=== PATIENT | female | born 1945 | race Caucasian/White ===

== ENCOUNTER 2019-03-27 05:18 | Inpatient (IN) ==
--- NOTE | 2019-03-27 05:55 | Emergency Department Note ---
Entered by Janeth Ty acting as a scribe for Debbie Berger DO History of Present Illness General Chief complaint: Congestion Stated complaint: CONGESTED,TROUBLE BREATHING,WHEEZING Time Seen by Provider: 03/27/19 05:28 Source: patient Limitations: no limitations History of Present Illness Onset (ago): hour(s) (this morning) Location: neck (throat) Severity: similar to prior episodes Pain Consistency: + constant Current Pain Intensity: 0 Quality: + other (congestion) Associated symptoms: + denies other symptoms ( fevers/chills, rhinorrhea, sore throat, difficulty swallowing, dizziness, and nausea/vomiting), + cough and + shortness of breath The patient is a 73 year old female who presents to the Emergency Room with complaints of constant congestion in her throat that was worse this morning. She notes that she has had similar episodes over the last month, noting that decongestants usually provided some relief. The patient complains of a "rattling in her neck" when she breaths. The patient denies any pain. She complains of a productive cough and minor SOB. The patient denies any fevers/chills, rhinorrhea, sore throat, difficulty swallowing, dizziness, and nausea/vomiting. She denies any exposure to anything new. The patient reports that she saw her PCP about her symptoms, and she saw a specialist at [facility]. She notes that a CT of her neck and a blood work was done at that time. No hx of asthma/COPD. No smoking hx. No cardiac hx or CHF. Has never had an EKG. Home Medications Home Medications Medication Instructions Recorded Confirmed Type aspirin 81 mg PO DAILY 03/27/19 03/27/19 History atorvastatin 10 mg PO HS 03/27/19 03/27/19 History benzonatate 100 mg PO TID PRN 03/27/19 03/27/19 History levothyroxine [Synthroid] 125 mcg PO DAILY 03/27/19 03/27/19 History Allergies Allergy/AdvReac Type Severity Reaction Status Date / Time Iodinated Contrast- Oral and Allergy Intermediate sob/unsteady Verified 03/27/19 05:56 IV Dye gait codeine Allergy Mild nausea/vomi Verified 03/27/19 05:56 ting Past Med/Surg History Medical History HLD (hyperlipidemia) Hypothyroidism Papillary thyroid carcinoma Surgical History History of appendectomy History of salpingo-oophorectomy Family History Father Alzheimer disease Mother Alive and well Brother Alive and well Social History Preferred Language: Croatian Communication Ability: Effective Client Coordinator Required: No Beliefs That Will Affect Care: None marital status: Current Living Situation: Spouse Feels Safe at Home: Yes Safety Concerns: Feels Safe At This Time Smoking Status: Never smoker Hx Alcohol Use: No Hx Substance Use: No Review of Systems See HPI for pertinent positives & negatives. and A total of 10 systems reviewed and were otherwise negative Physical Exam Vital Signs Vital Signs - 24 hr 03/27/19 05:23 03/27/19 06:04 Temperature 36.6 C Temperature Source Oral Sepsis Recent Fever Within 48 Hours No Sepsis New/Unexplained Change in Mental Status No Sepsis Action Taken by Nursing No Action Required Pulse Rate 115 H Pulse Rate [Finger] 107 H Respiratory Rate 18 24 Respiratory Depth Normal Blood Pressure 185/87 H Blood Pressure [Left Arm] 179/108 H Blood Pressure Mean 119 Blood Pressure Mean [Left Arm] 131 Pulse Oximetry 100 88 L Oxygen Delivery Method Room Air GENERAL: alert, anxious appearing, well nourished, no distress, non-toxic EYE EXAM: normal conjunctiva, PERRL and EOM's grossly intact OROPHARYNX: no exudate, no erythema, lips, buccal mucosa, and tongue normal and mucous membranes are moist NECK: supple, no nuchal rigidity, no adenopathy, non-tender LUNGS: Normal chest wall mechanics. Tachypnea. HEART: no murmurs, S1 normal and S2 normal ABDOMEN: abdomen soft, non-tender, normo-active bowel sounds, no masses, no rebound or guarding. BACK: Back is symmetrical on inspection and there is no deformity, no midline tenderness, no CVA tenderness. SKIN: no rashes and no bruising UPPER EXTREMITIES: upper extremities are grossly normal. FROM, nml pulses b/l. LOWER EXTREMITIES: No pitting edema. FROM, nml pulses b/l. NEURO EXAM: Normal sensorium, cranial nerves II-XII grossly intact, normal speech, no gross weakness of arms, no gross weakness of legs. Course 0531: The patient was evaluated in room B02. A complete history and physical exam was performed. 0610: I reevaluated the patient and updated her on her results. 0633: [facility] He will further evaluate the patient. 0650: I updated the patient about the plan, and she was in agreement. Consultations Consultation #1: I spoke with Dr. Guan, [facility], about the patients case. He will further evaluate the patient. Time: 06:33 Administered Medications Aspirin (Ecotrin Ectab) 81 mg PO DAILY [facility] Stop: 04/26/19 10:14 Last Admin: 03/27/19 11:38 Dose: 81 mg Documented by: [id number] Atorvastatin Calcium (Lipitor) 10 mg PO QAM [facility] Stop: 04/26/19 10:14 Last Admin: 03/27/19 11:38 Dose: 10 mg Documented by: [id number] Heparin Sodium/Dextrose (Heparin Sodium/Dextrose) 25,000 units in 500 mls @ 17 mls/hr IV .Q24H JORDAN; Protocol Stop: 04/26/19 12:14 Last Titration: 03/27/19 20:29 Dose: 1,000 units/hr, 20 mls/hr Documented by: [id number] Cosigned by: [id number] Titration: 03/27/19 15:18 Dose: 850 units/hr, 17 mls/hr Documented by: [id number] Cosigned by: [id number] Admin: 03/27/19 13:41 Dose: 850 units/hr, 17 mls/hr Documented by: [id number] Cosigned by: [id number] Levothyroxine Sodium (Synthroid) 125 mcg PO DAILYBB [facility] Stop: 04/26/19 10:14 Last Admin: 03/27/19 11:38 Dose: 125 mcg Documented by: [id number] Lisinopril (Zestril) 2.5 mg PO QAM [facility] Stop: 04/26/19 13:59 Last Admin: 03/27/19 15:01 Dose: 2.5 mg Documented by: [id number] Metoprolol Tartrate (Lopressor) 25 mg PO BID [facility] Stop: 04/26/19 20:59 Last Admin: 03/27/19 20:25 Dose: 25 mg Documented by: [id number] Discontinued Medications Aspirin (Aspirin Chew) Confirm Administered Dose 162 mg .ROUTE .STK-MED ONE Stop: 03/27/19 12:15 Last Admin: 03/27/19 12:26 Dose: 162 mg Documented by: [id number] Enoxaparin Sodium (Lovenox) 30 mg SQ Q24H JORDAN Stop: 04/26/19 11:29 Last Admin: 03/27/19 11:39 Dose: 30 mg Documented by: [id number] Furosemide (Lasix) 40 mg IV NOW STA Stop: 03/27/19 06:30 Last Admin: 03/27/19 06:47 Dose: 40 mg Documented by: [id number] Heparin Sodium (Porcine) 4,000 (units/ Syringe) 4 mls @ 10 mls/min IV NOW ONE Stop: 03/27/19 12:31 Last Admin: 03/27/19 12:51 Dose: 10 mls/min Documented by: [id number] Cosigned by: [id number] Heparin Sodium (Porcine) 4,500 (units/ Syringe) 4.5 mls @ 10 mls/min IV ONE STA Stop: 03/27/19 20:32 Last Admin: 03/27/19 20:44 Dose: 10 mls/min Documented by: [id number] Cosigned by: [id number] Metoprolol Tartrate (Lopressor) 25 mg PO ONE STA Stop: 03/27/19 14:03 Last Admin: 03/27/19 14:27 Dose: 25 mg Documented by: [id number] Prednisone (Prednisone) 50 mg PO ONE ONE Stop: 03/27/19 19:01 Last Admin: 03/27/19 20:00 Dose: 50 mg Documented by: [id number] Medical Decision Making Differential Diagnosis Etiologies such as infections, reactive airway disease, COPD, pneumonia, pleural effusion, pulmonary edema, ARDS, pneumothorax, CHF, cardiac ischemia, cardiac tamponade, dysrhythmia, anemia, pulmonary embolism, musculoskeletal, gastrointestinal process, as well as others were entertained. Medical Records Attestation: I reviewed the patient's medical records. Home Medications Current Medication List: was personally reviewed by me Laboratory Data Attestation: I reviewed the patient's lab results. Result diagrams: 03/27/19 05:47 03/27/19 05:47 Lab Results 03/27/19 03/27/19 03/27/19 Range/Units 05:47 05:47 05:47 WBC 12.56 H (4.8-10.8) K/uL RBC 5.01 (4.2-5.4) M/uL Hgb 15.5 (12.0-16.0) g/dL Hct 43.4 (37-47) % MCV 86.6 (80-100) fL MCH 30.9 (25-34) pg MCHC 35.7 (32-36) g/dL RDW Std Deviation 43.4 (36.4-46.3) fL RDW Coeff of Eduard 13.7 (11.5-14.5) % Plt Count 263 (130-400) K/uL MPV 9.9 (7.4-10.4) fL Immature Gran % (Auto) 0.2 % Neut % (Auto) 82.6 % Lymph % (Auto) 11.3 % [place] % (Auto) 5.5 % Eos % (Auto) 0.3 % Baso % (Auto) 0.1 % Immature Gran # (Auto) 0.02 (0.00-0.02) K/uL Neut # (Auto) 10.38 H (1.4-6.5) K/uL Lymph # (Auto) 1.42 (1.2-3.4) K/uL [place] # (Auto) 0.69 H (0.11-0.59) K/uL Eos # (Auto) 0.04 (0-0.5) K/uL Baso # (Auto) 0.01 (0-0.2) K/uL D-Dimer 370 (0-500) ug/L FEU Sodium 142 (136-145) mmol/L Potassium 3.8 (3.5-5.1) mmol/L Chloride 107 (98-107) mmol/L Carbon Dioxide 25 (21-32) mmol/L Anion Gap 10.0 (3-11) BUN 21 H (7-18) mg/dl Creatinine 0.93 (0.6-1.2) mg/dl Est Cr Clr Drug Dosing 56.1 ml/min Est GFR ( Amer) 71.2 Est GFR (Non-Af Amer) 61.4 BUN/Creatinine Ratio 22.8 H (10-20) Glucose 181 H (70-99) mg/dl Calcium 8.6 (8.5-10.1) mg/dl Magnesium 2.0 (1.8-2.4) mg/dl Total Bilirubin 0.5 (0.2-1) mg/dl AST 17 (15-37) U/L ALT 28 (12-78) U/L Alkaline Phosphatase 131 H (45-117) U/L Troponin I 0.029 (0-0.045) ng/ml NT-Pro-B Natriuret Pep 1317 H (0-900) pg/ml Total Protein 6.7 (6.4-8.2) gm/dl Albumin 3.7 (3.4-5.0) gm/dl Globulin 3.0 (2.5-4.0) gm/dl Albumin/Globulin Ratio 1.2 (0.9-2) TSH (0.300-4.500) uIu/ml 03/27/19 Range/Units 05:47 WBC (4.8-10.8) K/uL RBC (4.2-5.4) M/uL Hgb (12.0-16.0) g/dL Hct (37-47) % MCV (80-100) fL MCH (25-34) pg MCHC (32-36) g/dL RDW Std Deviation (36.4-46.3) fL RDW Coeff of Eduard (11.5-14.5) % Plt Count (130-400) K/uL MPV (7.4-10.4) fL Immature Gran % (Auto) % Neut % (Auto) % Lymph % (Auto) % [place] % (Auto) % Eos % (Auto) % Baso % (Auto) % Immature Gran # (Auto) (0.00-0.02) K/uL Neut # (Auto) (1.4-6.5) K/uL Lymph # (Auto) (1.2-3.4) K/uL [place] # (Auto) (0.11-0.59) K/uL Eos # (Auto) (0-0.5) K/uL Baso # (Auto) (0-0.2) K/uL D-Dimer (0-500) ug/L FEU Sodium (136-145) mmol/L Potassium (3.5-5.1) mmol/L Chloride (98-107) mmol/L Carbon Dioxide (21-32) mmol/L Anion Gap (3-11) BUN (7-18) mg/dl Creatinine (0.6-1.2) mg/dl Est Cr Clr Drug Dosing ml/min Est GFR ( Amer) Est GFR (Non-Af Amer) BUN/Creatinine Ratio (10-20) Glucose (70-99) mg/dl Calcium (8.5-10.1) mg/dl Magnesium (1.8-2.4) mg/dl Total Bilirubin (0.2-1) mg/dl AST (15-37) U/L ALT (12-78) U/L Alkaline Phosphatase (45-117) U/L Troponin I (0-0.045) ng/ml NT-Pro-B Natriuret Pep (0-900) pg/ml Total Protein (6.4-8.2) gm/dl Albumin (3.4-5.0) gm/dl Globulin (2.5-4.0) gm/dl Albumin/Globulin Ratio (0.9-2) TSH 0.689 (0.300-4.500) uIu/ml Imaging Data Attestation: I personally reviewed and interpreted this imaging study as follows: My Impression: XR CHEST 2V: No cardiomegaly. No effusions. No focal consolidation. Increased interstitial markings bilaterally. No wide mediastinum. No pneumothorax. ECG Data Attestation: I personally reviewed and interpreted this ECG as follows: Indication: SOB/dyspnea Rate (beats per minute): 110 Rhythm: sinus tachycardia Findings: + other (Prolonged PTC), + LBBB and + PVC Comparison ECG Date: no prior available Blood Pressure Blood Pressure Findings: Elevated blood pressure Blood Pressure Disposition: further management by hospitalist DAVID Mena Patient presenting here with concerning story for shortness of breath that is been going on for approximately 1 month. Patient with no prior cardiac history or prior cardiac testing including an EKG. EKG found to have a left bundle branch block, however patient with no chest pain noted over the course of the month or at present in the emergency room. Patient has no trouble breathing at rest, however with persistent questioning I was able to elicit from her that she feels more fatigued and slightly more winded with exertion. Patient with no other prior pulmonary history. I do not suspect PE. Chest x-ray performed which showed pulmonary edema, and given symptoms and concern for acute CHF, patient given IV Lasix. No evidence of hypertensive emergency. I do not suspect tamponade or pericardial effusion. No evidence of pleural effusion. I do not suspect occult infectious etiology including pericarditis/myocarditis. Given patient's age, concern for evolving ischemic cardiomyopathy or recent ACS. Patient's initial troponin in the emergency room negative. I discussed all results with patient and family at bedside as well as my concern that she required additional inpatient testing and management. They were in agreement with plan. Case discussed with hospitalist. Impression & Plan Dyspnea, Hypoxia, Pulmonary edema, Elevated brain natriuretic peptide (BNP) level, Abnormal ECG Discharge Plan Visit Data *Final* Discharge Date/Time: 03/27/19 08:29 Chief Complaint: Congestion Stated Complaint: CONGESTED,TROUBLE BREATHING,WHEEZING ED Provider: Debbie Berger Discharge Problem: Dyspnea, Hypoxia, Pulmonary edema, Elevated brain natriuretic peptide (BNP) level, Abnormal ECG Patient Disposition: Admitted As Inpatient Discharge Instructions Interventions: ED Discharge Assessment Last Done: 03/27/19 08:29 Discharge Problem: Dyspnea Qualifiers: Dyspnea type: unspecified Qualified Code(s): R06.00 - Dyspnea, unspecified Pulmonary edema Qualifiers: Chronicity: acute Qualified Code(s): J81.0 - Acute pulmonary edema The scribe's documentation has been prepared under my direction and personally reviewed by me in its entirety. I confirm that the note above accurately reflects all work, treatment, procedures, and medical decision making performed by me.
[2019-03-27 06:04] LABS: Basophils # (auto) 0.01 K/uL (0-0.2); Basophils % (auto) 0.1 %; Eosinophils # (auto) 0.04 K/uL (0-0.5); Eosinophils % (auto) 0.3 %; Hematocrit (blood only) 43.4 % (37-47); Hemoglobin 15.5 g/dL (12.0-16.0); Immature Granulocytes # (auto) 0.02 K/uL (0.00-0.02); Immature Granulocytes % (auto) 0.2 %; Lymphocytes # (auto) 1.42 K/uL (1.2-3.4); Lymphocytes % (auto) 11.3 %; Mean Corpuscular Hemoglobin 30.9 pg (25-34); Mean Corpuscular Hgb Conc 35.7 g/dL (32-36); Mean Corpuscular Volume 86.6 fL (80-100); Mean Platelet Volume 9.9 fL (7.4-10.4); Monocytes # (auto) 0.69 K/uL (0.11-0.59); Monocytes % (auto) 5.5 %; Neutrophils # (auto) 10.38 K/uL (1.4-6.5); Neutrophils % (auto) 82.6 %; Platelet Count 263 K/uL (130-400); RDW Coefficient of Variation 13.7 % (11.5-14.5); RDW Standard Deviation 43.4 fL (36.4-46.3); Red Blood Count 5.01 M/uL (4.2-5.4); White Blood Count 12.56 K/uL (4.8-10.8)
[2019-03-27 06:13] LABS: Albumin Level 3.7 gm/dl (3.4-5.0); BUN Creatinine Ratio 22.8 (10-20); Calcium 8.6 mg/dl (8.5-10.1); Creatinine Clr Calc Pharmacy 56.1 ml/min; Est GFR (African American) 71.2; Est GFR (Non-African American) 61.4; Potassium 3.8 mmol/L (3.5-5.1)
[2019-03-27 06:19] LABS: Albumin Globulin Ratio 1.2 (0.9-2); Bilirubin,Total 0.5 mg/dl (0.2-1); Total Protein 6.7 gm/dl (6.4-8.2); Troponin I 0.029 ng/ml (0-0.045)
[2019-03-27] MEDS ORDERED: FUROSEMIDE 40 MG/4 ML VIAL IV STA (06:29)
[2019-03-27 06:44] LABS: D Dimer 370 ug/L FEU (0-500)
--- NOTE | 2019-03-27 07:02 | XRay Report ---
XR chest 2V routine CLINICAL HISTORY: sob, rales dyspnea COMPARISON STUDY: None. FINDINGS: Diffuse bilateral parenchymal infiltrative change versus components of pulmonary edema. Starr phragms are smooth. Costophrenic angles are sharp. IMPRESSION: Findings of diffuse bilateral parenchymal infiltrates versus pulmonary edema. The above report was generated using voice recognition software. It may contain grammatical, syntax or spelling errors. Electronically signed by: Derik Stewart M.D. 03/27/2019 7:01 AM
--- NOTE | 2019-03-27 09:00 | History & Physical Report ---
Date of Service March 27, 2019 Assessment & Plan (1) Pulmonary edema: This is a 73-year-old female who has a known past medical history of hypothyroidism, hyperlipidemia who presents to [facility] secondary to shortness breath and chest tightness that started at 11 PM last evening. Upon arrival patient was hypertensive BP 185/87, tachycardic 100s Lab work consistent with leukocytosis 12.56, H&H normal at 15.5 and 43.4, platelet count 263, d-dimer WNL, BUN 21, creatinine 0.93, glucose 181, mag 2.0, troponin 0.029, proBNP 1317 Chest x-ray consistent with bilateral diffuse parenchymal infiltrates versus pulmonary edema In ED she received Lasix 40 mg IV x1 with improvement of symptoms ECG consistent with sinus tach, PVC, QTC 500ms, LBBB - no ecg to compare so will treat LBBB as new Pt with no prior hx of CHF of CAD Ddx but not limited to: Acute CHF, ACS, PNA Pt with heart score of 4 admit to telemetry continue Lasix 40mg IV daily obtain echocardiogram Cycle troponin q6h x 2 Repeat ECG Daily weights Strict I and O Lipid panel, A1C in a.m. (2) Hypothyroidism: continue levothyroxine TSH WNL (3) HLD (hyperlipidemia): continue statin obtain fasting lipid profile (4) Papillary thyroid carcinoma: s/p FNA 03/18 pathology consistent with papillary thyroid ca follows ENT Dr. Ragland (5) Hyperglycemia: glucose 181 on arrival no hx of DM denies food intake obtain a1c accuchecks AC/HS to monitor (6) DVT prophylaxis: SQ lovenox Disposition: D/C to home when able Follow up: PCP Bekah De Jesus PA-C upon discharge Patient was seen and examined in collaboration with Dr. Santos, please see addendum History of Present Illness Chief Complaint: SOB/Chest tightness starting at 11pm Primary Care Provider: Bekah De Jesus PA-C This is a 73-year-old female who has a known past medical history of hypothyroidism, hyperlipidemia who presents to [facility] secondary to shortness breath and chest tightness that started at 11 PM last evening. and brother at bedside. Patient was lying down when she got an abrupt onset of chest tightness and shortness of breath. Not relieved with position or movement. Complains of overall chest congestion, productive cough with purulent sputum, shortness of breath at rest, SMALL, "rattling in chest." States she had similar sx a few weeks prior which resolved on own and taking decongestants. Denies tiffany chest pain. Denies recent illness, f/c/s, dizziness, lightheaded, hemoptysis, PND, orthopnea, n/v/d, abdominal pain, edema. Denies weight gain, but feels weight fluctuates. Recently had pizza and ice cream, but usually cooks 3 meals a day, eats at home. Does use sea salt on most foods. Of significance pt last saw her PCP 03/05 when it was noted she had enlarged R thyroid gland. U/S was performed which revealed concerning nodule. She was referred to ENT and underwent FNA 03/18. Pathology reveals likely papillary thyroid carcinoma. She was to follow up with ENT today to go over results and obtain appt for surgical excision. Denies FH of CHF, CAD, CA. Mother is in her 90s and alive and well. Father pas sed away 1 year ago due to dementia NS/ND. Lives with . Allergies Allergy/AdvReac Type Severity Reaction Status Date / Time Iodinated Contrast- Oral and Allergy Intermediate sob/unsteady Verified 03/27/19 05:56 IV Dye gait codeine Allergy Mild nausea/vomi Verified 03/27/19 05:56 ting Home Medications Home Medications Medication Instructions Recorded Confirmed Type aspirin 81 mg PO DAILY 03/27/19 03/27/19 History atorvastatin 10 mg PO HS 03/27/19 03/27/19 History benzonatate 100 mg PO TID PRN 03/27/19 03/27/19 History levothyroxine [Synthroid] 125 mcg PO DAILY 03/27/19 03/27/19 History Past Med/Surg History Medical History HLD (hyperlipidemia) Hypothyroidism Papillary thyroid carcinoma Surgical History History of appendectomy History of salpingo-oophorectomy Family History Father Alzheimer disease Mother Alive and well Brother Alive and well Social History Preferred Language: Mongolian Communication Ability: Effective Medical Associate Required: No Beliefs That Will Affect Care: None marital status: Current Living Situation: Spouse Feels Safe at Home: Yes Safety Concerns: Feels Safe At This Time Smoking Status: Never smoker Hx Alcohol Use: No Hx Substance Use: No Review of Systems Review of Systems: All systems reviewed & are unremarkable except as noted in HPI & below Physical Exam Physical Exam: Constitutional: WD/WN, vitals as above, NAD, appears anxious, sitting up in bed, pleasant, conversing easily Head: Normocephalic, Atraumatic Eyes: PERRL, conjunctivae normal, anicteric sclerae ENMT: external ear and nose normal, oropharynx normal Neck: trachea midline, R thyromegaly, normal visual inspection Respiratory: normal respiratory effort, lungs clear to auscultation, no wheeze, rales, rhonchi. Normal insp/exp effort, no accessory muscle use Cardiovascular: tachycardic rate, regular rhythm, no murmur, trace pretibial edema Vessels: no JVD or carotid bruit Chest: normal inspection of chest Abdomen: normal bowel sounds, soft, nontender, no hepatosplenomegaly Musculoskeletal: no cyanosis or clubbing, extremities motor strength 5/5 Skin: no rashes, warm and dry normal turgor Neurologic: PERRL, EOMI, accommodation nl, no face palsy, no dysarthria CN's II-XI intact bilaterally and moves all extremities Psychiatric: A+Ox3, euthymic affect Lymphatic: no cervical or axillary lymphadenopathy : deferred Results & Data Vital Signs (Past 12 Hours) Vital Signs Temp Pulse Pulse Resp BP BP Pulse Ox 03/27/19 08:37 98 H 22 141/87 H 95 03/27/19 06:04 107 H 24 179/108 H 88 L 03/27/19 05:23 36.6 C 115 H 18 185/87 H 100 Laboratory Results Short CBC 03/27/19 Range/Units 05:47 WBC 12.56 H (4.8-10.8) K/uL Hgb 15.5 (12.0-16.0) g/dL Hct 43.4 (37-47) % Plt Count 263 (130-400) K/uL BMP 03/27/19 05:47 Sodium 142 Potassium 3.8 Chloride 107 Carbon Dioxide 25 BUN 21 H Creatinine 0.93 Glucose 181 H Calcium 8.6 Cardiac Enzymes 03/27/19 Range/Units 05:47 Troponin I 0.029 (0-0.045) ng/ml Liver Function 03/27/19 Range/Units 05:47 Total Bilirubin 0.5 (0.2-1) mg/dl AST 17 (15-37) U/L ALT 28 (12-78) U/L Alkaline Phosphatase 131 H (45-117) U/L Albumin 3.7 (3.4-5.0) gm/dl Diagnostic Findings CXR: IMPRESSION: Findings of diffuse bilateral parenchymal infiltrates versus pulmonary edema. Medications Administered Discontinued Medications Furosemide (Lasix) 40 mg IV NOW STA Stop: 03/27/19 06:30 Last Admin: 03/27/19 06:47 Dose: 40 mg Documented by: [id number] ECG Rate (beats per minute): 110 Rhythm: sinus tachycardia Findings: + LBBB and + PVC Additional Comments: unknown baseline Code Status & VTE Plan Code Status Full Code VTE Prophylaxis Plan VTE Prophylaxis will be ordered: Yes Supervising Physician Co-Signing Physician Notes Attending addendum The patient was seen and examined in telemetry unit He has been complaining of shortness of breath with wheezing for the last 1 week or so It improved initially when sitting up but the condition got worse as of yesterday Denies any weight gain or any swelling of the legs, denies any chest pain no palpitation On examination She is very anxious Hemodynamically stable Chest-decreased breath sounds with minimal wheezing and bibasilar crackles Heart-S1-S2, with a 2/6 systolic murmur over precordium Abdomen-benign Extremities-trace edema bilateral CLINICAL REHAB SPECIALIST-very anxious, moving all limbs equally and no focal sensory or motor deficit appreciated Admission lab, EKG and imaging studies reviewed Has LBBB with associated ST-T changes-no prior EKG to compare, troponin mildly elevated and chest x-ray suggestive of CHF Agree with the assessment and plan as outlined above by BIMAL Royal DR (1) Pulmonary edema Chronicity: acute Qualified Code(s): J81.0 - Acute pulmonary edema
[2019-03-27] MEDS ORDERED: BENZONATATE 100 MG CAPSULE PO PRN (09:33)
[2019-03-27] MEDS ORDERED: GLUCOSE 40% GEL 15 GM TUBE PO PRN (09:38)
[2019-03-27] MEDS ORDERED: GLUCAGON FOR INJ 1 MG VIAL SQ PRN (09:38)
[2019-03-27] MEDS ORDERED: GLUCOSE 10 TABS/TUBE PO PRN (09:38)
[2019-03-27] MEDS ORDERED: DEXTROSE 50% 50 ML SYRINGE IV PRN (09:38)
[2019-03-27] MEDS ORDERED: CARBOHYDRATES FOR HYPOGLYCEMIA PO PRN (09:38)
[2019-03-27 11:06] LABS: Prothrombin Time 10.3 Seconds (9.0-12.0)
[2019-03-27] MEDS ORDERED: ENOXAPARIN INJ 30 MG/0.3 ML SYR SQ SCH (11:30)
[2019-03-27] MEDS: ASPIRIN 81 MG ECTAB PO SCH (11:38)
[2019-03-27] MEDS: ATORVASTATIN 10 MG TAB PO SCH (11:38)
[2019-03-27] MEDS: LEVOTHYROXINE SODIUM 125 MCG TABLET PO SCH (11:38)
[2019-03-27 11:42] LABS: Estimated Average Glucose 143 mg/dl; Hemoglobin A1C 6.6 % (4.5-5.6)
[2019-03-27] MEDS ORDERED: ASPIRIN 81 MG CHEW PO STA (11:52)
[2019-03-27] MEDS ORDERED: ASPIRIN 81 MG CHEW ONE (12:14)
[2019-03-27] MEDS ORDERED: HEPARIN SODIUM/DEXTROSE 25,000 UNITS/500 ML BAG IV SCH (12:15)
[2019-03-27] MEDS ORDERED: Heparin IV Low Dose WITH Bolus IV SCH (12:15)
[2019-03-27] MEDS ORDERED: HEPARIN IV BOLUS 4,000 UNITS in SYRINGE 0 ML IV ONE (12:30)
[2019-03-27 13:38] LABS: Partial Thromboplastin Ratio 0.9; Partial Thromboplastin Time 24.8 Seconds (21.0-31.0)
[2019-03-27] MEDS ORDERED: METOPROLOL TARTRATE 25 MG TAB PO STA (14:02)
--- NOTE | 2019-03-27 14:04 | Cardiology Consultation ---
Date of Consultation March 27, 2019 Assessment & Plan (1) Acute systolic CHF (congestive heart failure), NYHA class 4: (2) Elevated troponin I level: (3) Cardiomyopathy: (4) LBBB (left bundle branch block): (5) Papillary thyroid carcinoma: Plan/Recommendations: 73-year-old female admitted with acute dyspnea, decompensated systolic heart failure, and echocardiographic evidence of severe cardiomyopathy with ejection fraction of 25 to 29%. Initiate evidence-based heart failure therapy including beta-felicia and DIANA inhibitor. Continue IV diuretic although volume status markedly improved after 1 dose of IV furosemide. Follow daily weight, GFR, and fluid balance. Elevated troponin likely related to demand ischemia/acute decompensated systolic heart failure. Underlying ischemic heart disease not excluded at this time. Natural history, pathophysiology, differential diagnosis associated with cardiomyopathy discussed with the patient and her at length. Recommend further ischemic evaluation with cardiac catheterization. Risk, benefits, alternatives to procedure discussed at length. Patient is agreeable to procedure and potential intervention if indicated. Recently diagnosed with thyroid cancer. Bare-metal stenting preferred at this time. Documented contra st allergy. Will prep patient with prednisone this evening with doses of Pepcid and Benadryl in the a.m. Further recommendations pending response to medical therapies, results of cardiac catheterization, and clinical course. Consider LifeVest prior to discharge. Thank you for allowing to participate in the care of your patient. History of Present Illness Reason for Consultation: Congestive heart failure, elevated troponin Requesting Physician: Lizbet Thomas PA-C Attending Physician: Thaddeus Santos MD History of Present Illness 73-year-old female presented to the emergency department last evening secondary to acute shortness of breath. Patient noted acute dyspnea in the evening when she attempted to lie supine. She became concerned and anxious. Brought to the emergency department by family. X-ray consistent with pulmonary edema and patient treated with IV furosemide. Fluid balance negative 1600 cc since admission. Patient admitted to the progressive care unit. Seen and examined at the bedside. is present. Patient currently feeling much better after diuretic therapy. Denies chest pain, palpitations, lightheadedness, dizziness, syncope, or near syncope. Reports mild chronic dyspnea on exertion however denies any recent change in functional capacity. Notes 2 pillow orthopnea in general. Attributes exertional symptoms to "getting older". Denies personal history of coronary disease, congestive heart failure, dysrhythmia, rheumatic fever as a child, or diabetes. Preliminary review of resting 2D transthoracic echocardiogram demonstrates severe LV systolic function with an estimated ejection fraction of 25 to 29%. No significant valvular pathology. ECG demonstrates left bundle branch block. Chronicity unknown. Allergies Allergy/AdvReac Type Severity Reaction Status Date / Time Iodinated Contrast- Oral and Allergy Intermediate sob/unsteady Verified 03/27/19 05:56 IV Dye gait codeine Allergy Mild nausea/vomi Verified 03/27/19 05:56 ting Home Medications Home Medications Medication Instructions Recorded Confirmed Type aspirin 81 mg PO DAILY 03/27/19 03/27/19 History atorvastatin 10 mg PO HS 03/27/19 03/27/19 History benzonatate 100 mg PO TID PRN 03/27/19 03/27/19 History levothyroxine [Synthroid] 125 mcg PO DAILY 03/27/19 03/27/19 History Patient History Medical History HLD (hyperlipidemia) Hypothyroidism Papillary thyroid carcinoma Surgical History History of appendectomy History of salpingo-oophorectomy Family History Father Alzheimer disease Mother Alive and well Brother Alive and well Social History Preferred Language: Albanian Communication Ability: Effective Lock Setter Required: No Beliefs That Will Affect Care: None marital status: Current Living Situation: Spouse Feels Safe at Home: Yes Safety Concerns: Feels Safe At This Time Smoking Status: Never smoker Hx Alcohol Use: No Hx Substance Use: No Review of Systems Review of Systems: All systems reviewed & are unremarkable except as noted in HPI & below Physical Exam Physical Exam: General: NAD, AAO x3, well nourished. HEENT: Normocephalic. Atraumatic. Conjunctiva pink, no scleral icterus. Neck: No carotid bruits, the carotid upstrokes are brisk. No JVD. No HJR Heart: Regular normal S-1 and S-2 no S-3 or S-4 gallop. No murmurs or rub appreciated. PMI is not displaced. No RV heave. Lungs: Faint left-sided expiratory wheeze noted. No rales or rhonchi. Abdomen: Normal bowel sounds. Soft. Nontender. No masses or organomegaly. No abdominal bruits. Extremities: No clubbing, cyanosis, or edema. Pulses: radial=2/4, Dorsalis pedis =2/4, posterior tibial=2/4. Neuro: Cranial nerves grossly intact. No focal motor deficit. Results & Data Vital Signs (Past 12 Hours) Vital Signs Temp Pulse Pulse Resp BP BP Pulse Ox 03/27/19 11:51 36.8 C 72 16 132/69 96 03/27/19 10:00 36.6 C 101 H 18 126/85 94 03/27/19 09:38 36.6 C 101 H 18 126/85 94 03/27/19 08:37 98 H 22 141/87 H 95 03/27/19 06:04 107 H 24 179/108 H 88 L 03/27/19 05:23 36.6 C 115 H 18 185/87 H 100 Laboratory Results Laboratory Results - last 24 hr 03/27/19 03/27/19 03/27/19 05:47 05:47 05:47 WBC 12.56 H RBC 5.01 Hgb 15.5 Hct 43.4 MCV 86.6 MCH 30.9 MCHC 35.7 RDW Std Deviation 43.4 RDW Coeff of Eduard 13.7 Plt Count 263 MPV 9.9 Immature Gran % (Auto) 0.2 Neut % (Auto) 82.6 Lymph % (Auto) 11.3 [place] % (Auto) 5.5 Eos % (Auto) 0.3 Baso % (Auto) 0.1 Immature Gran # (Auto) 0.02 Neut # (Auto) 10.38 H Lymph # (Auto) 1.42 [place] # (Auto) 0.69 H Eos # (Auto) 0.04 Baso # (Auto) 0.01 PT INR APTT PTT Ratio D-Dimer 370 Sodium 142 Potassium 3.8 Chloride 107 Carbon Dioxide 25 Anion Gap 10.0 BUN 21 H Creatinine 0.93 Est Cr Clr Drug Dosing 56.1 Est GFR ( Amer) 71.2 Est GFR (Non-Af Amer) 61.4 BUN/Creatinine Ratio 22.8 H Glucose 181 H Estimat Average Glucose Hemoglobin A1c Calcium 8.6 Magnesium 2.0 Total Bilirubin 0.5 AST 17 ALT 28 Alkaline Phosphatase 131 H Troponin I 0.029 NT-Pro-B Natriuret Pep 1317 H Total Protein 6.7 Albumin 3.7 Globulin 3.0 Albumin/Globulin Ratio 1.2 TSH 03/27/19 03/27/19 03/27/19 05:47 10:41 10:41 WBC RBC Hgb Hct MCV MCH MCHC RDW Std Deviation RDW Coeff of Eduard Plt Count MPV Immature Gran % (Auto) Neut % (Auto) Lymph % (Auto) [place] % (Auto) Eos % (Auto) Baso % (Auto) Immature Gran # (Auto) Neut # (Auto) Lymph # (Auto) [place] # (Auto) Eos # (Auto) Baso # (Auto) PT INR APTT PTT Ratio D-Dimer Sodium Potassium Chloride Carbon Dioxide Anion Gap BUN Creatinine Est Cr Clr Drug Dosing Est GFR ( Amer) Est GFR (Non-Af Amer) BUN/Creatinine Ratio Glucose Estimat Average Glucose 143 Hemoglobin A1c 6.6 H Calcium Magnesium Total Bilirubin AST ALT Alkaline Phosphatase Troponin I 0.124 H* NT-Pro-B Natriuret Pep Total Protein Albumin Globulin Albumin/Globulin Ratio TSH 0.689 03/27/19 03/27/19 10:41 10:41 WBC RBC Hgb Hct MCV MCH MCHC RDW Std Deviation RDW Coeff of Eduard Plt Count MPV Immature Gran % (Auto) Neut % (Auto) Lymph % (Auto) [place] % (Auto) Eos % (Auto) Baso % (Auto) Immature Gran # (Auto) Neut # (Auto) Lymph # (Auto) [place] # (Auto) Eos # (Auto) Baso # (Auto) PT 10.3 INR 1.0 APTT 24.8 PTT Ratio 0.9 D-Dimer Sodium Potassium Chloride Carbon Dioxide Anion Gap BUN Creatinine Est Cr Clr Drug Dosing Est GFR ( Amer) Est GFR (Non-Af Amer) BUN/Creatinine Ratio Glucose Estimat Average Glucose Hemoglobin A1c Calcium Magnesium Total Bilirubin AST ALT Alkaline Phosphatase Troponin I NT-Pro-B Natriuret Pep Total Protein Albumin Globulin Albumin/Globulin Ratio TSH Diagnostic Findings ECG: Sinus rhythm, left bundle branch block. (1) Cardiomyopathy Cardiomyopathy type: other Qualified Code(s): I42.8 - Other cardiomyopathies
[2019-03-27] MEDS: LISINOPRIL 2.5 MG TAB PO SCH (15:01)
[2019-03-27] MEDS ORDERED: predniSONE 50 MG TAB PO ONE (19:00)
[2019-03-27 20:03] LABS: Partial Thromboplastin Ratio 1.3; Partial Thromboplastin Time 34.3 Seconds (21.0-31.0)
[2019-03-27] MEDS: METOPROLOL TARTRATE 25 MG TAB PO SCH (20:25)
[2019-03-27] MEDS ORDERED: HEPARIN IV BOLUS 4,500 UNITS in SYRINGE 0 ML IV STA (20:31)
[2019-03-28] MEDS ORDERED: predniSONE 50 MG TAB PO ONE ×2 (02:05→08:00)
[2019-03-28 02:54] LABS: Hematocrit (blood only) 41.6 % (37-47); Hemoglobin 14.4 g/dL (12.0-16.0); Mean Corpuscular Hemoglobin 30.5 pg (25-34); Mean Corpuscular Hgb Conc 34.6 g/dL (32-36); Mean Corpuscular Volume 88.1 fL (80-100); Mean Platelet Volume 10.1 fL (7.4-10.4); Platelet Count 235 K/uL (130-400); RDW Standard Deviation 45.3 fL (36.4-46.3); Red Blood Count 4.72 M/uL (4.2-5.4); White Blood Count 9.08 K/uL (4.8-10.8)
[2019-03-28 03:14] LABS: Partial Thromboplastin Ratio 1.9
[2019-03-28 03:23] LABS: BUN Creatinine Ratio 25.2 (10-20); Calcium 8.7 mg/dl (8.5-10.1); Creatinine Clr Calc Pharmacy 54.1 ml/min; Est GFR (African American) 62.2; Est GFR (Non-African American) 53.6; Magnesium 2.2 mg/dl (1.8-2.4)
[2019-03-28] MEDS: LEVOTHYROXINE SODIUM 125 MCG TABLET PO SCH (05:57)
[2019-03-28] MEDS ORDERED: DEXTROSE 50% 50 ML SYRINGE IV PRN (06:08)
[2019-03-28] MEDS ORDERED: GLUCOSE 40% GEL 15 GM TUBE PO PRN (06:08)
[2019-03-28] MEDS ORDERED: GLUCAGON FOR INJ 1 MG VIAL SQ PRN (06:08)
[2019-03-28] MEDS ORDERED: GLUCOSE 10 TABS/TUBE PO PRN (06:08)
[2019-03-28] MEDS ORDERED: CARBOHYDRATES FOR HYPOGLYCEMIA PO PRN (06:08)
[2019-03-28] MEDS ORDERED: INSULIN GLARGINE SOLOSTAR 100 UNITS/ML 3 ML PEN SQ ONE (06:30)
[2019-03-28] MEDS: INSULIN ASPART 100 UNITS/ML 3 ML PEN SC SCH ×4 (06:42→21:00)
[2019-03-28] MEDS: LISINOPRIL 2.5 MG TAB PO SCH (07:33)
[2019-03-28] MEDS: METOPROLOL TARTRATE 25 MG TAB PO SCH (07:33)
[2019-03-28] MEDS: ASPIRIN 81 MG ECTAB PO SCH (07:33)
[2019-03-28] MEDS ORDERED: FUROSEMIDE 40 MG in SYRINGE 0 ML IV SCH (09:00)
[2019-03-28] MEDS ORDERED: FAMOTIDINE 20 MG TAB PO ONE (10:41)
--- NOTE | 2019-03-28 10:45 | Cardiology Progress Note ---
Date of Service March 28, 2019 Assessment & Plan (1) Acute systolic CHF (congestive heart failure), NYHA class 4: (2) Elevated troponin I level: (3) Cardiomyopathy: (4) LBBB (left bundle branch block): (5) Papillary thyroid carcinoma: Plan/Recommendations: Risks, benefits, and alternatives to cardiac catheterization discussed with patient. She is agreeable. Treated with prednisone x3 doses, and diphenhydramine due to history of contrast reaction. Patient denies hives or anaphylaxis. Reports a mild episode of dyspnea after recent thyroid studies. She will receive an additional 25 mg of Benadryl, and 20 mg of Pepcid now. Beta-felicia, DIANA inhibitor, and diuretic therapy will be continued as previously ordered. Further recommendations pending results of cardiac catheterization. Subjective Patient seen and examined at the bedside. Feeling well overnight. No dysrhythmias on telemetry. Tolerating beta-felicia and DIANA inhibitor. A.m. labs stable. Scheduled for cardiac catheterization today. Review of Systems Review of Systems: All systems reviewed & are unremarkable except as noted in HPI & below Physical Exam Physical Exam: General: NAD, AAO x3, well nourished. HEENT: Normocephalic. Atraumatic. Conjunctiva pink, no scleral icterus. Neck: No carotid bruits, the carotid upstrokes are brisk. No JVD. No HJR Heart: Regular normal S-1 and S-2 no S-3 or S-4 gallop. No murmurs or rub appreciated. PMI is not displaced. No RV heave. Lungs: Clear bilateral without rales , rhonchi, or wheeze. Abdomen: Normal bowel sounds. Soft. Nontender. No masses or organomegaly. No abdominal bruits. Extremities: No clubbing, cyanosis, or edema. Pulses: radial=2/4, Dorsalis pedis =2/4, posterior tibial=2/4. Neuro: Cranial nerves grossly intact. No focal motor deficit. Results & Data Vital Signs (Past 12 Hours) Vital Signs Temp Pulse Pulse Resp BP Pulse Ox 03/28/19 08:00 77 03/28/19 07:40 36.5 C 92 H 18 144/84 H 94 03/28/19 02:55 36.5 C 68 18 104/65 91 03/27/19 23:30 36.4 C L 69 18 102/55 L 91 (1) Cardiomyopathy Cardiomyopathy type: other Qualified Code(s): I42.8 - Other cardiomyopathies
[2019-03-28] MEDS ORDERED: HEPARIN (PORCINE) 1000 UNIT/ML 10 ML (CATH LAB USE ONLY) ONE (11:40)
[2019-03-28] MEDS ORDERED: fentaNYL citrate 100 MCG/2 ML VIAL ONE (11:40)
[2019-03-28] MEDS ORDERED: MIDAZOLAM HCL 1 MG/ML 2ML VIAL ONE (11:40)
[2019-03-28] MEDS ORDERED: NiCARDipine HCL INJ 2.5 MG/ML 10 ML AMP ONE (11:40)
[2019-03-28] MEDS ORDERED: NITROGLYCERIN/D5W 100MCG/ML 20ML SYR ONE (11:41)
--- NOTE | 2019-03-28 12:03 | Pre Anesthesia Assessment ---
Date of Service March 28, 2019 Pre Sedation Assessment Vital Signs Temp Pulse Pulse Resp BP Pulse Ox 03/28/19 08:00 77 03/28/19 07:40 36.5 C 92 H 18 144/84 H 94 03/28/19 02:55 36.5 C 68 18 104/65 91 03/27/19 23:30 36.4 C L 69 18 102/55 L 91 03/27/19 19:25 36.8 C 67 20 107/66 94 03/27/19 17:04 80 03/27/19 15:15 36.5 C 72 20 104/64 93 Cardiovascular RRR, no murmur, no edema Respiratory + clear to auscultation bilaterally Pre-Sedation Airway Assessment Smoking Status: Never smoker Hx Sleep Apnea: No Hx Difficult Intubation: No Short, Thick Neck: No Mallampati Class: II ASA: ASA4 Procedure Planning Contraindications for Sedation: none Current Medications Reviewed: Yes Notes The planned sedation has been discussed with the patient. Informed Consent was obtained. I have identified the patient, determined the appropriateness of se dation and have assessed the patient immediately prior to the procedure. All medicine(s) and interventions are by my order.
[2019-03-28] MEDS ORDERED: ADENOSINE IV SOLN 3 MG/ML 20 ML VIAL IV ONE (12:54)
--- NOTE | 2019-03-28 13:05 | Post Anesthesia Assessment ---
Date of Service March 28, 2019 Post Sedation Assessment Vital Signs Temp Pulse Pulse Resp BP Pulse Ox 03/28/19 08:00 77 03/28/19 07:40 36.5 C 92 H 18 144/84 H 94 03/28/19 02:55 36.5 C 68 18 104/65 91 03/27/19 23:30 36.4 C L 69 18 102/55 L 91 03/27/19 19:25 36.8 C 67 20 107/66 94 03/27/19 17:04 80 03/27/19 15:15 36.5 C 72 20 104/64 93 Recovery Score Activity: Moves 4 extremities Respiration: Deep Breath/Cough Circulation: +/-20% PreAnes Value Consciousness: Fully Awake Oxygen Saturation: > 92% On Room Air Post Sedation Plan On clinical assessment, the patient appears to have tolerated the sedation with out complications. Patient is recovering as anticipated. Patient will continue to be monitored by nursing and may be discharged when sedation discharge criteria are met per below protocol. Upon Completions of procedure and additional 15 minutes continue every 5 minute vital signs and the P.A.R. score; then discharge to a Phase I or Fast Track to Phase II per the following guidelines: * Discharge Patient to appropriate Phase II area if PAR is 8 or greater or return to pre- procedure baseline. The post - procedure orders will be as directed. * If PAR score is less than 8 or not return to pre-procedure baseline then patient will follow Phase I monitoring till PAR is reached for Phase II. The Phase I may be done in procedure room or may call to secure a Phase I area. * If naloxone or flumazenil are used for reversal, hold in Phase I for continued monitoring from when last reversal dose was given for a minimum of 60 minutes or longer pending the nurse and/or physician discretion of patient condition before discharge to Phase II. Please call the Sedation Physician to re-evaluate and complete post-note for discharge to Phase II area. Do NOT discharge from procedure sedation or Phase 1 until post- sedation evaluation note is complete by procedure /sedation MD Sedation Discharge Instructions to be given to the patient at discharge to home.
--- NOTE | 2019-03-28 13:09 | Cardiac Catheterization ---
Cardiac Cath Procedure Full Procedure Date March 28, 2019 Pre-Procedure Diagnosis Pre-Procedure Diagnosis: Cardiomyopathy AUC Score AUC Score: 8 Post-Procedure Diagnosis Post-Procedure Diagnosis: Moderate CAD Procedure(s) Performed Procedure(s) Performed: Coronary Angiography and Left Heart Cath Register Clerk Sp Maurice DO Panel Edge Painter(s) Kris RTArben Estimated Blood Loss Estimated Blood Loss: 5cc Medication(s) Medication(s): Heparin, Lidocaine 1%, Nicardipine, Nitroglycerin and Versed Summary of Findings 60% ostial diagonal #1, large vessel, mildly calcified Otherwise, mild nonobstructive CAD Hemodynamics Rest Ao:: 90/49/67 Final Ao: 114/50/76 LV: 117/0/1 Recommendations Recommendations: Medical Therapy and/or Counseling and Management Recommendatons (FFR D1) Specimens Specimens: None Radiation Exposure (mGy) 487 Contrast (mls) 90 Fluids (cc crystalloids) Fluids (cc crystalloids): 74cc, NSS Anesthesia Moderate sedation. Start 12:20. End 12:56. sedation monitor: Tom TITUS Procedural Complication(s) None ACC Data: Lime Puller Cardiac Status Clinical evaluation leading to the procedure CAD Presenation: Non STEMI Anginal Classification: CCS IV Heart Failure: NYHA Class: CCS IV Cardiogenic Shock within 24 Hours: No Cardiac Arrest within 24 Hours: No Imaging Studies Past 6 Months: No Stress Studies Past 6 Months: No STEMI OR Non-STEMI Symptom Onset Date: 03/27/19 Symptom Onset Time: 04:32 Thrombolytics: No Coronary Anatomy Dominant: Co-Dominant Left Main (% Stenosis): Normal LAD (% Stenosis): Ostial (20%), Proximal (10%), Mid (30%, moderately calcified at origin of D1) and Distal (10% diffuse) D1 (% Stenosis): Ostial (60%, mildly calcified) and Mid (30%) Circumflex (% Stenosis): Mid (30% distal to OM2) OM1 (% Stenosis): Proximal (10%) and Distal (10% diffuse) OM2 (% Stenosis): Normal OM3 (% Stenosis): Normal L PL1 (% Stenosis): Normal L PDA (% Stenosis): Normal RCA (% Stenosis): Normal R PDA (% Stenosis): Normal (There is a secondary posterior branch (normal) in addition to RPDA.) AM (% Stenosis): Normal Ramus (% Stenosis): Distal (10%) Diagnostic Physicians Name: Sp Maurice DO Closure Device Recommendations: Medical Therapy and/or Counseling and Management Recommendatons (FFR D1)
--- NOTE | 2019-03-28 13:41 | Post Anesthesia Assessment ---
Date of Service March 28, 2019 Post Sedation Assessment Vital Signs Temp Pulse Pulse Resp BP Pulse Ox 03/28/19 08:00 77 03/28/19 07:40 97.7 F 92 H 18 144/84 H 94 03/28/19 02:55 97.7 F 68 18 104/65 91 03/27/19 23:30 97.5 F L 69 18 102/55 L 91 03/27/19 19:25 98.2 F 67 20 107/66 94 03/27/19 17:04 80 03/27/19 15:15 97.7 F 72 20 104/64 93 Recovery Score Activity: Moves 4 extremities Respiration: Deep Breath/Cough Circulation: +/-20% PreAnes Value Consciousness: Fully Awake Oxygen Saturation: > 92% On Room Air Discharge Sedation Level of Care: Fast Track Phase II Post Sedation Plan On clinical assessment, the patient appears to have tolerated the sedation without complications. Patient is recovering as anticipated. Patient will continue to be monitored by nursing and may be discharged when sedation discharge criteria are met per below protocol. Upon Completions of procedure and additional 15 minutes continue every 5 minute vital signs and the P.A.R. score; then discharge to a Phase I or Fast Track to Phase II per the following guidelines: * Discharge Patient to appropriate Phase II area if PAR is 8 or greater or return to pre- procedure baseline. The post - procedure orders will be as directed. * If PAR score is less than 8 or not return to pre-procedure baseline then patient will follow Phase I monitoring till PAR is reached for Phase II. The Phase I may be done in procedure room or may call to secure a Phase I area. * If naloxone or flumazenil are used for reversal, hold in Phase I for continued monitoring from when last reversal dose was given for a minimum of 60 minutes or longer pending the nurse and/or physician discretion of patient condition before discharge to Phase II. Please call the Sedation Physician to re-evaluate and complete post-note for discharge to Phase II area. Do NOT discharge from procedure sedation or Phase 1 until post- sedation evaluation note is complete by procedure /sedation MD Sedation Discharge Instructions to be given to the patient at discharge to home.
--- NOTE | 2019-03-28 13:47 | Cardiac Catheterization ---
ACC Data: Bead Supervisor Cardiac Status Clinical evaluation leading to the procedure CAD Presenation: Sx unlikely to be ischemic Anginal Classification: CCS II Heart Failure: NYHA Class: CCS II Cardiogenic Shock within 24 Hours: No Cardiac Arrest within 24 Hours: No Imaging Studies Past 6 Months: Yes Stress Studies Past 6 Months: No Diagnostic Physicians Name: Abdelrahman Alexis MD Status: Elective Closure Device Percutaneous Entry Location: Radial Closure Device: Radial Band Recommendations: Medical Therapy and/or Counseling Intraprocedure Events Significant Disection: No Perforation: No Cardiac Cath Procedure Full Procedure Date March 28, 2019 Pre-Procedure Diagnosis Pre-Procedure Diagnosis: CAD and Cardiomyopathy AUC Score AUC Score: 7 Post-Procedure Diagnosis Post-Procedure Diagnosis: Moderate CAD Procedure(s) Performed Procedure(s) Performed: Coronary Angiography and Fractional [place] Instructional Technologist Abdelrahman Alexis MD Service Vehicle Operator(s) Kris P[place] Estimated Blood Loss Estimated Blood Loss: 5cc Medication(s) Medication(s): Adenosine, Fentanyl, Heparin, Nicardipine and Versed Summary of Findings For full details of patient's coronary angiography please see catheter report dictated by Dr. Maurice. Briefly, patient was found to have a moderate stenosis involving the ostium of a large second diagonal. Decision to further evaluate with FFR. Procedure: Left main was cannulated with a JL 3.5 guide Run-through wire placed into distal diagonal ASIST FFR catheter placed into diagonal across lesion Pd/Pa 0.91 FFR 0.81 Post procedure angiography revealed no apparent complications. Summary: 1. Moderate nonobstructive single-vessel coronary artery disease Large second diagonal ostium FFR 0.81 Recommendations: Maximize guideline directed medical therapy for new cardiomyopathy ASCVD risk factor modification If in the future were to have refractory angina, could consider repeat functional assessment and complex intervention to diagonal LAD bifurcation Recommendations Recommendations: Medical Therapy and/or Counseling Specimens Specimens: None Drains Drains: None Anesthesia Moderate sedation Procedural Complication(s) None Disposition PCU
[2019-03-28] MEDS ORDERED: METOPROLOL TARTRATE 25 MG TAB PO STA (14:29)
--- NOTE | 2019-03-28 14:48 | Hospitalist Progress Note ---
Date of Service March 28, 2019 Assessment & Plan (1) Acute systolic CHF (congestive heart failure), NYHA class 4: Presented with shortness of breath for more than 1 week duration Chest x-ray did show acute congestive heart failure secondary to cardiomyopathy as below Received intravenous Lasix with very good response We will continue diuretics Appreciate cardiology input and recommendation (2) Cardiomyopathy: Presented with shortness of breath as above Echo-left ventricular systolic function is severely reduced, EF 25 to 30%, mild concentric left medical hypertrophy, septal motion consistent with conduction abnormality, trace inferior septum is akinetic to dyskinetic, the base and mid inferior wall is severely hypokinetic to akinetic, otherwise moderate diffuse hypokinesis, left atrium is mildly dilated aortic valve sclerosis mild without significant stenosis,, mild mitral regurgitation and trivial loculated anterior pleural effusion Status post cardiac cath: Beats show 60% ostial diagonal #1, large vessel, mildly calcified obstruction, otherwise mild nonobstructive CAD Medical management contemplated (3) Pulmonary edema: From admission note: This is a 73-year-old female who has a known past medical history of hypothyroidism, hyperlipidemia who presents to [facility] secondary to shortness breath and chest tightness that started at 11 PM last evening. Upon arrival patient was hypertensive BP 185/87, tachycardic 100s Lab work consistent with leukocytosis 12.56, H&H normal at 15.5 and 43.4, platelet count 263, d-dimer WNL, BUN 21, creatinine 0.93, glucose 181, mag 2.0, troponin 0.029, proBNP 1317 Chest x-ray consistent with bilateral diffuse parenchymal infiltrates versus pulmonary edema In ED she received Lasix 40 mg IV x1 with improvement of symptoms ECG consistent with sinus tach, PVC, QTC 500ms, LBBB - no ecg to compare so will treat LBBB as new Pt with no prior hx of CHF of CAD Ddx but not limited to: Acute CHF, ACS, PNA Pt with heart score of 4 (4) Hypothyroidism: continue levothyroxine TSH WNL (5) HLD (hyperlipidemia): continue statin obtain fasting lipid profile (6) Papillary thyroid carcinoma: s/p FNA 03/18 pathology consistent with papillary thyroid ca follows ENT Dr. Ragland (7) DVT prophylaxis: Intravenous heparin Discontinued Status post cardiac cath SCDs for now Likely discharge tomorrow Follow up: PCP Bekah De Jesus PA-C upon discharge Clinically stable Status post cardiac cath today 03/28 Likely be discharged tomorrow Subjective 03/28 Patient was seen and examined in telemetry floor She has been complaining of shortness of breath with wheezing for the last 1 week or so before admission It improved initially when sitting up but the condition got worse as of yesterday Denies any weight gain or any swelling of the legs, denies any chest pain no palpitatio Noted to have cardiomyopathy on echo She complains to have some weakness but denies any more shortness of breath at rest and or palpitation She will go for cardiac catheterization today Review of Systems Review of Systems: All systems reviewed and are unremarkable except as noted below Constitutional: Very anxious Respiratory: + dyspnea on exertion Cardiovascular: no chest pain Physical Exam Physical Exam: Lying in bed without any symptoms Constitutional: + ill appearing; no acute distress Eyes: PERRL, conjunctivae normal, anicteric sclerae ENMT: external ear and nose normal, oropharynx normal Mallampati Class: II Neck: trachea midline, no thyromegaly Respiratory: normal respiratory effort; no respiratory distress Auscultation: lungs clear to auscultation bilaterally Cardiovascular: Rate/Rhythm: regular rate and regular rhythm Heart Sounds: no murmur Gastrointestinal (Abdomen): Inspection/Auscultation: abdomen normal to inspection and normal bowel sounds Percussion/Palpation: abdomen soft Musculoskeletal: No acute arthritis in any of the joint Neurologic: moves all extremities; no focal motor deficits Very anxious Psychiatric: Mood: + anxious mood Lymphatic: no cervical or axillary lymphadenopathy Results & Data Vital Signs (Past 12 Hours) Vital Signs Temp Pulse Pulse Resp BP Pulse Ox 03/28/19 08:00 77 03/28/19 07:40 36.5 C 92 H 18 144/84 H 94 03/28/19 02:55 36.5 C 68 18 104/65 91 Laboratory Results Short CBC 03/28/19 Range/Units 02:46 WBC 9.08 (4.8-10.8) K/uL Hgb 14.4 (12.0-16.0) g/dL Hct 41.6 (37-47) % Plt Count 235 (130-400) K/uL BMP 03/28/19 02:46 Sodium 141 Potassium 4.0 Chloride 106 Carbon Dioxide 29 BUN 26 H Creatinine 1.04 Glucose 194 H Calcium 8.7 Cardiac Enzymes 03/27/19 Range/Units 16:46 Troponin I 0.121 H* (0-0.045) ng/ml Medications Administered Current Inpatient Medications Aspirin (Ecotrin Ectab) 81 mg PO DAILY JORDAN Stop: 04/26/19 10:14 Last Admin: 03/28/19 07:33 Dose: 81 mg Documented by: Atorvastatin Calcium (Lipitor) 10 mg PO QAM JORDAN Stop: 04/26/19 10:14 Last Admin: 03/27/19 11:38 Dose: 10 mg Documented by: Benzonatate (Tessalon Perle) 100 mg PO TID PRN PRN Reason: Cough Stop: 04/26/19 09:32 Dextrose (Dextrose 50%) 25 - 50 ml IV UD PRN; Protocol PRN Reason: Hypoglycemia Protocol Stop: 04/26/19 09:37 Glucagon (Glucagen) 1 mg SQ UD PRN; Protocol PRN Reason: Hypoglycemia Protocol Stop: 04/26/19 09:37 Glucose (Glucose 40%) 15 - 30 gm PO UD PRN; Protocol PRN Reason: Hypoglycemia Protocol Stop: 04/26/19 09:37 Glucose (Dex4 Glucose) 4 - 8 tabs PO UD PRN; Protocol PRN Reason: Hypoglycemia Protocol Stop: 04/26/19 09:37 Furosemide 40 mg/ Syringe 4 mls @ 4 mls/min IV DAILY JORDAN Stop: 04/27/19 08:59 Insulin Aspart (Novolog Flexpen) 0 units SC Q6 JORDAN Stop: 04/27/19 06:29 Last Admin: 03/28/19 12:44 Dose: Not Given Documented by: Insulin Glargine (Lantus Solostar Pen) 5 units SQ DAILY JORDAN Stop: 04/28/19 08:59 Levothyroxine Sodium (Synthroid) 125 mcg PO DAILYBB JORDAN Stop: 04/26/19 10:14 Last Admin: 03/28/19 05:57 Dose: 125 mcg Documented by: Lisinopril (Zestril) 5 mg PO QAM JORDAN Stop: 04/28/19 08:59 Metoprolol Tartrate (Lopressor) 25 mg PO Q8 JORDAN Stop: 04/27/19 21:59 Metoprolol Tartrate (Lopressor) 25 mg PO ONE STA Stop: 03/28/19 14:30 Miscellaneous (Carbohydrates For Hypoglycemia) 15 - 30 gm PO UD PRN PRN Reason: Hypoglycemia Treatment Stop: 04/26/19 09:37 (1) Pulmonary edema Chronicity: acute Qualified Code(s): J81.0 - Acute pulmonary edema (2) Cardiomyopathy Cardiomyopathy type: other Qualified Code(s): I42.8 - Other cardiomyopathies
[2019-03-28] MEDS: ATORVASTATIN 10 MG TAB PO SCH (14:54)
--- NOTE | 2019-03-28 19:48 | Hospitalist Progress Note ---
Date of Service March 28, 2019 Subjective Patient complaint of transient bilateral visual disturbances around 7 PM. SBP transiently in the 90s. CT head: 1. No acute intracranial abnormality. 2. 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 Serum creatinine 1.4 AP Transient visual disturbance likely secondary to transient hypotension secondary to ARF, mild hypovolemia Decrease maintenance beta-felicia dose for now. IV albumin 1 dose given pulmonary congestion on admission/systolic dysfunction. Hold daily Lasix for now. Appropriate to hold DIANA inhibitor until creatinine within normal limits. Follow renal function Will relay to AM provider. Results & Data Vital Signs (Past 12 Hours) Vital Signs Temp Pulse Pulse Resp BP Pulse Ox 03/28/19 19:04 36.8 C 73 18 94/50 L 96 03/28/19 18:00 82 20 98/58 L 94 03/28/19 17:00 89 20 99/52 L 93 03/28/19 16:15 89 20 106/66 93 03/28/19 16:00 94 H 03/28/19 15:15 92 H 20 102/59 L 94 03/28/19 14:45 86 18 105/65 93 03/28/19 14:20 82 16 102/67 93 03/28/19 14:05 87 20 106/70 93 03/28/19 13:50 85 18 109/68 94 03/28/19 13:35 36.6 C 88 18 137/48 L 93 03/28/19 08:00 77
--- NOTE | 2019-03-28 20:15 | CT Scan Report ---
CT head/brain wo con CLINICAL HISTORY: 73 years-old Female presenting with sudden onset vision disturbances, transient vis ual abnormality. TECHNIQUE: Multidetector CT imaging of the head was performed without the use of intravenous contrast . IV contrast: None. One or more dose lowering techniques were used consistent with the principles of ALARA (as low as reasonably achievable), including automatic exposure control, mA or kV adjustment t o individual patient size, and/or use of iterative reconstruction. COMPARISON: None. CT DOSE (mGy.cm): The estimated cumulative dose is 537.48 mGy.cm. FINDINGS: Pathology Manager topogram: Unremarkable. Ventricles and sulci normal in size. No hemorrhage. 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 No acute territorial infarct. No mass effect or midline shift. No extra-axial fluid collection. Paranasal sinuses and mastoid air cells clear. Calvarium intact. IMPRESSION: 1. No acute intracranial abnormality. 2. 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 Electronically signed by: Giogrio Hall M.D. 03/28/2019 8:12 PM
[2019-03-28 20:22] LABS: BUN Creatinine Ratio 24.5 (10-20); Calcium 9.5 mg/dl (8.5-10.1); Creatinine Clr Calc Pharmacy 37.4 ml/min; Est GFR (African American) 40.2; Est GFR (Non-African American) 34.7; Magnesium 2.2 mg/dl (1.8-2.4)
[2019-03-28] MEDS: ALBUMIN 25% 50 ML IV ONE ×2 (21:06→21:08)
[2019-03-28] MEDS ORDERED: Nursing to Pharmacy Communication ONE (21:30)
[2019-03-28] MEDS ORDERED: METOPROLOL TARTRATE 25 MG TAB PO SCH (22:00)
[2019-03-29 00:11] LABS: Appearance Urine Clear (Clear); Bacteria Urine Automated Negative (Negative); Bilirubin Urine Negative (Negative); Blood Urine Negative (Negative); Color Urine Yellow; Epithelial Cell Urine Auto >30 /lpf (0-5); Glucose Urine UA Negative (Negative); Ketones Urine Trace (Negative); Leukocyte Esterase Urine 2+ (Negative); Nitrite Urine Negative (Negative); Protein Urine Negative (Negative); RBC Urine Automated 0-4 /hpf (0-4); Specific Gravity Urine 1.041 (1.000-1.030); Urobilinogen Urine Negative (Negative)
[2019-03-29 05:28] LABS: Basophils # (auto) 0.01 K/uL (0-0.2); Basophils % (auto) 0.1 %; Eosinophils # (auto) 0.06 K/uL (0-0.5); Eosinophils % (auto) 0.6 %; Hematocrit (blood only) 39.2 % (37-47); Hemoglobin 13.2 g/dL (12.0-16.0); Immature Granulocytes # (auto) 0.01 K/uL (0.00-0.02); Immature Granulocytes % (auto) 0.1 %; Lymphocytes # (auto) 2.13 K/uL (1.2-3.4); Lymphocytes % (auto) 20.5 %; Mean Corpuscular Hemoglobin 29.9 pg (25-34); Mean Corpuscular Hgb Conc 33.7 g/dL (32-36); Mean Corpuscular Volume 88.7 fL (80-100); Mean Platelet Volume 9.8 fL (7.4-10.4); Monocytes # (auto) 0.91 K/uL (0.11-0.59); Monocytes % (auto) 8.7 %; Neutrophils # (auto) 7.29 K/uL (1.4-6.5); Platelet Count 217 K/uL (130-400); RDW Coefficient of Variation 14.2 % (11.5-14.5); RDW Standard Deviation 46.5 fL (36.4-46.3); Red Blood Count 4.42 M/uL (4.2-5.4); White Blood Count 10.41 K/uL (4.8-10.8)
[2019-03-29 05:55] LABS: BUN Creatinine Ratio 42.7 (10-20); Calcium 8.8 mg/dl (8.5-10.1); Creatinine Clr Calc Pharmacy 55.4 ml/min; Est GFR (African American) 65.2; Est GFR (Non-African American) 56.2; Magnesium 2.3 mg/dl (1.8-2.4); Potassium 3.5 mmol/L (3.5-5.1)
[2019-03-29] MEDS ORDERED: METOPROLOL TARTRATE 25 MG TAB PO SCH ×2 (06:00→14:00)
[2019-03-29] MEDS: LEVOTHYROXINE SODIUM 125 MCG TABLET PO SCH (06:15)
[2019-03-29] MEDS: ASPIRIN 81 MG ECTAB PO SCH (07:55)
[2019-03-29] MEDS: ATORVASTATIN 10 MG TAB PO SCH (07:55)
[2019-03-29] MEDS: INSULIN GLARGINE SOLOSTAR 100 UNITS/ML 3 ML PEN SQ SCH (07:55)
[2019-03-29] MEDS: INSULIN ASPART 100 UNITS/ML 3 ML PEN SC SCH ×4 (07:56→20:54)
[2019-03-29] MEDS ORDERED: LISINOPRIL 5 MG TAB PO SCH (09:00)
--- NOTE | 2019-03-29 09:47 | Cardiology Progress Note ---
Date of Service March 29, 2019 Assessment & Plan (1) Acute systolic CHF (congestive heart failure), NYHA class 4: (2) Elevated troponin I level: (3) Cardiomyopathy: (4) LBBB (left bundle branch block): (5) Papillary thyroid carcinoma: (6) CAD (coronary artery disease), [place] coronary artery: Cardiac catheterization performed 03/28/2019 demonstrated moderate nonobstructive CAD involving the ostium of the diagonal branch vessel. Medical management recommended. Transient visual disturbance reported last evening in the setting of hypotension. Lisinopril placed on hold metoprolol dose reduced. Recommend increasing metoprolol back to 25 mg 3 times daily and restarting lisinopril 5 mg daily. Continue to observe patient on telemetry. Hold diuretic therapy today. Add Aldactone in a.m. as blood pressure allows. Repeat basic metabolic panel tomorrow. The natural history and pathophysiology of nonischemic cardia myopathy discussed with patient and her at length. Potential need for defibrillator implantation discussed as well as possible use of LifeVest in the interim. Patient would like to pursue LifeVest at this time. Orders placed. Plan for discharge in the next 24 to 48 hours pending clinical course. Subjective Patient seen and examined at the bedside. Feeling well this morning. Denies chest pain or unusual shortness of breath. No palpitations, lightheadedness or dizziness. Transient visual disturbance reported last evening. Hypotension noted at that time and lisinopril placed on hold. Metoprolol reduced to 12.5 mg 3 times daily. Blood pressure trending upward this morning. Pulse rate elev ated as well. present at bedside. He offers no additional concerns/complaints at this time. Review of Systems Review of Systems: All systems reviewed & are unremarkable except as noted in HPI & below Physical Exam Physical Exam: General: NAD, AAO x3, well nourished. HEENT: Normocephalic. Atraumatic. Conjunctiva pink, no scleral icterus. Neck: No carotid bruits, the carotid upstrokes are brisk. No JVD. No HJR Heart: Regular, borderline tachycardic, normal S-1 and S-2 no S-3 or S-4 gallop. No murmurs or rub appreciated. PMI is not displaced. No RV heave. Lungs: Clear bilateral without rales , rhonchi, or wheeze. Abdomen: Normal bowel sounds. Soft. Nontender. No masses or organomegaly. No abdominal bruits. Extremities: No clubbing, cyanosis, or edema. Pulses: radial=2/4, Dorsalis pedis =2/4, posterior tibial=2/4. Neuro: Cranial nerves grossly intact. No focal motor deficit. Results & Data Vital Signs (Past 12 Hours) Vital Signs Temp Pulse Pulse Resp BP Pulse Ox 03/29/19 08:00 75 03/29/19 07:54 137/76 03/29/19 07:10 36.5 C 74 16 105/62 95 03/29/19 05:55 75 110/58 L 03/29/19 03:30 36.9 C 75 18 109/64 95 03/28/19 23:41 36.6 C 80 19 110/52 L 94 (1) Cardiomyopathy Cardiomyopathy type: other Qualified Code(s): I42.8 - Other cardiomyopathies
[2019-03-29] MEDS: LISINOPRIL 5 MG TAB PO SCH (10:01)
--- NOTE | 2019-03-29 15:40 | Hospitalist Progress Note ---
Date of Service March 29, 2019 Assessment & Plan (1) Cardiomyopathy: Cardiomyopathy, New Diagnosis Echo-left ventricular systolic function is severely reduced, EF 25 to 30%, mild concentric left medical hypertrophy, septal motion consistent with conduction abnormality, trace inferior septum is akinetic to dyskinetic, the base and mid inferior wall is severely hypokinetic to akinetic, otherwise moderate diffuse hypokinesis, left atrium is mildly dilated aortic valve sclerosis mild without significant stenosis,, mild mitral regurgitation and trivial loculated anterior pleural effusion Status post cardiac cath: Beats show 60% ostial diagonal #1, large vessel, mildly calcified obstruction, otherwise mild nonobstructive CAD Lasix started, hold for now given hypotension overnight Metoprolol 25mg TID, Lisinopril 5mg daily resumed monitor Lifevest ordered to be placed before discharge Pulmonary edema secondary to Acute Systolic CHF resolved Hypothyroidism continue levothyroxine TSH WNL ff up as outpatient HLD (hyperlipidemia) continue statin obtain fasting lipid profile Papillary thyroid carcinoma s/p FNA 03/18 pathology consistent with papillary thyroid ca follows ENT Dr. Ragland DVT prophylaxis SCDs Heparin held for Cardiac cath Follow up: PCP Bekah De Jesus PA-C upon discharge Disposition anticipate d/c home with home health services when medically stable Subjective ff up for cardiomyopathy, new diagnosis seen sitting up in bed, comfortable states she feels improved compared to admission denies shortness of breath, chest pain had an episode of blurred vision overnight- lasted a few seconds, systolic bp 90s, no recurrence denies other symptoms Review of Systems 2 Review of Systems: All systems reviewed & are unremarkable except as noted in HPI & below Physical Exam Physical Exam: General- oriented x 3, not in distress, speaks in sentences with no effort or accessory muscle use Head- atraumatic Eyes- PERRL, EOMI, anicteric ENT- oropharynx clear Neck- supple, no JVD, no adenopathy, no thyromegaly; carotids +2/2, no bruits appreciated Lungs- clear to auscultation bilaterally, no rales/wheezes Heart- normal rate, regular rhythm; no murmur, no gallop, no rub appreciated Abdomen- normal bowel sounds, nondistended, soft, nontender, no masses or hepatosplenomegaly Extremities- no pretibial edema, no calf tenderness; peripheral pulses intact Neuro- alert, oriented x 3; CN 2-12 grossly intact; motor 5/5 bilaterally;sensation 100% on all extremities; no other gross focal neurologic deficits Skin- warm & dry Results & Data Vital Signs (Past 12 Hours) Vital Signs Temp Pulse Pulse Resp BP Pulse Ox 03/29/19 15:25 36.4 C L 56 L 20 91/54 L 97 03/29/19 13:35 104/59 L 03/29/19 11:30 36.5 C 76 16 95 03/29/19 10:03 128/65 03/29/19 08:00 75 03/29/19 07:54 137/76 03/29/19 07:10 36.5 C 74 16 105/62 95 03/29/19 05:55 75 110/58 L Laboratory Results Laboratory Results - last 24 hr 03/28/19 03/28/19 03/28/19 16:26 19:55 19:56 WBC RBC Hgb Hct MCV MCH MCHC RDW Std Deviation RDW Coeff of Eduard Plt Count MPV Immature Gran % (Auto) Neut % (Auto) Lymph % (Auto) [place] % (Auto) Eos % (Auto) Baso % (Auto) Immature Gran # (Auto) Neut # (Auto) Lymph # (Auto) [place] # (Auto) Eos # (Auto) Baso # (Auto) Sodium 140 Potassium 4.0 Chloride 102 Carbon Dioxide 29 Anion Gap 9.0 BUN 37 H Creatinine 1.49 H D Est Cr Clr Drug Dosing 37.4 Est GFR ( Amer) 40.2 Est GFR (Non-Af Amer) 34.7 BUN/Creatinine Ratio 24.5 H Glucose 127 H POC Glucose 155 H Lactate 1.9 Calcium 9.5 Magnesium 2.2 Urine Color Urine Appearance Urine pH Ur Specific [place] Urine Protein Urine Glucose (UA) Urine Ketones Urine Blood Urine Nitrite Urine Bilirubin Urine Urobilinogen Ur Leukocyte Esterase Urine WBC (Auto) Urine RBC (Auto) U Hyaline Cast (Auto) U Epithel Cells (Auto) Urine Bacteria (Auto) 03/28/19 03/28/19 03/29/19 20:18 23:45 05:13 WBC 10.41 RBC 4.42 Hgb 13.2 Hct 39.2 MCV 88.7 MCH 29.9 MCHC 33.7 RDW Std Deviation 46.5 H RDW Coeff of Eduard 14.2 Plt Count 217 MPV 9.8 Immature Gran % (Auto) 0.1 Neut % (Auto) 70.0 Lymph % (Auto) 20.5 [place] % (Auto) 8.7 Eos % (Auto) 0.6 Baso % (Auto) 0.1 Immature Gran # (Auto) 0.01 Neut # (Auto) 7.29 H Lymph # (Auto) 2.13 [place] # (Auto) 0.91 H Eos # (Auto) 0.06 Baso # (Auto) 0.01 Sodium Potassium Chloride Carbon Dioxide Anion Gap BUN Creatinine Est Cr Clr Drug Dosing Est GFR ( Amer) Est GFR (Non-Af Amer) BUN/Creatinine Ratio Glucose POC Glucose 136 H Lactate Calcium Magnesium Urine Color Yellow Urine Appearance Clear Urine pH 5.0 Ur Specific [place] 1.041 H Urine Protein Negative Urine Glucose (UA) Negative Urine Ketones Trace H Urine Blood Negative Urine Nitrite Negative Urine Bilirubin Negative Urine Urobilinogen Negative Ur Leukocyte Esterase 2+ H Urine WBC (Auto) 5-10 H Urine RBC (Auto) 0-4 U Hyaline Cast (Auto) 5-10 H U Epithel Cells (Auto) >30 H Urine Bacteria (Auto) Negative 03/29/19 03/29/19 03/29/19 05:13 07:33 11:36 WBC RBC Hgb Hct MCV MCH MCHC RDW Std Deviation RDW Coeff of Eduard Plt Count MPV Immature Gran % (Auto) Neut % (Auto) Lymph % (Auto) [place] % (Auto) Eos % (Auto) Baso % (Auto) Immature Gran # (Auto) Neut # (Auto) Lymph # (Auto) [place] # (Auto) Eos # (Auto) Baso # (Auto) Sodium 141 Potassium 3.5 Chloride 105 Carbon Dioxide 30 Anion Gap 6.0 BUN 43 H Creatinine 1.00 D Est Cr Clr Drug Dosing 55.4 Est GFR ( Amer) 65.2 Est GFR (Non-Af Amer) 56.2 BUN/Creatinine Ratio 42.7 H Glucose 116 H POC Glucose 119 H 107 H Lactate Calcium 8.8 Magnesium 2.3 Urine Color Urine Appearance Urine pH Ur Specific [place] Urine Protein Urine Glucose (UA) Urine Ketones Urine Blood Urine Nitrite Urine Bilirubin Urine Urobilinogen Ur Leukocyte Esterase Urine WBC (Auto) Urine RBC (Auto) U Hyaline Cast (Auto) U Epithel Cells (Auto) Urine Bacteria (Auto) (1) Cardiomyopathy Cardiomyopathy type: other Qualified Code(s): I42.8 - Other cardiomyopathies
[2019-03-29] MEDS: METOPROLOL SUCC 25MG EXT REL TAB PO SCH (21:01)
[2019-03-30] MEDS ORDERED: METFORMIN HCL 500 MG TAB PO SCH
[2019-03-30] MEDS ORDERED: LISINOPRIL 5 MG TAB PO SCH
[2019-03-30] MEDS ORDERED: METOPROLOL SUCC 25MG EXT REL TAB PO SCH
[2019-03-30] MEDS: LEVOTHYROXINE SODIUM 125 MCG TABLET PO SCH (06:12)
[2019-03-30] MEDS: INSULIN ASPART 100 UNITS/ML 3 ML PEN SC SCH ×2 (08:04→12:04)
[2019-03-30] MEDS: ATORVASTATIN 10 MG TAB PO SCH (08:05)
[2019-03-30] MEDS: ASPIRIN 81 MG ECTAB PO SCH (08:05)
[2019-03-30] MEDS: LISINOPRIL 5 MG TAB PO SCH (08:05)
[2019-03-30] MEDS: INSULIN GLARGINE SOLOSTAR 100 UNITS/ML 3 ML PEN SQ SCH (08:05)
[2019-03-30] MEDS: METOPROLOL SUCC 25MG EXT REL TAB PO SCH (08:05)
--- NOTE | 2019-03-30 09:57 | Cardiology Progress Note ---
Date of Service March 30, 2019 Assessment & Plan (1) Acute systolic CHF (congestive heart failure), NYHA class 4: New onset congestive heart failure diagnostic evaluation reflecting nonischemic cardiomyopathy Patient clinically improved Plan discharge patient on appropriate medical regimen including CHF indicated beta-felicia with Toprol-XL 25 mg p.o. twice daily, DIANA inhibitor with lisinopril 5 mg p.o. daily, spironolactone 12.5 mill grams p.o. daily CHF instructions given LifeVest instructions and arrangements made Plan follow-up in short interval with [facility] cardiology (2) Elevated troponin I level: (3) Cardiomyopathy: Nonischemic origin with moderately severe LV dysfunction and new onset heart failure (4) LBBB (left bundle branch block): Discussed with patient (5) Papillary thyroid carcinoma: (6) CAD (coronary artery disease), [place] coronary artery: Cardiac catheterization performed 03/28/2019 demonstrated moderate nonobstructive CAD involving the ostium of the diagonal branch vessel. Medical management recommended. Will warrant increase in dose statin as clinical course proceeds Subjective Patient seen and examined, chart, medications, telemetry reviewed. No problems or issues overnight. No arrhythmias on telemetry. No chest pains or shortness of breath. Ambulatory in room and hallway yesterday without difficulties. Heart rate and blood pressures are appropriate Physical Exam Constitutional: WD/WN, vitals as above Eyes: PERRL, conjunctivae normal, anicteric sclerae Neck: trachea midline, no thyromegaly Respiratory: normal respiratory effort, lungs clear to auscultation Cardiovascular: Rate/Rhythm: regular rate and regular rhythm Heart Sounds: normal S1 and normal S2; no gallop, no murmur and no cardiac rub Vessels: no JVD Extremities: no edema Gastrointestinal (Abdomen): normal bowel sounds, soft, nontender, no hepatosplenomegaly Musculoskeletal: no cyanosis or clubbing, extremities motor strength 5/5 Results & Data Vital Signs (Past 12 Hours) Vital Signs Temp Pulse Resp BP Pulse Ox 03/30/19 07:05 36.8 C 57 L 17 121/71 95 03/30/19 04:41 36.6 C 73 19 119/72 97 03/29/19 23:22 36.7 C 70 18 113/63 95 Laboratory Results Laboratory Results - last 24 hr 03/29/19 03/29/19 03/29/19 11:36 16:31 20:09 POC Glucose 107 H 116 H 127 H 03/30/19 07:39 POC Glucose 118 H (1) Cardiomyopathy Cardiomyopathy type: other Qualified Code(s): I42.8 - Other cardiomyopathies
[2019-03-30] MEDS ORDERED: SPIRONOLACTONE 25 MG TAB PO SCH ×2 (10:00)
--- NOTE | 2019-03-30 12:31 | Hospitalist Progress Note ---
Date of Service delayed entry date of service noted below March 30, 2019 Assessment & Plan (1) Cardiomyopathy: Cardiomyopathy, New Diagnosis Echo-left ventricular systolic function is severely reduced, EF 25 to 30%, mild concentric left medical hypertrophy, septal motion consistent with conduction abnormality, trace inferior septum is akinetic to dyskinetic, the base and mid inferior wall is severely hypokinetic to akinetic, otherwise moderate diffuse hypokinesis, left atrium is mildly dilated aortic valve sclerosis mild without significant stenosis,, mild mitral regurgitation and trivial loculated anterior pleural effusion Status post cardiac cath: 60% ostial diagonal #1, large vessel, mildly calcified obstruction, otherwise mild nonobstructive CAD Extra Hand consulted- Dr. Kaylene Martinez, metoprolol, lisinopril ordered-titrated LifeVest instructions and arrangements made Discharge recommendations: Metoprolol XL 25 mg p.o. twice daily, lisinopril 5 mg p.o. daily, spine 1112.5 mg p.o. daily Follow-up with software test technician in 1 week Pulmonary edema secondary to Acute Systolic CHF resolved Hypothyroidism continue levothyroxine TSH WNL ff up as outpatient HLD (hyperlipidemia) continue statin Papillary thyroid carcinoma s/p FNA 03/18 pathology consistent with papillary thyroid ca follows ENT Dr. Ragland Disposition Discharge to home with services Follow-up with primary care physician in 1 week Follow-up with software test technician in 1 week Subjective Follow-up for cardiomyopathy Seen resting in bed, comfortable, no distress, in good spirits States she feels much better overall Denies chest pain, shortness of breath, palpitations, dizziness, nausea or vomiting Ambulating with no problems States she is ready would like to be discharged Review of Systems Review of Systems: All systems reviewed & are unremarkable except as noted in HPI & below Physical Exam Physical Exam: General- oriented x 3, not in distress, speaks in sentences with no effort or accessory muscle use Eyes- anicteric Neck- no JVD Lungs- clear breath sounds, no crackles no wheezing bilaterally Heart- normal rate, regular rhythm; no murmurs Abdomen- normal bowel sounds, nondistended, soft, nontender Extremities- no pretibial edema, no calf tenderness Neuro- alert, oriented x 3; no gross focal neurologic deficits Skin- warm & dry Results & Data Vital Signs (Past 12 Hours) Vital Signs Temp Pulse Pulse Resp BP Pulse Ox 03/30/19 11:20 36.6 C 65 16 104/60 03/30/19 08:00 67 03/30/19 07:05 36.8 C 57 L 17 121/71 95 03/30/19 04:41 36.6 C 73 19 119/72 97 Laboratory Results All noted and reviewed (1) Cardiomyopathy Cardiomyopathy type: other Qualified Code(s): I42.8 - Other cardiomyopathies
[2019-03-31] MEDS ORDERED: SPIRONOLACTONE 25 MG TAB PO SCH (09:00)
[2019-03-31] MEDS ORDERED: METFORMIN HCL 500 MG TAB PO SCH (09:00)
--- NOTE | 2019-04-02 08:15 | Discharge Summary ---
Date of Service April 02, 2019 Admission HPI Per Admitting Provider This is a 73-year-old female who has a known past medical history of hypothyroidism, hyperlipidemia who presents to [facility] secondary to shortness breath and chest tightness that started at 11 PM last evening. and brother at bedside. Patient was lying down when she got an abrupt onset of chest tightness and shortness of breath. Not relieved with position or movement. Complains of overall chest congestion, productive cough with purulent sputum, shortness of breath at rest, SMALL, "rattling in chest." States she had similar sx a few weeks prior which resolved on own and taking dec ongestants. Denies tiffany chest pain. Denies recent illness, f/c/s, dizziness, lightheaded, hemoptysis, PND, orthopnea, n/v/d, abdominal pain, edema. Denies weight gain, but feels weight fluctuates. Recently had pizza and ice cream, but usually cooks 3 meals a day, eats at home. Does use sea salt on most foods. Of significance pt last saw her PCP 03/05 when it was noted she had enlarged R thyroid gland. U/S was performed which revealed concerning nodule. She was referred to ENT and underwent FNA 03/18. Pathology reveals likely papillary thyroid carcinoma. She was to follow up with ENT today to go over results and obtain appt for surgical excision. Denies FH of CHF, CAD, CA. Mother is in her 90s and alive and well. Father 1 year ago due to dementia NS/ND. Lives with . Admission Exam Per Admitting Provider Constitutional: WD/WN, vitals as above, NAD, appears anxious, sitting up in bed, pleasant, conversing easily Head: Normocephalic, Atraumatic Eyes: PERRL, conjunctivae normal, anicteric sclerae ENMT: external ear and nose normal, oropharynx normal Neck: trachea midline, R thyromegaly, normal visual inspection Respiratory: normal respiratory effort, lungs clear to auscultation, no wheeze, rales, rhonchi. Normal insp/exp effort, no accessory muscle use Cardiovascular: tachycardic rate, regular rhythm, no murmur, trace pretibial edema Vessels: no JVD or carotid bruit Chest: normal inspection of chest Abdomen: normal bowel sounds, soft, nontender, no hepatosplenomegaly Musculoskeletal: no cyanosis or clubbing, extremities motor strength 5/5 Skin: no rashes, warm and dry normal turgor Neurologic: PERRL, EOMI, accommodation nl, no face palsy, no dysarthria CN's II-XI intact bilaterally and moves all extremities Psychiatric: A+Ox3, euthymic affect Lymphatic: no cervical or axillary lymphadenopathy : deferred Principal Diagnosis NEW ONSET CARDIOMYOPATHY Discharge Exam General- oriented x 3, not in distress, speaks in sentences with no effort or accessory muscle use Eyes- anicteric Neck- no JVD Lungs- clear breath sounds, no crackles no wheezing bilaterally Heart- normal rate, regular rhythm; no murmurs Abdomen- normal bowel sounds, nondistended, soft, nontender Extremities- no pretibial edema, no calf tenderness Neuro- alert, oriented x 3; no gross focal neurologic deficits Skin- warm & dry Discharge Data Allergies Allergy/AdvReac Type Severity Reaction Status Date / Time Iodinated Contrast- Oral and Allergy Intermediate sob/unsteady Verified 03/27/19 05:56 IV Dye gait codeine Allergy Mild nausea/vomi Verified 03/27/19 05:56 ting Consultations 03/27/19 06:36 ED Decision to Admit Stat 03/27/19 11:43 Consult Cardiology Routine 03/28/19 07:30 Consult Cardiac Catheterization Routine Procedures Performed Operation Date: 03/28/19 12:00 Actual Procedures p Cath, Left with Cors and Vent - Sp Maurice, DO s Cineradiography w/Routine Exam - Humberto Alexis MD s Fraction Flow Carpio SGL Ves(Not Applicable) - Humberto Alexis MD Ordered Studies 03/28/19 07:10 CL Cath Imgs for PACS use only Routine 03/28/19 19:42 CT head/brain wo con Urgent CT head/brain wo con CLINICAL HISTORY: 73 years-old Female presenting with sudden onset vision disturbances, transient visual abnormality. TECHNIQUE: Multidetector CT imaging of the head was performed without the use of intravenous contrast. IV contrast: None. One or more dose lowering techniques were used consistent with the principles of ALARA (as low as reasonably achievable), including automatic exposure control, mA or kV adjustment to individual patient size, and/or use of iterative reconstruction. COMPARISON: None. CT DOSE (mGy.cm): The estimated cumulative dose is 537.48 mGy.cm. FINDINGS: Human Geography Instructor topogram: Unremarkable. Ventricles and sulci normal in size. No hemorrhage. 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 No acute territorial infarct. No mass effect or midline shift. No extra-axial fluid collection. Paranasal sinuses and mastoid air cells clear. Calvarium intact. IMPRESSION: 1. No acute intracranial abnormality. 2. 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 Hospital Course (1) Cardiomyopathy: Cardiomyopathy, New Diagnosis Echo-left ventricular systolic function is severely reduced, EF 25 to 30%, mild concentric left medical hypertrophy, septal motion consistent with conduction abnormality, trace inferior septum is akinetic to dyskinetic, the base and mid inferior wall is severely hypokinetic to akinetic, otherwise moderate diffuse hypokinesis, left atrium is mildly dilated aortic valve sclerosis mild without significant stenosis,, mild mitral regurgitation and trivial loculated anterior pleural effusion Status post cardiac cath: 60% ostial diagonal #1, large vessel, mildly calcified obstruction, otherwise mild nonobstructive CAD Creamery Worker consulted- Dr. Kaylene Martinez, metoprolol, lisinopril ordered-titrated LifeVest instructions and arrangements made Discharge recommendations: Metoprolol XL 25 mg p.o. twice daily, lisinopril 5 mg p.o. daily, spine 1112.5 mg p.o. daily Follow-up with process checker in 1 week Pulmonary edema secondary to Acute Systolic CHF resolved Old Infarct, Right Temporal Lobe seen on CT head done on admission during an episode of visual disturbance in the setting of hypotension Aspirin started already on Atorvastatin further work up and follow up as outpatient Hypothyroidism continue levothyroxine TSH WNL ff up as outpatient HLD (hyperlipidemia) continue statin Papillary thyroid carcinoma s/p FNA 03/18 pathology consistent with papillary thyroid ca follows ENT Dr. Ragland Disposition Discharge to home with services Follow-up with primary care physician in 1 week Follow-up with process checker in 1 week Total Time Total Time Spent Total Time Spent (In Minutes): 45 minutes Discharge Plan Discharge Items Patient Disposition: Home - Self-Care Reason For Visit: CHF Discharge Diagnosis: CONGESTIVE HEART FAILURE Discharge Goals: Diagnostic testing and Therapeutic intervention Activity: As commented below Activity Comment: NO HEAVY EXERTION UNTIL RE-EVALUATED BY PRIMARY CARE PHYSICIAN Lifting: Wait until after follow-up appointment Exercise/Sports: Wait until after follow-up appointment Driving/Machine Use Comment: NO DRIVING UNTIL ALLOWED BY PRIMARY CARE PHYSICIAN AND SURGICAL GARMENT FITTER Non-emergency contact: Primary Care Provider Call non-emergency contact if: you have any medication questions, your symptoms worsen, your pain is not controlled, you have a fever, your wound has increased redness, your wound has increased drainage and your wound pain has increased Follow-up/Referrals: Sp Maurice DO [Creamery Worker] - Bekah De Jesus PA-C [Primary Care Provider] - Diet: Carb Consistent or DM2 and Heart Healthy Addtl Provider Instructions: PLEASE REVIEW YOUR NEW MEDICATION LIST AND FOLLOW INSTRUCTIONS CAREFULLY. CALL PRIMARY CARE PHYSICIAN OR RETURN TO THE ER IMMEDIATELY IF WITH RECURRENCE/WORSENING OF SYMPTOMS, SHORTNESS OF BREATH, LEG SWELLING. Call your Primary Care doctor if any of the following symptoms or problems start or get worse: Shortness of breath or difficulty breathing Wake up at night short of breath Chest pain Cough Swelling of your hands, feet, or legs More fatigued or tired with your normal activity Palpitations - sudden fast heart beats WEIGHT Weigh yourself every morning after using the bathroom. Use the same scale. Wear the same amount of clothing. Write your weight down on a chart. Call your Primary Care doctor if you gain more than 2-3 pounds in 1-2 days. MEDICATIONS Use this discharge instruction sheet for medication instructions. Take your medications at the time your doctor ordered. Do not skip a dose of your medicines. If you miss a dose of medicine, take it as soon as possible, but DO NOT DOUBLE A DOSE. Read your medicine information when you get home. Know all of the side effects of your medicine. If in doubt, ask your pharmacist Call your Primary Care doctor's office if you have any side effects. Be sure all of your doctors know what medicine and herbs you take (including cold, flu, and herbal medicine). Take the following with you to your follow-up doctor appointments: Weight Chart Medication List List of questions Do not drink excessive alcohol, beer or wine. Who to Call and When: Call 911 or go to the Emergency Room if: If at any time you feel your situation is an emergency You have tightness or pain in your chest that does not go away with rest or Nitroglycerin You are very short of breath even with rest PLEASE WRITE DOWN YOUR BLOOD SUGAR READING TWICE A DAY AND SHOW THE READINGS TO YOUR PRIMARY CARE PHYSICIAN ON FOLLOW UP. ALWAYS EAT 3 MEALS/DAY. DO NOT TAKE METFORMIN IF YOU ARE SKIPPING MEALS. DO NOT TAKE IBUPROFEN, NAPROXEN, ETC. ALWAYS TALK TO YOUR DOCTOR FIRST BEFORE STARTING ANY NEW MEDICATION. Prescriptions: New spironolactone 25 mg Tablet 12.5 mg PO DAILY 30 Days Qty: 15 RF: 2 lisinopril [Zestril] 5 mg Tablet 5 mg PO QAM 30 Days Qty: 30 RF: 2 metoprolol succinate 25 mg Tablet Extended Release 24 Hr 25 mg PO BID 30 Days Qty: 60 RF: 2 metformin [Glucophage] 500 mg Tablet 500 mg PO DAILY 30 Days Qty: 30 RF: 2 Continued levothyroxine [Synthroid] 125 mcg Tablet 125 mcg PO DAILY RF: 0 benzonatate 100 mg Capsule 100 mg PO TID PRN (Reason: Cough) RF: 0 atorvastatin 10 mg Tablet 10 mg PO HS RF: 0 aspirin 81 mg Tablet,Delayed Release (Dr/Ec) 81 mg PO DAILY RF: 0 Stand-Alone Forms: My [facility] StatSheet/Other Patient Handouts: Metformin Hydrochloride Oral tablet, Metoprolol Succinate Oral tablet extended-release, Lisinopril Oral tablet, Spironolactone Oral tablet, Heart Failure Meds Control, Heart Failure, Heart Failure Warning Signs, Heart Failure Tracking Weight, Diabetes Type 2 Coping, Diabetes Healthy Meals, Diabetes Carbs, Diabetes Exercise Benefits, Diabetes Exercise Get Started, Diabetes Activity Tips, Heart Failure Coping, Heart Failure Diet Changes, Diabetes Manage A1C Test Discharge Orders: Discharge Order (Routine); Ordered 03/30/19 Ordered By: Man Randle Admission Data Admit Date/Time: 03/27/19 08:03 Attending Provider: Man Randle Admit Provider: Thaddeus Santos Primary Care Provider: Bekah De Jesus Other Providers: Krzysztof Guan ; Sp Maurice ; Thaddeus Santos Service: Telemetry Other Interventions: Discharge Summary Assessment (RN) Last Done: 03/30/19 12:54 DC Date/Time DO NOT enter until pt leaves facility: 03/30/19 14:15
== END 2019-03-30 14:15 | disposition home or self-care (01) | DRG 286 ==
LOC: ED 05:18 → SUATTDRO 08:03 → 2S 08:03
DX: I24.8 Other forms of acute ischemic heart disease; I44.7 Left bundle-branch block, unspecified; Z91.041 Radiographic dye allergy status; I42.8 Other cardiomyopathies; I25.10 Atherosclerotic heart disease of native coronary artery without angina pectoris; E03.9 Hypothyroidism, unspecified; C73 Malignant neoplasm of thyroid gland; Z79.82 Long term (current) use of aspirin; R73.9 Hyperglycemia, unspecified; E78.5 Hyperlipidemia, unspecified; Z51.81 Encounter for therapeutic drug level monitoring; Z88.5 Allergy status to narcotic agent; I95.89 Other hypotension; H53.8 Other visual disturbances; Z86.73 Personal history of transient ischemic attack (TIA), and cerebral infarction without residual deficits; R09.02 Hypoxemia; Z79.899 Other long term (current) drug therapy; N17.9 Acute kidney failure, unspecified; I50.21 Acute systolic (congestive) heart failure

== ENCOUNTER 2019-05-01 10:49 | Inpatient (IN) ==
[2019-05-01] MEDS ORDERED: AMIODARONE / D5W 360 MG/200 ML BAG IV SCH ×2 (11:15→19:15)
[2019-05-01 11:24] LABS: Basophils # (auto) 0.01 K/uL (0-0.2); Basophils % (auto) 0.1 %; Eosinophils # (auto) 0.11 K/uL (0-0.5); Eosinophils % (auto) 1.3 %; Hematocrit (blood only) 40.4 % (37-47); Immature Granulocytes # (auto) 0.01 K/uL (0.00-0.02); Immature Granulocytes % (auto) 0.1 %; Lymphocytes # (auto) 1.83 K/uL (1.2-3.4); Lymphocytes % (auto) 21.7 %; Mean Corpuscular Hemoglobin 30.3 pg (25-34); Mean Corpuscular Hgb Conc 34.7 g/dL (32-36); Mean Corpuscular Volume 87.4 fL (80-100); Monocytes # (auto) 0.55 K/uL (0.11-0.59); Monocytes % (auto) 6.5 %; Neutrophils # (auto) 5.93 K/uL (1.4-6.5); Neutrophils % (auto) 70.3 %; Platelet Count 259 K/uL (130-400); RDW Coefficient of Variation 13.2 % (11.5-14.5); RDW Standard Deviation 42.2 fL (36.4-46.3); Red Blood Count 4.62 M/uL (4.2-5.4); White Blood Count 8.44 K/uL (4.8-10.8)
--- NOTE | 2019-05-01 11:25 | XRay Report ---
XR chest 1V portable CLINICAL HISTORY: 74 years-old Female presenting with weakness. TECHNIQUE: Portable upright AP view of the chest was obtained. COMPARISON: 03/27/2019. FINDINGS: Atherosclerosis of the aortic arch. Cardiac silhouette enlarged. Significantly decreased interlobular septal thickening in comparison to prior. No focal opacity. No large effusion or pneumothorax. [place] us structures normal. Upper abdomen normal. IMPRESSION: 1. Cardiomegaly with resolved congestive change. Electronically signed by: Giorgio Hall M.D. 05/01/2019 11:23 AM
[2019-05-01 11:37] LABS: Partial Thromboplastin Ratio 0.9; Partial Thromboplastin Time 24.5 Seconds (21.0-31.0); Prothrombin Time 10.4 Seconds (9.0-12.0)
[2019-05-01 11:45] LABS: Alanine Aminotransferase 37 U/L (12-78); Albumin Level 3.9 gm/dl (3.4-5.0); Aspartate Aminotransferase 23 U/L (15-37); BUN Creatinine Ratio 21.1 (10-20); Blood Urea Nitrogen 23 mg/dl (7-18); Calcium 9.4 mg/dl (8.5-10.1); Carbon Dioxide 29 mmol/L (21-32); Chloride 106 mmol/L (98-107); Creatinine Clr Calc Pharmacy 49.4 ml/min; Est GFR (African American) 57.1; Est GFR (Non-African American) 49.2; Glucose 188 mg/dl (70-99); Potassium 3.7 mmol/L (3.5-5.1); Sodium 144 mmol/L (136-145)
[2019-05-01 11:55] LABS: Albumin Globulin Ratio 1.3 (0.9-2); Alkaline Phosphatase 99 U/L (45-117); Bilirubin,Total 0.7 mg/dl (0.2-1); Creatine Kinase 100 U/L (26-192); Thyroid Stimulating Hormone 0.037 uIu/ml (0.300-4.500); Total Protein 6.9 gm/dl (6.4-8.2); Troponin I < 0.015 ng/ml (0-0.045)
[2019-05-01 12:09] LABS: T4 Free Thyroxine 1.89 ng/dl (0.8-1.6)
--- NOTE | 2019-05-01 13:16 | History & Physical Report ---
Date of Service May 01, 2019 Assessment & Plan (1) Nonischemic cardiomyopathy: Pt is 74 y/o F with PMH hypothyroidism, HLD, recently diagnosed papillary thyroid carcinoma, Nonischemic cardiomyopathy EF <20% presented to ER with complaint of alert/warning from LifeVest. Recently diagnosed with nonischemic cardiomyopathy. 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 Treated with medical management. Pt reports unaware of shock from LifeVest today, however ER staff report pt received one shock Recent echo: 04/18/19: EF <20%, grade 1 diastolic dysfunction, septal motion abnormal consistent with intraventricular conduction delay, remaining LV wall segments are severely hypokinetic. mild secondary mitral regurgitation is present. Initial vitals in ER with P: 131, R: 22, BP: 170/87. Vitals improved to P: 95, BP: 125/74 No leukocytosis. negative troponin, no significant electrolyte abnormality. TSH: 0.03 CXR: cardiomegaly Atrial fibrillation with rapid ventricular response Nonischemic cardiomyopathy -In ER started on amiodarone, Heparin drip -Pt asymptomatic -Appears euvolemic -Amiodarone and Heparin drip -Will continue atorvastatin, spironolactone, metoprolol, lisinopril -Plan to resume aspirin tomorrow. This was going to be on hold for 2 weeks prior to scheduled upcoming thryoidectomy procedure -Cardiology consult (2) Hypothyroidism: (3) Papillary thyroid carcinoma: TSH: 0.03. Free T4: 1.89 Pt to have thyroidectomy for papillary thyroid carcinoma in 05/16/19 at [facility] [place] -Continue levothyroxine (4) Hyperglycemia: A1c: 6.6 on 02/2019 -Hold home metformin -Novolog sliding scale per protocol DVT Prophylaxis -Heparin drip Full Code as per discussion with pt Follows with Bekah De Jesus PA-C for routine care Pt was seen and care coordinated with Dr Pierre. See addendum History of Present Illness Chief Complaint: Life vest alert Primary Care Provider: Bekah De Jesus PA-C Pt is 74 y/o F with PMH hypothyroidism, HLD, recently diagnosed papillary thyroid carcinoma, Nonischemic cardiomyopathy EF <20% presented to ER with complaint of alert/warning from LifeVest. Pt with hx hospitalization 03/27/19- 03/29/19 and was diagnosed with nonischemic cardiomyopathy. 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 Treated with medical management. Today pt states was out doing errands when she was alerted by her LifeVest to seek medical evaluation at hospital. Patient reports felt a tap "on her back" today and is unaware if she received shock from LifeVest. Reported by ER staff pt while being placed in room in ER she received shock from her LifeVest. Pt states feels at baseline without any symptoms. Denies CP, SOB, palpitations, tachycardia sensation, dizziness, syncope. Pt was scheduled to have thyroidectomy on 05/16/19 at [facility] [place] for papillary thyroid carcinoma. Pt was to start holding aspirin today secondary to upcoming procedure. Denies fever/chills, diaphoresis, N/V/D/C, AG, vision changes, neck pain, orthopnea, cough, sore throat, choking, otalgia, rhinorrhea, abdominal pain, paresthesias, weakness, extremity weakness, extremity edema, rashes, urinary symptoms. Had echo: 04/18/19: EF <20%, grade 1 diastolic dysfunction, septal motion abnormal consistent with intraventricular conduction delay, remaining LV wall segments are severely hypokinetic. mild secondary mitral regurgitation is present. Allergies Allergy/AdvReac Type Severity Reaction Status Date / Time Iodinated Contrast Media Allergy Intermediate sob/unsteady Verified 05/01/19 12:26 [Iodinated Contrast- Oral gait and IV Dye] codeine Allergy Mild nausea/vomi Verified 05/01/19 12:26 ting Home Medications Home Medications Medication Instructions Recorded Confirmed Type aspirin 81 mg PO DAILY 03/27/19 05/01/19 History levothyroxine [Synthroid] 125 mcg PO DAILY 03/27/19 05/01/19 History lisinopril [Zestril] 5 mg PO QAM 30 Days #30 tab 03/30/19 05/01/19 Rx metformin [Glucophage] 500 mg PO DAILY 30 Days #30 tab 03/30/19 05/01/19 Rx metoprolol succinate 25 mg PO BID 30 Days #60 tab 03/30/19 05/01/19 Rx spironolactone 12.5 mg PO DAILY 30 Days #15 tab 08/31/19 10/02/19 Rx atorvastatin 40 mg PO HS 05/01/19 05/01/19 History Past Med/Surg History Medical History Nonischemic cardiomyopathy (Chronic) HLD (hyperlipidemia) (Chronic) Hypothyroidism (Chronic) Papillary thyroid carcinoma (Chronic) Surgical History History of appendectomy (Chronic) History of salpingo-oophorectomy (Chronic) Family History Father Alzheimer disease Mother Alive and well Brother Alive and well Social History Preferred Language: [place] Communication Ability: Effective Chief Merchandising Officer Required: No Beliefs That Will Affect Care: None marital status: Current Living Situation: Spouse Other Information That Helps Us Care for You: No Feels Safe at Home: Yes Safety Concerns: Feels Safe At This Time Smoking Status: Never smoker Hx Alcohol Use: No Hx Substance Use: No Review of Systems Review of Systems: All systems reviewed & are unremarkable except as noted in HPI & below Physical Exam Physical Exam: General: no acute distress, WDWN Head: normocephalic, atraumatic Eyes: PERRL, EOM's intact, conjunctiva non-injected, anicteric ENT: normal inspection external ears, nose, mucous membranes moist Neck: supple, trachea midline Lungs: clear, no respiratory distress, no wheezing/rhonchi/rales CV: RRR, no murmur, no pretibial edema Abd: normal BS, soft, non-tender Ext: no cyanosis, no calf tenderness Neuro: A&O x 3, no focal deficits noted, mildly anxious affect Skin: warm, dry Results & Data Vital Signs (Past 12 Hours) Vital Signs Pulse Resp BP Pulse Ox 05/01/19 12:25 83 98 05/01/19 12:20 84 128/70 97 05/01/19 12:15 84 112/64 96 05/01/19 12:10 81 113/64 96 05/01/19 12:05 83 115/53 L 96 05/01/19 12:00 88 118/61 98 05/01/19 11:55 89 135/77 98 05/01/19 11:50 91 H 118/68 97 05/01/19 11:45 95 H 125/74 97 05/01/19 11:40 92 H 97 05/01/19 11:35 90 97 05/01/19 11:30 90 22 126/74 97 05/01/19 11:25 96 H 97 05/01/19 11:20 98 H 97 05/01/19 11:15 101 H 129/68 98 05/01/19 11:10 107 H 98 05/01/19 11:08 109 H 05/01/19 11:04 120 H 22 170/87 H 05/01/19 11:03 131 H Laboratory Results Short CBC 05/01/19 Range/Units 11:10 WBC 8.44 (4.8-10.8) K/uL Hgb 14.0 (12.0-16.0) g/dL Hct 40.4 (37-47) % Plt Count 259 (130-400) K/uL BMP 05/01/19 11:10 Sodium 144 Potassium 3.7 Chloride 106 Carbon Dioxide 29 BUN 23 H Creatinine 1.11 Glucose 188 H Calcium 9.4 Cardiac Enzymes 05/01/19 Range/Units 11:10 Total Creatine Kinase 100 (26-192) U/L Troponin I < 0.015 (0-0.045) ng/ml Liver Function 05/01/19 Range/Units 11:10 Total Bilirubin 0.7 (0.2-1) mg/dl AST 23 (15-37) U/L ALT 37 (12-78) U/L Alkaline Phosphatase 99 (45-117) U/L Albumin 3.9 (3.4-5.0) gm/dl Diagnostic Findings CXR: IMPRESSION: 1. Cardiomegaly with resolved congestive change. Code Status & VTE Plan VTE Prophylaxis Plan VTE Prophylaxis will be ordered: Yes Supervising Physician Co-Signing Physician Notes Patient is a 74-year-old female with nonobstructive cardiomyopathy, left bundle branch block and other problems presents for evaluation after having a LifeVest alert. Her last known EF is less than 20%. Patient denies any chest pain, shortness of breath, dizziness, nausea, diaphoresis, palpitations. Patient is found to be in A. fib RVR and currently converted to sinus while in ED. TSH is 0.037, free T4 is 1.89. Currently patient is being planned for thyroidectomy for papillary thyroid carcinoma. Please review HPI for complete details of presentation. On exam patient is moderately built and nourished, no apparent distress, normocephalic atraumatic, lungs are clear to auscultation, S1-S2, no murmur, abdomen soft nontender, no pedal edema, grossly no focal neurological deficits. A. fib RVR, converted to sinus after having cardioversion via LifeVest. Started on amiodarone, heparin drip while in ED. continue metoprolol. Appreciate cardiology input. May need to adjust levothyroxine dose. Monitor electrolytes. I personally reviewed the record. Patient is interviewed and examined at bedside. Patient's care is coordinated with Maite Odonnell. Please refer to the documentation above for details of patient's presentation and for discussion of other issues.
--- NOTE | 2019-05-01 14:34 | Cardiology Consultation ---
Date of Consultation May 01, 2019 Assessment & Plan (1) Atrial fibrillation with RVR: (2) Nonischemic cardiomyopathy: (3) LBBB (left bundle branch block): 74-year-old female presents with episode of asymptomatic very rapid atrial fibrillation status post external direct-current cardioversion via her LifeVest. Remains in sinus rhythm. IV amiodarone infusing. Continue beta-felicia therapy. IV heparin will be started at this time. [facility] discharge. Continue other evidence-based heart failure medications as previously ordered including beta-felicia therapy. Will obtain electrophysiology consultation for further input. Thank you for allowing me to participate in the care of your patient. History of Present Illness Reason for Consultation: Ventricular tachycardia, nonischemic cardiomyopathy Requesting Physician: Kandi Leal PA-C Attending Physician: Dr. Santos History of Present Illness 74-year-old female with history of nonischemic cardiomyopathy, left bundle branch block, and nonobstructive coronary disease presented to the emergency department due to alarming from her LifeVest. Patient arrived in the emergency department noted to be tachycardic with a heart rate of nearly 200 bpm. 12-lead ECG obtained demonstrating atrial fibrillation with rapid ventricular response and a left bundle branch block. Patient received 1 shock from her external defibrillator which converted her to sinus rhythm. Patient states the alarming began this morning at approximately 10:30 AM. She denies any palpitations, chest discomfort, shortness of breath, lightheaded, dizziness, syncope, or near syncope. No prior history of atrial fibrillation. She is scheduled for thyroidectomy due to papillary carcinoma of the thyroid. Surgery was scheduled for May 16 in [place]. Currently patient is resting comfortably in the emergency department. at bedside. Patient states functional capacity has been stable recently. She was evaluated by Dr. Jarquin on April 09. Repeat echocardiogram performed April 18, 2019 demonstrates severe left ventricular systolic dysfunction with an ejection fraction of less than 20%. Septal motion consistent with intraventricular conduction delay with remaining left ventricular myocardial wall segments demonstrating severe hypokinesis. Mild mitral regurgitation noted. Patient offers no complaints at this time. Allergies Allergy/AdvReac Type Severity Reaction Status Date / Time Iodinated Contrast Media Allergy Intermediate sob/unsteady Verified 05/01/19 12:26 [Iodinated Contrast- Oral gait and IV Dye] codeine Allergy Mild nausea/vomi Verified 05/01/19 12:26 ting Home Medications Home Medications Medication Instructions Recorded Confirmed Type aspirin 81 mg PO DAILY 03/27/19 05/01/19 History levothyroxine [Synthroid] 125 mcg PO DAILY 03/27/19 05/01/19 History lisinopril [Zestril] 5 mg PO QAM 30 Days #30 tab 03/30/19 05/01/19 Rx metformin [Glucophage] 500 mg PO DAILY 30 Days #30 tab 03/30/19 05/01/19 Rx metoprolol succinate 25 mg PO BID 30 Days #60 tab 03/30/19 05/01/19 Rx spironolactone 12.5 mg PO DAILY 30 Days #15 tab 03/30/19 05/01/19 Rx atorvastatin 40 mg PO HS 05/01/19 05/01/19 History Patient History Medical History Nonischemic cardiomyopathy (Chronic) HLD (hyperlipidemia) (Chronic) Hypothyroidism (Chronic) Papillary thyroid carcinoma (Chronic) Surgical History History of appendectomy (Chronic) History of salpingo-oophorectomy (Chronic) Family History Father Alzheimer disease Mother Alive and well Brother Alive and well Social History Preferred Language: Kazakh Communication Ability: Effective Pet Stylist Required: No Beliefs That Will Affect Care: None marital status: Current Living Situation: Spouse Other Information That Helps Us Care for You: No Feels Safe at Home: Yes Safety Concerns: Feels Safe At This Time Smoking Status: Never smoker Hx Alcohol Use: No Hx Substance Use: No Review of Systems Review of Systems: All systems reviewed & are unremarkable except as noted in HPI & below Physical Exam Physical Exam: General: NAD, AAO x3, well nourished. HEENT: Normocephalic. Atraumatic. Conjunctiva pink, no scleral icterus. Neck: No carotid bruits, the carotid upstrokes are brisk. No JVD. No HJR Heart: Regular normal S-1 and S-2 no S-3 or S-4 gallop. No murmurs or rub appreciated. PMI is not displaced. No RV heave. Lungs: Clear bilateral without rales , rhonchi, or wheeze. Abdomen: Normal bowel sounds. Soft. Nontender. No masses or organomegaly. No abdominal bruits. Extremities: No clubbing, cyanosis, or edema. Pulses: radial=2/4, Dorsalis pedis =2/4, posterior tibial=2/4. Neuro: Cranial nerves grossly intact. No focal motor deficit. Results & Data Vital Signs (Past 12 Hours) Vital Signs Pulse Pulse Resp BP BP Pulse Ox 05/01/19 14:22 63 17 125/58 L 98 05/01/19 13:21 71 19 130/59 L 98 05/01/19 12:25 83 98 05/01/19 12:20 84 128/70 97 05/01/19 12:15 84 112/64 96 05/01/19 12:10 81 113/64 96 05/01/19 12:05 83 115/53 L 96 05/01/19 12:00 88 118/61 98 05/01/19 11:55 89 135/77 98 05/01/19 11:50 91 H 118/68 97 05/01/19 11:45 95 H 125/74 97 05/01/19 11:40 92 H 97 05/01/19 11:35 90 97 05/01/19 11:30 90 22 126/74 97 05/01/19 11:25 96 H 97 05/01/19 11:20 98 H 97 05/01/19 11:15 101 H 129/68 98 05/01/19 11:10 107 H 98 05/01/19 11:08 109 H 05/01/19 11:04 120 H 22 170/87 H 05/01/19 11:03 131 H Laboratory Results Laboratory Results - last 24 hr 05/01/19 05/01/19 05/01/19 11:10 11:10 11:10 WBC 8.44 RBC 4.62 Hgb 14.0 Hct 40.4 MCV 87.4 MCH 30.3 MCHC 34.7 RDW Std Deviation 42.2 RDW Coeff of Eduard 13.2 Plt Count 259 MPV 10.0 Immature Gran % (Auto) 0.1 Neut % (Auto) 70.3 Lymph % (Auto) 21.7 [place] % (Auto) 6.5 Eos % (Auto) 1.3 Baso % (Auto) 0.1 Immature Gran # (Auto) 0.01 Neut # (Auto) 5.93 Lymph # (Auto) 1.83 [place] # (Auto) 0.55 Eos # (Auto) 0.11 Baso # (Auto) 0.01 PT 10.4 INR 1.0 APTT 24.5 PTT Ratio 0.9 Sodium 144 Potassium 3.7 Chloride 106 Carbon Dioxide 29 Anion Gap 9.0 BUN 23 H Creatinine 1.11 Est Cr Clr Drug Dosing 49.4 Est GFR ( Amer) 57.1 Est GFR (Non-Af Amer) 49.2 BUN/Creatinine Ratio 21.1 H Glucose 188 H Calcium 9.4 Magnesium 2.0 Total Bilirubin 0.7 AST 23 ALT 37 Alkaline Phosphatase 99 Total Creatine Kinase 100 Troponin I < 0.015 Total Protein 6.9 Albumin 3.9 Globulin 3.0 Albumin/Globulin Ratio 1.3 TSH 0.037 L Free T4 1.89 H
[2019-05-01] MEDS ORDERED: GLUCOSE 40% GEL 15 GM TUBE PO PRN (14:59)
[2019-05-01] MEDS ORDERED: GLUCOSE 10 TABS/TUBE PO PRN (14:59)
[2019-05-01] MEDS ORDERED: GLUCAGON FOR INJ 1 MG VIAL SQ PRN (14:59)
[2019-05-01] MEDS ORDERED: HEPARIN SOD 5,000 UNIT/0.5 ML VIAL SQ SCH (14:59)
[2019-05-01] MEDS ORDERED: DEXTROSE 50% 50 ML SYRINGE IV PRN (14:59)
[2019-05-01] MEDS ORDERED: AMIODARONE IV BOLUS / DRIP IV STA (14:59)
[2019-05-01] MEDS ORDERED: CARBOHYDRATES FOR HYPOGLYCEMIA PO PRN (14:59)
[2019-05-01] MEDS ORDERED: ACETAMINOPHEN 325 MG TAB PO PRN (14:59)
[2019-05-01] MEDS ORDERED: Nursing to Pharmacy Communication ONE (15:07)
[2019-05-01] MEDS ORDERED: HEPARIN IV BOLUS 6,000 UNITS in SYRINGE 0 ML IV ONE (15:30)
--- NOTE | 2019-05-01 15:30 | Emergency Department Note ---
Entered by Tremaine Montano acting as a scribe for Tristan Boone DO History of Present Illness General Chief complaint: Cardiac Assessment Stated complaint: HEART MONITOR IS ALERTING HER Time Seen by Provider: 05/01/19 10:59 Source: patient History of Present Illness Onset (ago): minute(s) (prior to arrival) Location: chest Pain Consistency: + other (episode) Maximum Pain Intensity: 0 Quality: + other (life vest alerting her ) Associated symptoms: + denies other symptoms The patient is a 74 year old female who presents to the Emergency Room with complaints of an episode of her life vest alerting her prior to arrival. The patient notes she was in the hospital from March 26-March 31 for cardiac arrest, which resulted in the patient obtaining a life vest. The patient states she was told her cardiac arrest was caused by a weak heart and possibly a virus or flu. The patient states she was not doing anything when the life vest started alerting her. The patient notes she typically sees Dr. Jarquin. The patient does not note any other symptoms. The patient reports of past high cholesterol and thyroid issues. Home Medications Home Medications Medication Instructions Recorded Confirmed Type aspirin 81 mg PO DAILY 03/27/19 05/01/19 History levothyroxine [Synthroid] 125 mcg PO DAILY 03/27/19 05/01/19 History lisinopril [Zestril] 5 mg PO QAM 30 Days #30 tab 03/30/19 05/01/19 Rx metformin [Glucophage] 500 mg PO DAILY 30 Days #30 tab 03/30/19 05/01/19 Rx metoprolol succinate 25 mg PO BID 30 Days #60 tab 03/30/19 05/01/19 Rx spironolactone 12.5 mg PO DAILY 30 Days #15 tab 03/30/19 05/01/19 Rx atorvastatin 40 mg PO HS 05/01/19 05/01/19 History Allergies Allergy/AdvReac Type Severity Reaction Status Date / Time Iodinated Contrast Media Allergy Intermediate sob/unsteady Verified 05/01/19 12:26 [Iodinated Contrast- Oral gait and IV Dye] codeine Allergy Mild nausea/vomi Verified 05/01/19 12:26 ting Past Med/Surg History Medical History Nonischemic cardiomyopathy (Chronic) HLD (hyperlipidemia) (Chronic) Hypothyroidism (Chronic) Papillary thyroid carcinoma (Chronic) Surgical History History of appendectomy (Chronic) History of salpingo-oophorectomy (Chronic) Family History Father Alzheimer disease Mother Alive and well Brother Alive and well Social History Preferred Language: Spanish Communication Ability: Effective Flame Hardener Required: No Beliefs That Will Affect Care: None marital status: Current Living Situation: Spouse Feels Safe at Home: Yes Smoking Status: Never smoker Hx Alcohol Use: No Hx Substance Use: No Review of Systems See HPI for pertinent positives & negatives. and A total of 10 systems reviewed and were otherwise negative Physical Exam Vital Signs Vital Signs - 24 hr 05/01/19 11:03 05/01/19 11:04 05/01/19 11:08 Sepsis Recent Fever Within 48 Hours No Sepsis New/Unexplained Change in Mental Status No Sepsis Action Taken by Nursing No Action Required Pulse Rate 131 H 120 H 109 H Pulse Rate from SpO2 Sensor Pulse Rhythm Regular Pulse Strength Normal Respiratory Rate 22 Respiratory Effort / Characteristics Non-Labored Respiratory Depth Normal Respiratory Pattern Regular Blood Pressure 170/87 H Blood Pressure Mean 114 Blood Pressure Position Sitting Pulse Oximetry Oxygen Delivery Method 05/01/19 11:10 05/01/19 11:15 05/01/19 11:20 Sepsis Recent Fever Within 48 Hours Sepsis New/Unexplained Change in Mental Status Sepsis Action Taken by Nursing Pulse Rate 107 H 101 H 98 H Pulse Rate from SpO2 Sensor 104 H 100 H 98 H Pulse Rhythm Pulse Strength Respiratory Rate Respiratory Effort / Characteristics Respiratory Depth Respiratory Pattern Blood Pressure 129/68 Blood Pressure Mean 88 Blood Pressure Position Pulse Oximetry 98 98 97 Oxygen Delivery Method 05/01/19 11:25 05/01/19 11:30 05/01/19 11:35 Sepsis Recent Fever Within 48 Hours Sepsis New/Unexplained Change in Mental Status Sepsis Action Taken by Nursing Pulse Rate 96 H 90 90 Pulse Rate from SpO2 Sensor 96 H 92 H 92 H Pulse Rhythm Pulse Strength Respiratory Rate 22 Respiratory Effort / Characteristics Respiratory Depth Respiratory Pattern Blood Pressure 126/74 Blood Pressure Mean 91 Blood Pressure Position Pulse Oximetry 97 97 97 Oxygen Delivery Method Room Air 05/01/19 11:40 05/01/19 11:45 05/01/19 11:50 Sepsis Recent Fever Within 48 Hours Sepsis New/Unexplained Change in Mental Status Sepsis Action Taken by Nursing Pulse Rate 92 H 95 H 91 H Pulse Rate from SpO2 Sensor 93 H 94 H 90 Pulse Rhythm Pulse Strength Respiratory Rate Respiratory Effort / Characteristics Respiratory Depth Respiratory Pattern Blood Pressure 125/74 118/68 Blood Pressure Mean 91 84 Blood Pressure Position Pulse Oximetry 97 97 97 Oxygen Delivery Method 05/01/19 11:55 05/01/19 12:00 05/01/19 12:05 Sepsis Recent Fever Within 48 Hours Sepsis New/Unexplained Change in Mental Status Sepsis Action Taken by Nursing Pulse Rate 89 88 83 Pulse Rate from SpO2 Sensor 90 90 84 Pulse Rhythm Pulse Strength Respiratory Rate Respiratory Effort / Characteristics Respiratory Depth Respiratory Pattern Blood Pressure 135/77 118/61 115/53 L Blood Pressure Mean 96 80 73 Blood Pressure Position Pulse Oximetry 98 98 96 Oxygen Delivery Method 05/01/19 12:10 05/01/19 12:15 05/01/19 12:20 Sepsis Recent Fever Within 48 Hours Sepsis New/Unexplained Change in Mental Status Sepsis Action Taken by Nursing Pulse Rate 81 84 84 Pulse Rate from SpO2 Sensor 81 84 83 Pulse Rhythm Pulse Strength Respiratory Rate Respiratory Effort / Characteristics Respiratory Depth Respiratory Pattern Blood Pressure 113/64 112/64 128/70 Blood Pressure Mean 80 80 89 Blood Pressure Position Pulse Oximetry 96 96 97 Oxygen Delivery Method 05/01/19 12:25 Sepsis Recent Fever Within 48 Hours Sepsis New/Unexplained Change in Mental Status Sepsis Action Taken by Nursing Pulse Rate 83 Pulse Rate from SpO2 Sensor 82 Pulse Rhythm Pulse Strength Respiratory Rate Respiratory Effort / Characteristics Respiratory Depth Respiratory Pattern Blood Pressure Blood Pressure Mean Blood Pressure Position Pulse Oximetry 98 Oxygen Delivery Method GENERAL: Patient is awake, alert, and very anxious appearing. EYES: The conjunctivae are clear. The pupils are round and reactive. EARS, NOSE, MOUTH AND THROAT: The nose is without any evidence of any deformity. Mucous membranes are moist.Tongue is midline NECK: The neck is nontender and supple. RESPIRATORY: Normal respiratory effort is noted. There is no evidence of wheezing rhonchi or rales to auscultation. CARDIOVASCULAR: Tachycardic rate and irregular rhythm noted. No definite murmur to auscultation. GASTROINTESTINAL: The abdomen is soft. Bowel sounds are present in all quadrants. Abdomen is nontender. MUSCULOSKELETAL/EXTREMITIES: There is no evidence of gross deformity. Full range of motion is noted in the hips and shoulders. SKIN: There is no obvious evidence of any rash. There are no petechiae, pallor or cyanosis noted. NEUROLOGIC: Patient is awake alert and oriented x3. Course 1100: Past medical records reviewed. The patient was evaluated in room B1. A complete history and physical exam was performed. 1107: I discussed the patient's case with Dr. BunnCardiology. 1153: I reevaluated and updated the patient. 1207: I reviewed the patient's case with Lizbet Gomez. Dr. Jade Gomez will evaluate the patient for further management. Consultations Consultation #1: I discussed the patient's case with Dr. BunnCardiology. Time: 11:07 Consultation #2: I reviewed the patient's case with Lizbet Gomez. Dr. Jade Gomez will evaluate the patient for further management. Time: 12:07 Administered Medications Amiodarone HCl/Dextrose (Nexterone / D5w) 360 mg in 200 mls @ 33.333 mls/hr IV .Q6H JORDAN Stop: 05/01/19 17:14 Last Admin: 05/01/19 11:22 Dose: 1 mg/min, 33.3 mls/hr Documented by: [id number] Cosigned by: [id number] Medical Decision Making Differential Diagnosis Differential diagnosis: Etiologies such as premature contractions, electrolyte abnormality, cardiac dysrhythmia, thyroid dysfunction, pulmonary embolism, infection, gastrointestinal, as well as others were entertained Medical Records Attestation: I reviewed the patient's medical records. Home Medications Current Medication List: was personally reviewed by me Laboratory Data Attestation: I reviewed the patient's lab results. Result diagrams: 05/01/19 11:10 05/01/19 11:10 Lab Results 05/01/19 05/01/19 05/01/19 Range/Units 11:10 11:10 11:10 WBC 8.44 (4.8-10.8) K/uL RBC 4.62 (4.2-5.4) M/uL Hgb 14.0 (12.0-16.0) g/dL Hct 40.4 (37-47) % MCV 87.4 (80-100) fL MCH 30.3 (25-34) pg MCHC 34.7 (32-36) g/dL RDW Std Deviation 42.2 (36.4-46.3) fL RDW Coeff of Eduard 13.2 (11.5-14.5) % Plt Count 259 (130-400) K/uL MPV 10.0 (7.4-10.4) fL Immature Gran % (Auto) 0.1 % Neut % (Auto) 70.3 % Lymph % (Auto) 21.7 % [place] % (Auto) 6.5 % Eos % (Auto) 1.3 % Baso % (Auto) 0.1 % Immature Gran # (Auto) 0.01 (0.00-0.02) K/uL Neut # (Auto) 5.93 (1.4-6.5) K/uL Lymph # (Auto) 1.83 (1.2-3.4) K/uL [place] # (Auto) 0.55 (0.11-0.59) K/uL Eos # (Auto) 0.11 (0-0.5) K/uL Baso # (Auto) 0.01 (0-0.2) K/uL PT 10.4 (9.0-12.0) Seconds INR 1.0 (0.9-1.1) APTT 24.5 (21.0-31.0) Seconds PTT Ratio 0.9 Sodium 144 (136-145) mmol/L Potassium 3.7 (3.5-5.1) mmol/L Chloride 106 (98-107) mmol/L Carbon Dioxide 29 (21-32) mmol/L Anion Gap 9.0 (3-11) BUN 23 H (7-18) mg/dl Creatinine 1.11 (0.6-1.2) mg/dl Est Cr Clr Drug Dosing 49.4 ml/min Est GFR ( Amer) 57.1 Est GFR (Non-Af Amer) 49.2 BUN/Creatinine Ratio 21.1 H (10-20) Glucose 188 H (70-99) mg/dl Calcium 9.4 (8.5-10.1) mg/dl Magnesium 2.0 (1.8-2.4) mg/dl Total Bilirubin 0.7 (0.2-1) mg/dl AST 23 (15-37) U/L ALT 37 (12-78) U/L Alkaline Phosphatase 99 (45-117) U/L Total Creatine Kinase 100 (26-192) U/L Troponin I < 0.015 (0-0.045) ng/ml Total Protein 6.9 (6.4-8.2) gm/dl Albumin 3.9 (3.4-5.0) gm/dl Globulin 3.0 (2.5-4.0) gm/dl Albumin/Globulin Ratio 1.3 (0.9-2) TSH 0.037 L (0.300-4.500) uIu/ml Free T4 1.89 H (0.8-1.6) ng/dl Imaging Data Radiologist's Impression: Radiology results as stated below per my review and the radiologist's interpretation: XR chest 1V portable CLINICAL HISTORY: 74 years-old Female presenting with weakness. TECHNIQUE: Portable upright AP view of the chest was obtained. COMPARISON: 03/27/2019. FINDINGS: Atherosclerosis of the aortic arch. Cardiac silhouette enlarged. Significantly decreased interlobular septal thickening in comparison to prior. No focal opacity. No large effusion or pneumothorax. Osseous structures normal. Upper abdomen normal. IMPRESSION: 1. Cardiomegaly with resolved congestive change. Electronically signed by: Giorgio Hall M.D. 05/01/2019 11:23 AM ECG Data Attestation: I personally reviewed and interpreted this ECG as follows: Indication: palpitations Rate (beats per minute): 195 (rate variability noted) Rhythm: other (wide complex tachycardia ) Findings: + other (likely represent V-tach versus A fib with aberrancy ) Comparison ECG Date: from (03/29/19) Change: the following changes noted (the findings are new ) Additional Comments: REPEAT EKG: Sinus tachycardia, rate of 102. LBBB, no PVC. No change from 03/29/19. Blood Pressure Blood Pressure Findings: Elevated blood pressure Blood Pressure Disposition: elevated BP felt to be situational MDM Narrative The patient is a 74-year-old female who presented to the emergency department for palpitations. The patient has a history of recently diagnosed dilated cardiomyopathy with a low ejection fraction. For this reason she was felt to be at high risk for wide-complex tachycardia. The patient was recently discharged to home and is currently wearing a LifeVest. The LifeVest prompted her to pre sent to the emergency department today and she presented with a wide-complex tachycardia. Her presentation appeared to be consistent with a stable wide- complex tachycardia as her blood pressure was acceptable. The patient continued to press the pause button on the LifeVest when it was prompted however while she was being evaluated she did receive 1 defibrillation from the LifeVest. She promptly went back into normal sinus rhythm. She stated normal sinus rhythm while she was in the emergency department. She was started on amiodarone. I discussed the patient's laboratory and radiographic studies with her. I discussed her case with the on-call [facility] green inspector group. I also discus sed her case with the on-call [facility] hospitalist. They have agreed to evaluate the patient in the emergency department for further management disposition. Impression & Plan Ventricular tachycardia, Palpitations Critical Care Time Critical Care Time: Yes Total Critical Care Time: 60 I have personally spent greater than 60 minutes of critical care time in the direct management of this patient. This includes bedside care, interpretation of diagnostic studies, and testing, discussion with consultants, patient, and family members, and other required patient management activities. This 60 minutes is in excess of all separately billable procedures. Discharge Plan Visit Data *Final* Discharge Date/Time: 05/01/19 14:22 Chief Complaint: Cardiac Assessment Stated Complaint: HEART MONITOR IS ALERTING HER ED Provider: Tristan Boone Discharge Problem: Ventricular tachycardia, Palpitations Patient Disposition: Admitted As Inpatient Discharge Instructions Interventions: ED Discharge Assessment Last Done: 05/01/19 14:22 The scribe's documentation has been prepared under my direction and personally reviewed by me in its entirety. I confirm that the note above accurately reflects all work, treatment, procedures, and medical decision making performed by me.
[2019-05-01] MEDS: HEPARIN SODIUM/DEXTROSE 25,000 UNITS/500 ML BAG IV SCH (15:54)
[2019-05-01] MEDS: AMIODARONE / D5W 360 MG/200 ML BAG IV SCH (17:04)
[2019-05-01] MEDS: INSULIN ASPART 100 UNITS/ML 3 ML PEN SC SCH ×2 (17:06→21:36)
[2019-05-01] MEDS ORDERED: INFLUENZA ADMINISTRATION CHARGE ONE (19:15)
[2019-05-01] MEDS ORDERED: INFLUENZA VACCINE HIGH DOSE 65+ 0.5 ML SYR IM ONE (19:15)
[2019-05-01] MEDS: METOPROLOL SUCC 25MG EXT REL TAB PO SCH (20:44)
[2019-05-01] MEDS ORDERED: ATORVASTATIN 40 MG TAB PO SCH (21:00)
[2019-05-01 22:01] LABS: Partial Thromboplastin Time 82.5 Seconds (21.0-31.0)
[2019-05-02 03:56] LABS: Appearance Urine Clear (Clear); Bacteria Urine Automated Negative (Negative); Bilirubin Urine Negative (Negative); Blood Urine Negative (Negative); Color Urine Yellow; Epithelial Cell Urine Auto >30 /lpf (0-5); Glucose Urine UA Negative (Negative); Ketones Urine Negative (Negative); Leukocyte Esterase Urine 1+ (Negative); Nitrite Urine Negative (Negative); Protein Urine Negative (Negative); RBC Urine Automated 0-4 /hpf (0-4); Specific Gravity Urine 1.019 (1.000-1.030); Urobilinogen Urine Negative (Negative)
[2019-05-02 04:51] LABS: Basophils # (auto) 0.01 K/uL (0-0.2); Basophils % (auto) 0.2 %; Eosinophils # (auto) 0.12 K/uL (0-0.5); Eosinophils % (auto) 2.1 %; Hematocrit (blood only) 34.7 % (37-47); Hemoglobin 12.1 g/dL (12.0-16.0); Immature Granulocytes # (auto) 0.02 K/uL (0.00-0.02); Immature Granulocytes % (auto) 0.3 %; Lymphocytes # (auto) 1.69 K/uL (1.2-3.4); Mean Corpuscular Hemoglobin 30.6 pg (25-34); Mean Corpuscular Hgb Conc 34.9 g/dL (32-36); Mean Corpuscular Volume 87.6 fL (80-100); Mean Platelet Volume 9.4 fL (7.4-10.4); Monocytes # (auto) 0.42 K/uL (0.11-0.59); Monocytes % (auto) 7.2 %; Neutrophils # (auto) 3.56 K/uL (1.4-6.5); Neutrophils % (auto) 61.2 %; Platelet Count 191 K/uL (130-400); RDW Coefficient of Variation 13.2 % (11.5-14.5); RDW Standard Deviation 42.7 fL (36.4-46.3); Red Blood Count 3.96 M/uL (4.2-5.4); White Blood Count 5.82 K/uL (4.8-10.8)
[2019-05-02 05:09] LABS: BUN Creatinine Ratio 19.4 (10-20); Calcium 8.5 mg/dl (8.5-10.1); Creatinine Clr Calc Pharmacy 60.3 ml/min; Est GFR (African American) 72.5; Est GFR (Non-African American) 62.6; Potassium 3.5 mmol/L (3.5-5.1)
[2019-05-02 05:12] LABS: Partial Thromboplastin Ratio 2.1
[2019-05-02] MEDS: AMIODARONE / D5W 360 MG/200 ML BAG IV SCH (05:13)
[2019-05-02] MEDS: LEVOTHYROXINE SODIUM 100 MCG TABLET PO SCH (05:15)
[2019-05-02 05:22] LABS: Partial Thromboplastin Time 57.7 Seconds (21.0-31.0)
[2019-05-02] MEDS ORDERED: LEVOTHYROXINE SODIUM 125 MCG TABLET PO SCH (06:30)
[2019-05-02] MEDS: INSULIN ASPART 100 UNITS/ML 3 ML PEN SC SCH ×4 (08:39→20:53)
[2019-05-02] MEDS: SPIRONOLACTONE 25 MG TAB PO SCH (09:23)
[2019-05-02] MEDS: ASPIRIN 81 MG ECTAB PO SCH (09:25)
[2019-05-02] MEDS: METOPROLOL SUCC 25MG EXT REL TAB PO SCH ×2 (09:26→20:53)
[2019-05-02] MEDS: ATORVASTATIN 40 MG TAB PO SCH (09:26)
[2019-05-02] MEDS: lisinopriL 5 MG TAB PO SCH (09:27)
--- NOTE | 2019-05-02 10:44 | Cardiology Progress Note ---
Date of Service May 02, 2019 Assessment & Plan (1) Atrial fibrillation with RVR: (2) Nonischemic cardiomyopathy: (3) LBBB (left bundle branch block): Discontinue intravenous amiodarone. Oral amiodarone, 200 mg twice daily ordered. Transition to Eliquis 5 mg twice daily beginning tonight. Eliquis may be held 3 to 5 days prior to upcoming thyroid surgery. LifeVest will be placed at time of discharge. Continue observation for additional 24 hours with tentative plans for discharge in a.m. 05/03/2019. Thank you for allowing to participate in the care of your patient. Subjective Patient seen and examined the bedside. No recurrent atrial fibrillation overnight. Tolerating intravenous amiodarone and heparin. No signs/symptoms of GI/ blood loss. Patient denies chest pain or unusual shortness of breath. No palpitations, lightheadedness, or dizziness. Offers no complaints at this time. Review of Systems Review of Systems: All systems reviewed & are unremarkable except as noted in HPI & below Physical Exam Physical Exam: General: NAD, AAO x3, well nourished. HEENT: Normocephalic. Atraumatic. Conjunctiva pink, no scleral icterus. Neck: No carotid bruits, the carotid upstrokes are brisk. No JVD. No HJR Heart: Regular normal S-1 and S-2 no S-3 or S-4 gallop. No murmurs or rub appreciated. PMI is not displaced. No RV heave. Lungs: Clear bilateral without rales , rhonchi, or wheeze. Abdomen: Normal bowel sounds. Soft. Nontender. No masses or organomegaly. No abdominal bruits. Extremities: No clubbing, cyanosis, or edema. Pulses: radial=2/4, Dorsalis pedis =2/4, posterior tibial=2/4. Neuro: Cranial nerves grossly intact. No focal motor deficit. Results & Data Vital Signs (Past 12 Hours) Vital Signs Temp Pulse Resp BP Pulse Ox 05/02/19 08:20 36.8 C 68 18 156/77 H 96 05/02/19 07:06 36.9 C 51 L 17 120/70 96 05/02/19 03:12 36.6 C 53 L 18 108/60 97 05/01/19 23:09 36.5 C 59 L 18 132/72 97 Laboratory Results Laboratory Results - last 24 hr 05/01/19 05/01/19 05/01/19 11:10 11:10 11:10 WBC 8.44 RBC 4.62 Hgb 14.0 Hct 40.4 MCV 87.4 MCH 30.3 MCHC 34.7 RDW Std Deviation 42.2 RDW Coeff of Eduard 13.2 Plt Count 259 MPV 10.0 Immature Gran % (Auto) 0.1 Neut % (Auto) 70.3 Lymph % (Auto) 21.7 [place] % (Auto) 6.5 Eos % (Auto) 1.3 Baso % (Auto) 0.1 Immature Gran # (Auto) 0.01 Neut # (Auto) 5.93 Lymph # (Auto) 1.83 [place] # (Auto) 0.55 Eos # (Auto) 0.11 Baso # (Auto) 0.01 PT 10.4 INR 1.0 APTT 24.5 PTT Ratio 0.9 Sodium 144 Potassium 3.7 Chloride 106 Carbon Dioxide 29 Anion Gap 9.0 BUN 23 H Creatinine 1.11 Est Cr Clr Drug Dosing 49.4 Est GFR ( Amer) 57.1 Est GFR (Non-Af Amer) 49.2 BUN/Creatinine Ratio 21.1 H Glucose 188 H POC Glucose Calcium 9.4 Magnesium 2.0 Total Bilirubin 0.7 AST 23 ALT 37 Alkaline Phosphatase 99 Total Creatine Kinase 100 Troponin I < 0.015 Total Protein 6.9 Albumin 3.9 Globulin 3.0 Albumin/Globulin Ratio 1.3 TSH 0.037 L Free T4 1.89 H Urine Color Urine Appearance Urine pH Ur Specific [place] Urine Protein Urine Glucose (UA) Urine Ketones Urine Blood Urine Nitrite Urine Bilirubin Urine Urobilinogen Ur Leukocyte Esterase Urine WBC (Auto) Urine RBC (Auto) U Hyaline Cast (Auto) U Epithel Cells (Auto) Urine Bacteria (Auto) Hepatitis C Ab Screen 05/01/19 05/01/19 05/01/19 11:10 16:06 20:16 WBC RBC Hgb Hct MCV MCH MCHC RDW Std Deviation RDW Coeff of Eduard Plt Count MPV Immature Gran % (Auto) Neut % (Auto) Lymph % (Auto) [place] % (Auto) Eos % (Auto) Baso % (Auto) Immature Gran # (Auto) Neut # (Auto) Lymph # (Auto) [place] # (Auto) Eos # (Auto) Baso # (Auto) PT INR APTT PTT Ratio Sodium Potassium Chloride Carbon Dioxide Anion Gap BUN Creatinine Est Cr Clr Drug Dosing Est GFR ( Amer) Est GFR (Non-Af Amer) BUN/Creatinine Ratio Glucose POC Glucose 117 H 129 H Calcium Magnesium Total Bilirubin AST ALT Alkaline Phosphatase Total Creatine Kinase Troponin I Total Protein Albumin Globulin Albumin/Globulin Ratio TSH Free T4 Urine Color Urine Appearance Urine pH Ur Specific [place] Urine Protein Urine Glucose (UA) Urine Ketones Urine Blood Urine Nitrite Urine Bilirubin Urine Urobilinogen Ur Leukocyte Esterase Urine WBC (Auto) Urine RBC (Auto) U Hyaline Cast (Auto) U Epithel Cells (Auto) Urine Bacteria (Auto) Hepatitis C Ab Screen Neg 05/01/19 05/02/19 05/02/19 20:57 03:40 04:43 WBC 5.82 RBC 3.96 L Hgb 12.1 Hct 34.7 L MCV 87.6 MCH 30.6 MCHC 34.9 RDW Std Deviation 42.7 RDW Coeff of Eduard 13.2 Plt Count 191 MPV 9.4 Immature Gran % (Auto) 0.3 Neut % (Auto) 61.2 Lymph % (Auto) 29.0 [place] % (Auto) 7.2 Eos % (Auto) 2.1 Baso % (Auto) 0.2 Immature Gran # (Auto) 0.02 Neut # (Auto) 3.56 Lymph # (Auto) 1.69 [place] # (Auto) 0.42 Eos # (Auto) 0.12 Baso # (Auto) 0.01 PT INR APTT 82.5 H* PTT Ratio 3.0 Sodium Potassium Chloride Carbon Dioxide Anion Gap BUN Creatinine Est Cr Clr Drug Dosing Est GFR ( Amer) Est GFR (Non-Af Amer) BUN/Creatinine Ratio Glucose POC Glucose Calcium Magnesium Total Bilirubin AST ALT Alkaline Phosphatase Total Creatine Kinase Troponin I Total Protein Albumin Globulin Albumin/Globulin Ratio TSH Free T4 Urine Color Yellow Urine Appearance Clear Urine pH 5.0 Ur Specific [place] 1.019 Urine Protein Negative Urine Glucose (UA) Negative Urine Ketones Negative Urine Blood Negative Urine Nitrite Negative Urine Bilirubin Negative Urine Urobilinogen Negative Ur Leukocyte Esterase 1+ H Urine WBC (Auto) 1-5 Urine RBC (Auto) 0-4 U Hyaline Cast (Auto) 1-5 U Epithel Cells (Auto) >30 H Urine Bacteria (Auto) Negative Hepatitis C Ab Screen 05/02/19 05/02/19 05/02/19 04:43 04:43 07:30 WBC RBC Hgb Hct MCV MCH MCHC RDW Std Deviation RDW Coeff of Eduard Plt Count MPV Immature Gran % (Auto) Neut % (Auto) Lymph % (Auto) [place] % (Auto) Eos % (Auto) Baso % (Auto) Immature Gran # (Auto) Neut # (Auto) Lymph # (Auto) [place] # (Auto) Eos # (Auto) Baso # (Auto) PT INR APTT 57.7 H* PTT Ratio 2.1 Sodium 144 Potassium 3.5 Chloride 108 H Carbon Dioxide 30 Anion Gap 6.0 BUN 18 Creatinine 0.91 Est Cr Clr Drug Dosing 60.3 Est GFR ( Amer) 72.5 Est GFR (Non-Af Amer) 62.6 BUN/Creatinine Ratio 19.4 Glucose 115 H POC Glucose 119 H Calcium 8.5 Magnesium 2.0 Total Bilirubin AST ALT Alkaline Phosphatase Total Creatine Kinase Troponin I Total Protein Albumin Globulin Albumin/Globulin Ratio TSH Free T4 Urine Color Urine Appearance Urine pH Ur Specific [place] Urine Protein Urine Glucose (UA) Urine Ketones Urine Blood Urine Nitrite Urine Bilirubin Urine Urobilinogen Ur Leukocyte Esterase Urine WBC (Auto) Urine RBC (Auto) U Hyaline Cast (Auto) U Epithel Cells (Auto) Urine Bacteria (Auto) Hepatitis C Ab Screen
[2019-05-02] MEDS ORDERED: AMIODARONE 200 MG TAB PO ONE (10:57)
--- NOTE | 2019-05-02 12:49 | Hospitalist Progress Note ---
Date of Service May 02, 2019 Assessment & Plan (1) Nonischemic cardiomyopathy: Note from admitting provider: Pt is 74 y/o F with PMH hypothyroidism, HLD, recently diagnosed papillary thyroid carcinoma, Nonischemic cardiomyopathy EF <20% presented to ER with complaint of alert/warning from LifeVest. Recently diagnosed with nonischemic cardiomyopathy. 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 Treated with medical management. Pt reports unaware of shock from LifeVest today, however ER staff report pt received one shock Recent echo: 04/18/19: EF <20%, grade 1 diastolic dysfunction, septal motion abnormal consistent with intraventricular conduction delay, remaining LV wall segments are severely hypokinetic. mild secondary mitral regurgitation is present. Initial vitals in ER with P: 131, R: 22, BP: 170/87. Vitals improved to P: 95, BP: 125/74 No leukocytosis. negative troponin, no significant electrolyte abnormality. TSH: 0.03 CXR: cardiomegaly She was started with intravenous amiodarone Heart rate remains controlled with amiodarone now on oral amiodarone since this morning Appreciate cardiology input and recommendation Likely be discharged tomorrow with LifeVest Atrial fibrillation with rapid ventricular response Nonischemic cardiomyopathy Atrial fibrillation is complicated by therapeutic hypothyroidism Has been on intravenous heparin and amiodarone drip has been changed to oral amnio We will continue other cardiac medications Will restart aspirin and Eliquis Hold aspirin for 5 to 7 days and Eliquis 3 to 5 days prior to thyroidectomy (2) Hypothyroidism: As above The case was discussed by admitting physician with [facility] at [facility] Thyroxine has been decreased 200 mcg (3) Papillary thyroid carcinoma: TSH: 0.03. Free T4: 1.89 Pt to have thyroidectomy for papillary thyroid carcinoma in 05/16/19 at [facility] [place] -Continue levothyroxine (4) Hyperglycemia: A1c: 6.6 on 02/2019 -Hold home metformin -Novolog sliding scale per protocol DVT Prophylaxis -Heparin drip Full Code as per discussion with pt Follows with Bekah De Jesus PA-C for routine care Remains a stable Likely discharge tomorrow Subjective 05/02 The patient was seen and examined in the telemetry unit She denies any symptoms as of today No more cardiac arrhythmias noted in the telemetry unit She denies any chest pain no shortness of breath, no palpitation and no tremor Review of Systems Review of Systems: All systems reviewed and are unremarkable except as noted Cardiovascular: no chest pain Genitourinary: no dysuria, no urinary frequency and no urinary hesitancy Musculoskeletal: no back pain Physical Exam Physical Exam: Lying in bed comfortably but very anxious Constitutional: well developed; no acute distress and not ill appearing Eyes: PERRL, conjunctivae normal, anicteric sclerae ENMT: external ear and nose normal, oropharynx normal Neck: trachea midline, no thyromegaly Respiratory: normal respiratory effort; no respiratory distress Auscultation: lungs clear to auscultation bilaterally Cardiovascular: Rate/Rhythm: regular rate and regular rhythm Heart Sounds: no murmur Gastrointestinal (Abdomen): Inspection/Auscultation: abdomen normal to inspection and normal bowel sounds Percussion/Palpation: abdomen soft Musculoskeletal: No acute arthritis in any joint Neurologic: moves all extremities; no focal motor deficits Motor/Sensory: no tremor Psychiatric: Orientation: alert and oriented x 3 Affect: + anxious affect Results & Data Vital Signs (Past 12 Hours) Vital Signs Temp Pulse Resp BP Pulse Ox 05/02/19 11:24 36.5 C 52 L 20 117/72 05/02/19 08:20 36.8 C 68 18 156/77 H 96 05/02/19 07:06 36.9 C 51 L 17 120/70 96 05/02/19 03:12 36.6 C 53 L 18 108/60 97 Laboratory Results Short CBC 05/02/19 Range/Units 04:43 WBC 5.82 (4.8-10.8) K/uL Hgb 12.1 (12.0-16.0) g/dL Hct 34.7 L (37-47) % Plt Count 191 (130-400) K/uL BMP 05/02/19 04:43 Sodium 144 Potassium 3.5 Chloride 108 H Carbon Dioxide 30 BUN 18 Creatinine 0.91 Glucose 115 H Calcium 8.5 Urine 05/02/19 Range/Units 03:40 Urine Color Yellow Urine Appearance Clear (Clear) Urine pH 5.0 (4.5-7.5) Ur Specific [place] 1.019 (1.000-1.030) Urine Protein Negative (Negative) Urine Glucose (UA) Negative (Negative) Medications Administered Current Inpatient Medications Acetaminophen (Tylenol) 650 mg PO Q4H PRN PRN Reason: Pain or Fever Stop: 05/31/19 14:58 Amiodarone HCl (Cordarone) 200 mg PO BIDM [facility] Stop: 06/01/19 16:59 Aspirin (Ecotrin Ectab) 81 mg PO DAILY [facility] Stop: 06/01/19 08:59 Last Admin: 05/02/19 09:25 Dose: 81 mg Documented by: Atorvastatin Calcium (Lipitor) [facility] [place] Stop: 06/01/19 08:59 Last Admin: 05/02/19 09:26 Dose: 40 mg Documented by: Dextrose (Dextrose 50%) 25 - 50 ml IV UD PRN; Protocol PRN Reason: Hypoglycemia Protocol Stop: 05/31/19 14:58 Glucagon (Glucagen) 1 mg SQ UD PRN; Protocol PRN Reason: Hypoglycemia Protocol Stop: 05/31/19 14:58 Glucose (Glucose 40%) 15 - 30 gm PO UD PRN; Protocol PRN Reason: Hypoglycemia Protocol Stop: 05/31/19 14:58 Glucose (Dex4 Glucose) 4 - 8 tabs PO UD PRN; Protocol PRN Reason: Hypoglycemia Protocol Stop: 05/31/19 14:58 Heparin Sodium/Dextrose (Heparin Sodium/Dextrose) 25,000 units in 500 mls @ 22 mls/hr IV .[id number] [facility]; Protocol Stop: 05/31/19 15:14 Last Titration: 05/02/19 05:30 Dose: 1,100 units/hr, 22 mls/hr Documented by: Insulin Aspart (Novolog Flexpen) 0 units SC ACHS [facility] Stop: 05/31/19 16:29 Last Admin: 05/02/19 11:44 Dose: Not Given Documented by: Levothyroxine Sodium (Synthroid) 100 mcg PO DAILYBB [facility] Stop: 06/01/19 06:29 Last Admin: 05/02/19 05:15 Dose: 100 mcg Documented by: Lisinopril (Zestril) [facility] [place] Stop: 06/01/19 08:59 Last Admin: 05/02/19 09:27 Dose: 5 mg Documented by: Metoprolol Succinate (Toprol Xl) 25 mg PO BID [facility] Stop: 05/31/19 20:59 Last Admin: 05/02/19 09:26 Dose: 25 mg Documented by: Miscellaneous (Carbohydrates For Hypoglycemia) 15 - 30 gm PO UD PRN PRN Reason: Hypoglycemia Treatment Stop: 05/31/19 14:58 Spironolactone (Aldactone) 12.5 mg PO DAILY [facility] Stop: 06/01/19 08:59 Last Admin: 05/02/19 09:23 Dose: 12.5 mg Documented by:
[2019-05-02] MEDS: HEPARIN SODIUM/DEXTROSE 25,000 UNITS/500 ML BAG IV SCH (13:11)
--- NOTE | 2019-05-02 13:17 | Cardiology Consultation ---
Date of Consultation EP Cardiology consultation due to WCT Referring Physician: Dr. Maurice Reason for consultation: WCT May 02, 2019 Assessment & Plan (1) Atrial fibrillation with RVR: (2) Nonischemic cardiomyopathy: (3) LBBB (left bundle branch block): QRS has long as 160ms (4) Sinus bradycardia: History of Present Illness Reason for Consultation: WCT Requesting Physician: Dr. Maurice Attending Physician: Alber Pierre MD History of Present Illness This is a 74 y.o Female with PMH NICM diagnosed in 02/2019, chronic systolic HF- NYHA Class III, LBBB, Papillary thyroid CA due to have surgery in a few weeks. Pt was discharged from [facility] wearing a life vest and on appropriate HF medications. The day of admission patient denied any lightheadedness, dizziness, chest pains, SOB/SMALL, palpitations, near syncope. She presented to the ED becuase her lifevest kept flashing fast HR. In the ED she was found to be in a WCT about 200bpm. She ultimately received a shock from her lifevest. She was started on amiodarone infusion. Allergies Allergy/AdvReac Type Severity Reaction Status Date / Time Iodinated Contrast Media Allergy Intermediate sob/unsteady Verified 05/01/19 12:26 [Iodinated Contrast- Oral gait and IV Dye] codeine Allergy Mild nausea/vomi Verified 05/01/19 12:26 ting Home Medications Home Medications Medication Instructions Recorded Confirmed Type aspirin 81 mg PO DAILY 03/27/19 05/01/19 History levothyroxine [Synthroid] 125 mcg PO DAILY 03/27/19 05/01/19 History lisinopril [Zestril] 5 mg PO QAM 30 Days #30 tab 03/30/19 05/01/19 Rx metformin [Glucophage] 500 mg PO DAILY 30 Days #30 tab 03/30/19 05/01/19 Rx metoprolol succinate 25 mg PO BID 30 Days #60 tab 03/30/19 05/01/19 Rx spironolactone 12.5 mg PO DAILY 30 Days #15 tab 03/30/19 05/01/19 Rx atorvastatin 40 mg PO HS 05/01/19 05/01/19 History Patient History Medical History Nonischemic cardiomyopathy (Chronic) HLD (hyperlipidemia) (Chronic) Hypothyroidism (Chronic) Papillary thyroid carcinoma (Chronic) Surgical History History of appendectomy (Chronic) History of salpingo-oophorectomy (Chronic) Family History Father Alzheimer disease Mother Alive and well Brother Alive and well Social History Preferred Language: Indian Communication Ability: Effective Metrology Manager Required: No Beliefs That Will Affect Care: None marital status: Current Living Situation: Spouse Other Information That Helps Us Care for You: No Feels Safe at Home: Yes Safety Concerns: Feels Safe At This Time Smoking Status: Never smoker Hx Alcohol Use: No Hx Substance Use: No Review of Systems Review of Systems: All systems reviewed & are unremarkable except as noted in HPI & below Constitutional: no fever and no chills Eyes: no diplopia and no tunnel vision Ear, Nose, Mouth, Throat: no dizziness and no post nasal drip Respiratory: no cough, no dyspnea and no dyspnea on exertion Cardiovascular: no chest pain, no dyspnea at rest, no dyspnea on exertion, no palpitations, no syncope and no edema Gastrointestinal: no heartburn, no nausea, no vomiting, no constipation and no diarrhea/loose stools Genitourinary: no dysuria and no hematuria Neurologic: no generalized weakness, no numbness, no dizziness and no syncope Psychiatric: no anxiety Endocrine: no fatigue and no cold intolerance Hematologic / Lymphatic: papillary thyroid CA Physical Exam Physical Exam: aaox3, NAD NC/AT, EOMI Supple No JVD Nrl S1/S2, No murmur CTA b/l no w/r/r soft nt/nd no LE edema b/l skin intact no focal deficits Results & Data Vital Signs (Past 12 Hours) Vital Signs Temp Pulse Resp BP Pulse Ox 05/02/19 07:06 36.9 C 51 L 17 120/70 96 05/02/19 03:12 36.6 C 53 L 18 108/60 97 05/01/19 23:09 36.5 C 59 L 18 132/72 97 Diagnostic Findings Cardiac Catheterization: 02/2019: LM: normal LAD: ostial 20%, prox 10%, mid 30% and distal 10% Cx: mid 30% RCA: normal Echocardiogram: 03/27/2019: EF 25-30% Septal wall motion c/w LBBB Base infero septum akinetic to dyskinetic Base mid info septum hypokinetic to akinetic Moderate diffuse hypokinesis LA mildly enlarged Mild AV slcerosis no stenosis Mild MR Trivial loculated pericardial effusion CXR 05/01/2019: Resolved pulmonary congestion Lab work reviewed: BMP, CBC and LFTs and coags reviewed TSH low at 0.037 Free T4: 1.89 Medications Administered I reviewed the inpatient medications ECG Additional Comments: ECGs: 05/02/2019: SR 60bpm LBBB QRS 160ms 05/01/2019:ST 102bpm LBBB QRS 154ms 05/01/2019: WCT appears to be AF with aberrancy 195bpm LBBB 03/29/2019: SR 66bpm LBBB 160ms 03/28/2019:SR 89bpm LBBB QRS 154ms 03/27/2019:ST 110bpm PVC LBBB 146ms 03/27/2019: SR 88bpm LBBB 148ms
[2019-05-02] MEDS: AMIODARONE 200 MG TAB PO SCH (16:13)
[2019-05-02] MEDS ORDERED: HEPARIN - STOP ORDER ONE (21:00)
[2019-05-02] MEDS: APIXABAN 5 MG TABLET PO SCH (21:32)
[2019-05-03] MEDS: LEVOTHYROXINE SODIUM 100 MCG TABLET PO SCH (06:22)
[2019-05-03] MEDS: ATORVASTATIN 40 MG TAB PO SCH (07:43)
[2019-05-03] MEDS: ASPIRIN 81 MG ECTAB PO SCH (07:44)
[2019-05-03] MEDS: AMIODARONE 200 MG TAB PO SCH (07:44)
[2019-05-03] MEDS: APIXABAN 5 MG TABLET PO SCH (07:44)
[2019-05-03] MEDS: lisinopriL 5 MG TAB PO SCH (07:44)
[2019-05-03] MEDS: SPIRONOLACTONE 25 MG TAB PO SCH (07:45)
[2019-05-03] MEDS: INSULIN ASPART 100 UNITS/ML 3 ML PEN SC SCH ×2 (07:46→11:53)
[2019-05-03 07:58] LABS: BUN Creatinine Ratio 20.6 (10-20); Calcium 9.2 mg/dl (8.5-10.1); Creatinine Clr Calc Pharmacy 57.6 ml/min; Est GFR (African American) 71.6; Est GFR (Non-African American) 61.8; Potassium 3.7 mmol/L (3.5-5.1)
[2019-05-03] MEDS: METOPROLOL SUCC 25MG EXT REL TAB PO SCH (09:53)
--- NOTE | 2019-05-03 10:15 | Cardiology Progress Note ---
Date of Service May 03, 2019 Assessment & Plan (1) Atrial fibrillation with RVR: (2) Nonischemic cardiomyopathy: (3) LBBB (left bundle branch block): Continue oral amiodarone 200 mg twice daily for 10 days then reduce dose to 200 mg once daily. Continue Eliquis 5 mg twice daily. Eliquis may be held 3 to 5 days prior to upcoming thyroid surgery. Patient will receive training and be refitted for LifeVest at time of discharge. Instructed to proceed to the emergency department with any recurrent dysrhythmias or external defibrillator shocks. Close outpatient cardiology follow-up in 1 to 2 weeks. Subjective Patient seen and examined at the bedside. Short, 6 beat constantino of paroxysmal atrial fibrillation recorded overnight. Patient denies palpitations or chest discomfort. Feeling well from a cardiovascular perspective. Transition from IV heparin to Eliquis last evening. Patient offers no complaints at this time. Review of Systems Review of Systems: All systems reviewed & are unremarkable except as noted in HPI & below Physical Exam Physical Exam: General: NAD, AAO x3, well nourished. HEENT: Normocephalic. Atraumatic. Conjunctiva pink, no scleral icterus. Neck: No carotid bruits, the carotid upstrokes are brisk. No JVD. No HJR Heart: Regular normal S-1 and S-2 no S-3 or S-4 gallop. No murmurs or rub appreciated. PMI is not displaced. No RV heave. Lungs: Clear bilateral without rales , rhonchi, or wheeze. Abdomen: Normal bowel sounds. Soft. Nontender. No masses or organomegaly. No abdominal bruits. Extremities: No clubbing, cyanosis, or edema. Pulses: radial=2/4, Dorsalis pedis =2/4, posterior tibial=2/4. Neuro: Cranial nerves grossly intac t. No focal motor deficit. Results & Data Vital Signs (Past 12 Hours) Vital Signs Temp Pulse Resp BP Pulse Ox 05/03/19 07:24 36.5 C 58 L 18 122/62 94 05/03/19 04:40 36.7 C 62 18 120/60 96 05/02/19 23:46 36.8 C 66 19 126/75 95 Laboratory Results Laboratory Results - last 24 hr 05/02/19 05/02/19 05/02/19 11:22 16:18 20:10 Sodium Potassium Chloride Carbon Dioxide Anion Gap BUN Creatinine Est Cr Clr Drug Dosing Est GFR ( Amer) Est GFR (Non-Af Amer) BUN/Creatinine Ratio Glucose POC Glucose 106 H 111 H 112 H Calcium Magnesium 05/03/19 05/03/19 06:59 07:21 Sodium 144 Potassium 3.7 Chloride 108 H Carbon Dioxide 32 Anion Gap 4.0 BUN 19 H Creatinine 0.92 Est Cr Clr Drug Dosing 57.6 Est GFR ( Amer) 71.6 Est GFR (Non-Af Amer) 61.8 BUN/Creatinine Ratio 20.6 H Glucose 102 H POC Glucose 101 H Calcium 9.2 Magnesium 2.0
--- NOTE | 2019-05-03 11:18 | Hospitalist Progress Note ---
Date of Service May 03, 2019 Assessment & Plan (1) Nonischemic cardiomyopathy: Note from admitting provider: Pt is 74 y/o F with PMH hypothyroidism, HLD, recently diagnosed papillary thyroid carcinoma, Nonischemic cardiomyopathy EF <20% presented to ER with complaint of alert/warning from LifeVest. Recently diagnosed with nonischemic cardiomyopathy. 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 Treated with medical management. Pt reports unaware of shock from LifeVest today, however ER staff report pt received one shock Recent echo: 04/18/19: EF <20%, grade 1 diastolic dysfunction, septal motion abnormal consistent with intraventricular conduction delay, remaining LV wall segments are severely hypokinetic. mild secondary mitral regurgitation is present. Initial vitals in ER with P: 131, R: 22, BP: 170/87. Vitals improved to P: 95, BP: 125/74 No leukocytosis. negative troponin, no significant electrolyte abnormality. TSH: 0.03 CXR: cardiomegaly She was started with intravenous amiodarone Heart rate remains controlled with amiodarone now on oral amiodarone since this morning Appreciate cardiology input and recommendation Remain stable with controlled heart rate Denies any symptoms Will go home this afternoon with the life Vest Atrial fibrillation with rapid ventricular response Nonischemic cardiomyopathy Atrial fibrillation is complicated by therapeutic hypothyroidism Has been on intravenous heparin and amiodarone drip has been changed to oral amnio We will continue other cardiac medications Will restart aspirin and Eliquis Hold aspirin for 5 to 7 days and Eliquis 3 to 5 days prior to thyroidectomy (2) Hypothyroidism: As above The case was discussed by admitting physician with lock master at [place] Thyroxine has been decreased to 100 Mcg (3) Papillary thyroid carcinoma: TSH: 0.03. Free T4: 1.89 Pt to have thyroidectomy for papillary thyroid carcinoma [place] [facility]Continue levothyroxine -Continue to hold aspirin and Eliquis about 5 to 7 days before surgery (4) Hyperglycemia: A1c: 6.6 on 02/2019 -Hold home metformin -Novolog sliding scale per protocol DVT Prophylaxis -Heparin drip Full Code as per discussion with pt Follows with Bekah De Jesus PA-C for routine care Remains a stable Likely discharge tomorrow Subjective 05/02 The patient was seen and examined in the telemetry unit She denies any symptoms as of today No more cardiac arrhythmias noted in the telemetry unit She denies any chest pain no shortness of breath, no palpitation and no tremor 05/03 Patient was seen from the unit She remains very anxious denies any cardiac symptoms No more wide complex tachycardia A. fib with RVR noted Will be discharged home this afternoon Review of Systems Review of Systems: Systems reviewed and are unremarkable except as noted. Psychiatric: + anxiety Physical Exam Physical Exam: Sitting at the bed without any acute symptoms Constitutional: well developed and + thin; no acute distress and not ill appearing Eyes: PERRL, conjunctivae normal, anicteric sclerae ENMT: external ear and nose normal, oropharynx normal Neck: trachea midline Mild thyromegaly Respiratory: normal respiratory effort; no respiratory distress Auscultation: lungs clear to auscultation bilaterally Cardiovascular: Rate/Rhythm: regular rate and regular rhythm Heart Sounds: no murmur Gastrointestinal (Abdomen): Inspection/Auscultation: abdomen normal to inspection and normal bowel sounds Percussion/Palpation: abdomen soft Neurologic: moves all extremities; no focal motor deficits Motor/Sensory: no tremor Psychiatric: Orientation: alert and oriented x 3 Affect: + anxious affect Lymphatic: no cervical or axillary lymphadenopathy Results & Data Vital Signs (Past 12 Hours) Vital Signs Temp Pulse Resp BP Pulse Ox 05/03/19 07:24 36.5 C 58 L 18 122/62 94 05/03/19 04:40 36.7 C 62 18 120/60 96 05/02/19 23:46 36.8 C 66 19 126/75 95 Laboratory Results [facility] 05/03/19 06:59 Sodium 144 Potassium 3.7 Chloride 108 H Carbon Dioxide 32 BUN 19 H Creatinine 0.92 Glucose 102 H Calcium 9.2 Medications Administered Current Inpatient Medications Acetaminophen (Tylenol) 650 mg PO Q4H PRN PRN Reason: Pain or Fever Stop: 05/31/19 14:58 Amiodarone HCl (Cordarone) 200 mg PO BIDM [facility] Stop: 06/01/19 16:59 Last Admin: 05/03/19 07:44 Dose: 200 mg Documented by: Apixaban (Eliquis) 5 mg PO BID [facility] Stop: 06/01/19 20:59 Last Admin: 05/03/19 07:44 Dose: 5 mg Documented by: Aspirin (Ecotrin Ectab) 81 mg PO DAILY [facility] Stop: 06/01/19 08:59 Last Admin: 05/03/19 07:44 Dose: 81 mg Documented by: Atorvastatin Calcium (Lipitor) 40 mg PO QAM JORDAN Stop: 06/01/19 08:59 Last Admin: 05/03/19 07:43 Dose: 40 mg Documented by: Dextrose (Dextrose 50%) 25 - 50 ml IV UD PRN; Protocol PRN Reason: Hypoglycemia Protocol Stop: 05/31/19 14:58 Glucagon (Glucagen) 1 mg SQ UD PRN; Protocol PRN Reason: Hypoglycemia Protocol Stop: 05/31/19 14:58 Glucose (Glucose 40%) 15 - 30 gm PO UD PRN; Protocol PRN Reason: Hypoglycemia Protocol Stop: 05/31/19 14:58 Glucose (Dex4 Glucose) 4 - 8 tabs PO UD PRN; Protocol PRN Reason: Hypoglycemia Protocol Stop: 05/31/19 14:58 Insulin Aspart (Novolog Flexpen) 0 units SC ACHS JORDAN Stop: 05/31/19 16:29 Last Admin: 05/03/19 07:46 Dose: 1 units Documented by: Levothyroxine Sodium (Synthroid) 100 mcg PO DAILYBB [facility] Stop: 06/01/19 06:29 Last Admin: 05/03/19 06:22 Dose: 100 mcg Documented by: Lisinopril (Zestril) 5 mg PO QAM JORDAN Stop: 06/01/19 08:59 Last Admin: 05/03/19 07:44 Dose: 5 mg Documented by: Metoprolol Succinate (Toprol Xl) 25 mg PO BID [facility] Stop: 05/31/19 20:59 Last Admin: 05/03/19 09:53 Dose: 25 mg Documented by: Miscellaneous (Carbohydrates For Hypoglycemia) 15 - 30 gm PO UD PRN PRN Reason: Hypoglycemia Treatment Stop: 05/31/19 14:58 Spironolactone (Aldactone) 12.5 mg PO DAILY [facility] Stop: 06/01/19 08:59 Last Admin: 05/03/19 07:45 Dose: 12.5 mg Documented by:
--- NOTE | 2019-05-03 17:25 | Discharge Summary ---
Date of Service May 03, 2019 Admission HPI Per Admitting Provider Pt is 74 y/o F with PMH hypothyroidism, HLD, recently diagnosed papillary thyroid carcinoma, Nonischemic cardiomyopathy EF <20% presented to ER with complaint of alert/warning from LifeVest. Pt with hx hospitalization 03/27/19- 03/29/19 and was diagnosed with nonischemic cardiomyopathy. 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 Treated with medical management. Today pt states was out doing errands when she was alerted by her LifeVest to seek medical evaluation at hospital. Patient reports felt a tap "on her back" today and is unaware if she received shock from LifeVest. Reported by ER staff pt while being placed in room in ER she received shock from her LifeVest. Pt states feels at baseline without any symptoms. Denies CP, SOB, palpitations, tachycardia sensation, dizziness, syncope. Pt was scheduled to have thyroidectomy on 05/16/19 at [facility] [place] for papillary thyroid carcinoma. Pt was to start holding aspirin today secondary to upcoming procedure. Denies fever/ chills, diaphoresis, N/V/D/C, AG, vision changes, neck pain, orthopnea, cough, sore throat, choking, otalgia, rhinorrhea, abdominal pain, paresthesias, weakness, extremity weakness, extremity edema, rashes, urinary symptoms. Had echo: 04/18/19: EF <20%, grade 1 diastolic dysfunction, septal motion abnormal consistent with intraventricular conduction delay, remaining LV wall segments are severely hypokinetic. mild secondary mitral regurgitation is present. Admission Exam Per Admitting Provider Physical Exam: General: no acute distress, WDWN Head: normocephalic, atraumatic Eyes: PERRL, EOM's intact, conjunctiva non-injected, anicteric ENT: normal inspection external ears, nose, mucous membranes moist Neck: supple, trachea midline Lungs: clear, no respiratory distress, no wheezing/rhonchi/rales CV: RRR, no murmur, no pretibial edema Abd: normal BS, soft, non-tender Ext: no cyanosis, no calf tenderness Neuro: A&O x 3, no focal deficits noted, mildly anxious affect Skin: warm, dry Principal Diagnosis Atrial fibrillation with RVR, nonischemic cardiomyopathy, papillary thyroid carcinoma on suppressive thyroxine. Discharge Exam Constitutional well developed and + thin; no acute distress and not ill appearing Eyes PERRL, conjunctivae normal, anicteric sclerae ENMT external ear and nose normal, oropharynx normal Neck trachea midline, no thyromegaly trachea midline Respiratory normal respiratory effort; no respiratory distress Auscultation: lungs clear to auscultation bilaterally Cardiovascular Rate/Rhythm: regular rate and regular rhythm Heart Sounds: no murmur Gastrointestinal (Abdomen) Inspection/Auscultation: abdomen normal to inspection and normal bowel sounds Percussion/Palpation: abdomen soft Neurologic moves all extremities; no focal motor deficits Motor/Sensory: no tremor Psychiatric Orientation: alert and oriented x 3 Affect: + anxious affect Lymphatic no cervical or axillary lymphadenopathy Discharge Data Allergies Allergy/AdvReac Type Severity Reaction Status Date / Time Iodinated Contrast Media Allergy Intermediate sob/unsteady Verified 05/01/19 12:26 [Iodinated Contrast- Oral gait and IV Dye] codeine Allergy Mild nausea/vomi Verified 05/01/19 12:26 ting Consultations 05/01/19 12:01 ED Decision to Admit Stat 05/01/19 14:59 Consult Cardiology Routine Consult Case Management - Discharge Planning Routine 05/01/19 16:01 Consult Cardiac Electrophysiology Routine Hospital Course (1) Nonischemic cardiomyopathy: Note from admitting provider: Pt is 74 y/o F with PMH hypothyroidism, HLD, recently diagnosed papillary thyroid carcinoma, Nonischemic cardiomyopathy EF <20% presented to ER with complaint of alert/warning from LifeVest. Recently diagnosed with nonischemic cardiomyopathy. 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 Treated with medical management. Pt reports unaware of shock from LifeVest today, however ER staff report pt received one shock Recent echo: 04/18/19: EF <20%, grade 1 diastolic dysfunction, septal motion abnormal consistent with intraventricular conduction delay, remaining LV wall segments are severely hypokinetic. mild secondary mitral regurgitation is present. Initial vitals in ER with P: 131, R: 22, BP: 170/87. Vitals improved to P: 95, BP: 125/74 No leukocytosis. negative troponin, no significant electrolyte abnormality. TSH: 0.03 CXR: cardiomegaly She was started with intravenous amiodarone Heart rate remains controlled with amiodarone now on oral amiodarone since this morning Appreciate cardiology input and recommendation Remain stable with controlled heart rate Denies any symptoms Will go home this afternoon with the life Vest Atrial fibrillation with rapid ventricular response Nonischemic cardiomyopathy Atrial fibrillation is complicated by therapeutic hypothyroidism Has been on intravenous heparin and amiodarone drip has been changed to oral amnio We will continue other cardiac medications Will restart aspirin and Eliquis Hold aspirin for 5 to 7 days and Eliquis 3 to 5 days prior to thyroidectomy (2) Hypothyroidism: As above The case was discussed by admitting physician with collision repair technician at [place] Thyroxine has been decreased to 100 Mcg (3) Papillary thyroid carcinoma: TSH: 0.03. Free T4: 1.89 Pt to have thyroidectomy for papillary thyroid carcinoma in 05/16/19 at [facility] [place] -Continue levothyroxine -Continue to hold aspirin and Eliquis about 5 to 7 days before surgery (4) Hyperglycemia: A1c: 6.6 on 02/2019 -Hold home metformin -Novolog sliding scale per protocol DVT Prophylaxis -Heparin drip Full Code as per discussion with pt Follows with Bekah De Jesus PA-C for routine care Remains a stable Likely discharge tomorrow Total Time Total Time Spent Total Time Spent (In Minutes): 35 minutes Total Time Includes: Examination of the Patient, Discharge Planning, Medication Reconciliation and Communication With Other Providers Discharge Plan Discharge Items Patient Disposition: Home - Self-Care Reason For Visit: WIDE COMPLEX TACHYCARDIA Discharge Diagnosis: Atrial fibrillation with RVR, nonischemic cardiomyopathy, papillary thyroid carcinoma on suppressive thyroxine. Condition on Discharge: Fair Activity: Resume your previous activity Non-emergency contact: Primary Care Provider Call non-emergency contact if: you have any medication questions and your symptoms worsen Follow-up/Referrals: Sp Maurice DO [Wildland Firefighter] - 05/27/19 9:00 am ([facility] cardiology and [facility]) Bekah De Jesus PA-C [Primary Care Provider] - 05/09/19 2:45 pm (Your appointment is with Dr. Kirit Suero.) Diet: Carb Consistent or DM2 and Heart Healthy Addtl Attending Provider Instructions: Missed precaution to avoid fall. Keep wearing your LifeVest Keep your appointment with collision repair technician in [place] Pending Studies at Discharge: No Stand-Alone Forms: My [facility] [id number] Medications and DC Order Prescriptions: New Eliquis 5 mg Tablet 5 mg PO BID Qty: 60 RF: 0 amiodarone 200 mg Tablet 200 mg PO UD 30 Days Qty: 60 RF: 0 levothyroxine [Synthroid] 100 mcg Tablet 100 mcg PO DAILYBB 30 Days Qty: 30 RF: 0 Continued atorvastatin 40 mg tablet 40 mg PO HS RF: 0 aspirin 81 mg Tablet,Delayed Release (Dr/Ec) 81 mg PO DAILY RF: 0 spironolactone 25 mg Tablet 12.5 mg PO DAILY 30 Days Qty: 15 RF: 2 lisinopril [Zestril] 5 mg Tablet 5 mg PO QAM 30 Days Qty: 30 RF: 2 metoprolol succinate 25 mg Tablet Extended Release 24 Hr 25 mg PO BID 30 Days Qty: 60 RF: 2 metformin [Glucophage] 500 mg Tablet 500 mg PO DAILY 30 Days Qty: 30 RF: 2 Discontinued levothyroxine [Synthroid] 125 mcg Tablet 125 mcg PO DAILY RF: 0 Discharge Orders: Discharge Order (Routine); Ordered 05/03/19 Ordered By: Thaddeus Santos Admission Data Admit Date/Time: 05/01/19 13:06 Attending Provider: Thaddeus Santos Admit Provider: Alber Pierre Primary Care Provider: Bekah De Jesus Other Providers: Sp Maurice ; Alber Pierre ; Daniela Oneil Other Interventions: Discharge Summary Assessment (RN) Last Done: 05/03/19 13:30 DC Date/Time DO NOT enter until pt leaves facility: 05/03/19 13:58
== END 2019-05-03 13:58 | disposition home or self-care (01) | DRG 310 ==
LOC: ED 10:49 → 2S 13:06 → SUATTDRO 13:06 → 2S 14:22
DX: I42.9 Cardiomyopathy, unspecified; Z79.84 Long term (current) use of oral hypoglycemic drugs; Z79.82 Long term (current) use of aspirin; R73.9 Hyperglycemia, unspecified; Z79.899 Other long term (current) drug therapy; E78.5 Hyperlipidemia, unspecified; C73 Malignant neoplasm of thyroid gland; E03.9 Hypothyroidism, unspecified; I44.7 Left bundle-branch block, unspecified; I48.91 Unspecified atrial fibrillation

== ENCOUNTER 2019-07-17 06:19 | Observation (INO) ==
--- NOTE | 2019-07-15 09:38 | Anesthesiology Consultation ---
Date of Service July 15, 2019 Assessment & Plan (1) Encounter for pre-operative examination: Chart Review Chart Review: Acceptable Risk for Surgery and Patient NOT seen in Pre Admission Testing Consults Requested none History Surgery Operation Date: 07/17/19 08:00 Proposed Procedures p ICD Biventricular Implant Anesthesia - Daniela Oneil DO Height/Weight Height: 5 ft 6 in Weight: 79.832 kg Allergies Allergy/AdvReac Type Severity Reaction Status Date / Time Iodinated Contrast Media Allergy Intermediate sob/unsteady Verified 07/15/19 08:04 [Iodinated Contrast- Oral gait and IV Dye] codeine Allergy Mild nausea/vomi Verified 07/15/19 08:04 ting Medications Home Medications Medication Instructions Recorded Confirmed Last Taken atorvastatin 40 mg PO HS 05/01/19 07/15/19 04/30/19 apixaban [Eliquis] 5 mg PO BID #60 tab 05/03/19 07/15/19 Unknown amiodarone 200 mg PO QAM 07/15/19 07/15/19 Unknown levothyroxine 125 mcg PO QAM 07/15/19 07/15/19 Unknown metformin 500 mg PO QAM 07/15/19 07/15/19 Unknown metoprolol succinate 25 mg PO BID 07/15/19 07/15/19 Unknown sacubitril-valsartan [Entresto] 1 tab PO BID 07/15/19 07/15/19 Unknown spironolactone 12.5 mg PO QAM 07/15/19 07/15/19 Unknown Past Medical History Medical History Atrial fibrillation with RVR The patient had pAF with RVR conducted with abberancy due to her baseline LBBB. She did not have sustained VT. But the lifevest shocked her due to the fast rate. Agree with amiodarone-for now and AC Diabetes mellitus, type 2 HLD (hyperlipidemia) (Chronic) continue statin HTN (hypertension) Hypothyroidism (Chronic) Nonischemic cardiomyopathy (Chronic) Continue toprol, ACEI, spironolactone Repeat echo as an outpatient in a few months; if her EF is still down she would benefit from BiV ICD and she will see me in the office as an outpatient Papillary thyroid carcinoma (Chronic) pt for surgery on 05/16/2019; I will reach out to the surgeon Dr. Carreon to let him know about the AF and that she will need anti-coagulation. Past Family History Family History Father Alzheimer disease Mother Alive and well Brother Alive and well Past Surgical History Surgical History History of appendectomy (Chronic) History of salpingo-oophorectomy (Chronic) Hx of thyroidectomy Social History Smoking Status: Never smoker Do You Dip or Chew Tobacco: No Hx Alcohol Use: No Hx Substance Use: No substance use type: does not use Testing Laboratory Results Laboratory Tests 03/27/19 05/01/19 05/01/19 10:41 11:10 11:10 WBC Hgb Hct Plt Count PT 10.4 INR 1.0 APTT Sodium Potassium Chloride Carbon Dioxide BUN Creatinine Glucose Hemoglobin A1c 6.6 H TSH 0.037 L Free T4 1.89 H 05/02/19 05/02/19 05/03/19 04:43 04:43 06:59 WBC 5.82 Hgb 12.1 Hct 34.7 L Plt Count 191 PT INR APTT 57.7 H* Sodium 144 Potassium 3.7 Chloride 108 H Carbon Dioxide 32 BUN 19 H Creatinine 0.92 Glucose 102 H Hemoglobin A1c TSH Free T4 Electrocardiogram Date: 05/03/19 Findings: + LBBB and + SB @ Chest X-Ray Date: 05/02/19 Findings: + NAD and + cardiomegaly; no intestinal edema Echocardiogram Date: 03/28/19 EF: 25-30 LV Function: dysfunctional RWMA: + akinetic (inferioseptal) and + hypokinetic (global) Valvular Disease: + no significant valvular disease Cardiac Catheterization Date: 03/28/19 Findings: + pertinent finding (moderate non obstructive CAD)
[~2019-07-17 06:19] MED LIST: CEFAZOLIN 1000MG 1,000 MG/7.5 ML SYR IV SCH; LR 15ML/HR IV SCH
[2019-07-17] MEDS ORDERED: BUPIVACAINE 0.25% 30 ML VIAL ONE (07:11)
[2019-07-17] MEDS ORDERED: BACITRACIN INJ 50,000 UNIT VIAL ONE (07:11)
[2019-07-17] MEDS ORDERED: LIDOCAINE HCL 1% 20 ML VIAL ONE ×2 (07:11→08:33)
[2019-07-17] MEDS ORDERED: PROPOFOL IV EMULSION 10 MG/ML 100 ML VIAL IV ONE (07:16)
[2019-07-17] MEDS ORDERED: DexMEDEtomidine HCL IV 100 MCG/ML VIAL ONE (07:16)
[2019-07-17] MEDS ORDERED: fentaNYL citrate 100 MCG/2 ML VIAL ONE (07:17)
[2019-07-17] MEDS ORDERED: MIDAZOLAM HCL 1 MG/ML 2ML VIAL ONE (07:17)
[2019-07-17] MEDS ORDERED: ONDANSETRON INJ 2 MG/ML 2 ML VIAL ONE (07:18)
[2019-07-17] MEDS ORDERED: ONDANSETRON INJ 2 MG/ML 2 ML VIAL IV PRN (07:37)
[2019-07-17] MEDS ORDERED: fentaNYL citrate 100 MCG/2 ML VIAL IV PRN (07:37)
[2019-07-17] MEDS ORDERED: ePHEDrine sulfate 50 MG/ML AMP IV PRN (07:37)
[2019-07-17] MEDS ORDERED: ATROPINE SULFATE 0.1 MG/ML 10ML SYR IV PRN (07:37)
--- NOTE | 2019-07-17 07:54 | History & Physical Report ---
Date of Service July 17, 2019 Assessment & Plan (1) NICM (nonischemic cardiomyopathy): (2) Chronic systolic congestive heart failure, NYHA class 3: History of Present Illness Primary Care Provider: Bekah De Jesus PA-C Pt here for elective BiV ICD +fatigue and SOB Allergies Allergy/AdvReac Type Severity Reaction Status Date / Time Iodinated Contrast Media Allergy Intermediate sob/unsteady Verified 07/15/19 08:04 [Iodinated Contrast- Oral gait and IV Dye] codeine Allergy Mild nausea/vomi Verified 07/15/19 08:04 ting Home Medications Home Medications Medication Instructions Recorded Confirmed Type atorvastatin 40 mg PO HS 05/01/19 07/15/19 History apixaban [Eliquis] 5 mg PO BID #60 tab 05/03/19 07/15/19 Rx amiodarone 200 mg PO QAM 07/15/19 07/15/19 History levothyroxine 125 mcg PO QAM 07/15/19 07/15/19 History metformin 500 mg PO QAM 07/15/19 07/15/19 History metoprolol succinate 25 mg PO BID 07/15/19 07/15/19 History sacubitril-valsartan [Entresto] 1 tab PO BID 07/15/19 07/15/19 History spironolactone 12.5 mg PO QAM 07/15/19 07/15/19 History Past Med/Surg History Medical History Atrial fibrillation with RVR The patient had pAF with RVR conducted with abberancy due to her baseline LBBB. She did not have sustained VT. But the lifevest shocked her due to the fast rate. Agree with amiodarone-for now and AC Diabetes mellitus, type 2 HLD (hyperlipidemia) (Chronic) continue statin HTN (hypertension) Hypothyroidism (Chronic) Nonischemic cardiomyopathy (Chronic) Continue toprol, ACEI, spironolactone Repeat echo as an outpatient in a few months; if her EF is still down she would benefit from BiV ICD and she will see me in the office as an outpatient Papillary thyroid carcinoma (Chronic) pt for surgery on 05/16/2019; I will reach out to the surgeon Dr. Carreon to let him know about the AF and that she will need anti-coagulation. Surgical History History of appendectomy (Chronic) History of salpingo-oophorectomy (Chronic) Hx of thyroidectomy Family History Father Alzheimer disease Mother Alive and well Brother Alive and well Social History Preferred Language: Belarusian Communication Ability: Effective Site Director Required: No Beliefs That Will Affect Care: None marital status: Current Living Situation: Spouse Other Information That Helps Us Care for You: No Feels Safe at Home: Yes Safety Concerns: Feels Safe At This Time Smoking Status: Never smoker Do You Dip or Chew Tobacco: No ; Second Hand Exposure: No ; Tobacco Cessation Education Requested by Patient: No Hx Alcohol Use: No Hx Substance Use: No Review of Systems All systems reviewed & are unremarkable except as noted in HPI & below Physical Exam Physical Exam: aaox3, NAD NC/AT, EOMI Supple No JVD Nrl S1/S2, No murmur CTA b/l no w/r/r soft nt/nd no LE edema b/l skin intact no focal deficits Results & Data Vital Signs (Past 12 Hours) Vital Signs Temp Pulse Resp BP Pulse Ox 07/17/19 06:52 36.9 C 52 L 16 171/77 H 98
[2019-07-17] MEDS ORDERED: methylPREDNISolone 125 MG/2 ML VIAL ONE (08:11)
[2019-07-17] MEDS ORDERED: CEFAZOLIN 250 MG/ML 1 GM VIAL ONE (08:11)
[2019-07-17] MEDS ORDERED: BUPIVACAINE 0.5 % 5 MG/1 ML PF 10ML VIAL ONE (08:33)
[2019-07-17] MEDS ORDERED: ePHEDrine sulfate 50 MG/ML SYR ONE (08:34)
[2019-07-17] MEDS ORDERED: DiphenhydrAMINE HCL 50 MG/ML VIAL ONE (08:34)
[2019-07-17] MEDS ORDERED: raNITIdine HCl 25 MG/ML VIAL IV ONE (08:34)
[2019-07-17] MEDS ORDERED: PROPOFOL IV EMULSION 10 MG/ML 20 ML VIAL IV ONE (09:35)
[2019-07-17] MEDS ORDERED: LIDOCAINE HCL 2% 2 ML VIAL/AMP(20MG/ML) INFIL ONE (09:35)
[2019-07-17] MEDS ORDERED: OXYCODONE/ACETAMINOPHEN 5mg/325mg TAB PO PRN (10:11)
[2019-07-17] MEDS ORDERED: ACETAMINOPHEN 325 MG TAB PO PRN (10:11)
--- NOTE | 2019-07-17 10:11 | Operative Report ---
Post Operative Report Pre & Post Diagnosis NICM, LBBB, Chronic systolic HF-NYHA Class II Operation Date: 07/17/19 08:00 <No data on this case meets the specified criteria> I identified the patient and participated in the time-out.: Yes Procedure Operation Date: 07/17/19 08:00 Actual Procedures s Cineradiography w/Routine Exam - Daniela Oneil DO p Lead LV (No Priopr Implant) - Daniela Oneil DO s ICD Insertion Single or Dual - Daniela Oneil DO Surgeon Daniela Oneil, Music Journalist none Estimated Blood Loss 30 Findings Consistent with Post-Op Diagnosis Specimens none Description of Procedure see official report I attest to the content of the Intraoperative Record and any orders documented therein. Any exceptions are noted below.
--- NOTE | 2019-07-17 10:21 | Discharge Summary ---
Date of Service July 18, 2019 Admission HPI Per Admitting Provider Pt here for elective BiV ICD +fatigue and SOB Admission Exam Per Admitting Provider aaox3, NAD NC/AT, EOMI Supple No JVD Nrl S1/S2, No murmur CTA b/l no w/r/r soft nt/nd no LE edema b/l skin intact no focal deficits Principal Diagnosis NICM s/p Biv ICD Discharge Exam aaox3, NAD NC/AT, EOMI Supple No JVD Nrl S1/S2, No murmur CTA b/l no w/r/r soft nt/nd no LE edema b/l skin intact no focal deficits left pectoral incision intact, no hematoma mild ecchymosis, dressing in place Discharge Data Allergies Allergy/AdvReac Type Severity Reaction Status Date / Time Iodinated Contrast Media Allergy Intermediate sob/unsteady Verified 07/15/19 08:04 [Iodinated Contrast- Oral gait and IV Dye] codeine Allergy Mild nausea/vomi Verified 07/15/19 08:04 ting Procedures Performed Operation Date: 07/17/19 08:00 Actual Procedures s Cineradiography w/Routine Exam - Daniela Oneil DO p Lead LV (No Priopr Implant) - Daniela Oneil DO s ICD Insertion Single or Dual - Daniela Oneil DO Ordered Studies ECG: BiV paced CXR: Leads in position; no PTX BiV ICD Interrogation Today: normal function and stable lead testing since implant 07/17/19 06:45 EP Lab Images for PACS ONCE Hospital Course (1) NICM (nonischemic cardiomyopathy): Pt admitted for elective BiV ICD; underwent procedure without any complications; monitored overnight and discharged home in stable condition. Continue home medsd (2) Chronic systolic congestive heart failure, NYHA class 3: continue spironolactone s/p BiV ICD (3) Atrial fibrillation with RVR: restart eliquis; continue amiodarone (4) LBBB (left bundle branch block): s/p BiV ICD Total Time Total Time Spent Total Time Spent (In Minutes): 35 Total Time Includes: Examination of the Patient, Discharge Planning, Medication Reconciliation and Other Discharge Plan Discharge Items Patient Disposition: Home - Self-Care Reason For Visit: BI-V ICD Discharge Diagnosis: NICM, LBBB, pAF, CHF s/p BiV ICD Condition on Discharge: Good Activity: As commented below Activity Comment: do not lift the left elbow over the left shoulder for 1 month Lifting: No more than 10 pounds Lifting Comment: do not lift more than 10 pounds with the left arm for 2 weeks Bathing: Keep incision dry Bathing Comment: keep dressing on & dry until 07/23; then can remove dressing & shower Sexual Activity: After two weeks Non-emergency contact: Media Services Coordinator Call non-emergency contact if: you have any medication questions Follow-up/Referrals: Bekah De Jesus PA-C [Primary Care Provider] - Diet: Heart Healthy and Low Sodium (2gm) Addtl Attending Provider Instructions: Device and wound check as scheduled in [facility] next week Keep dressing on and dry until 07/24 then can remove the dressing and shower-do not scrub let water run over the incision If you notice any swelling or concerns at the device site call my office immediately Pending Studies at Discharge: No Stand-Alone Forms: My [facility] Medications and DC Order Prescriptions: Continued atorvastatin 40 mg tablet 40 mg PO HS RF: 0 Eliquis 5 mg Tablet 5 mg PO BID Qty: 60 RF: 0 metformin 500 mg Tablet 500 mg PO QAM RF: 0 amiodarone 200 mg Tablet 200 mg PO QAM RF: 0 metoprolol succinate 25 mg Tablet Extended Release 24 Hr 25 mg PO BID RF: 0 Entresto 24-26 mg Tablet 1 tab PO BID RF: 0 spironolactone 25 mg tablet 12.5 mg PO QAM RF: 0 levothyroxine 125 mcg Tablet 125 mcg PO QAM RF: 0 Discharge Orders: Discharge Order (Routine); Ordered 07/18/19 Ordered By: Daniela Oneil Admission Data Admit Date/Time: 07/17/19 09:30 Attending Provider: Daniela Oneil Admit Provider: Daniela Oneil Primary Care Provider: Bekah De Jesus
--- NOTE | 2019-07-17 10:38 | Anesthesiology Progress Note ---
Date of Service July 17, 2019 Anesthesia Post Procedure Vital Signs Vital Signs: Temp Pulse Resp BP Pulse Ox 07/17/19 10:30 61 18 133/58 L 94 07/17/19 10:25 61 18 141/59 H 98 07/17/19 10:20 50 L 18 130/62 98 07/17/19 06:52 36.9 C 52 L 16 171/77 H 98 Transfer of Care Handoff Completed per policy Notes Mental Status: alert / awake / arousable and participated in evaluation Patient Amnestic to Procedure: Yes Nausea / Vomiting: adequately controlled Pain: adequately controlled Airway Patency, RR, SpO2: stable & adequate BP & HR: stable & adequate Hydration State: stable & adequate Anesthetic Complications: no major complications apparent and Pt Satisfied with anesthetic care
--- NOTE | 2019-07-17 11:13 | Operative Report ---
DATE OF OPERATION: 07/17/2019 PREOPERATIVE DIAGNOSES: Nonischemic cardiomyopathy, left bundle branch block, chronic systolic and diastolic heart failure, [place] Heart Association class 2, and paroxysmal atrial fibrillation. POSTOPERATIVE DIAGNOSES: Nonischemic cardiomyopathy, left bundle branch block, chronic systolic and diastolic heart failure, [place] Heart Association class 2, and paroxysmal atrial fibrillation. PROCEDURE: Biventricular rate responsive implantable cardiac defibrillator under fluoroscopic guidance along with peripheral venogram and venogram of the coronary sinus. SURGEON: Daniela Oneil DO ASSISTANTS: None. ANESTHESIA: Monitored anesthetic care administered via anesthesiology. Please refer to their notes for complete details. Start time was 08:02, end time was 09:52. The patient got a total of 2 mg of Versed, 100 mcg of fentanyl, 64.8 mg of Precedex, 15 mg of ephedrine, 350 mg of propofol. ADDITIONAL MEDICINES: 50 mg of Zofran, 50 mg of Zantac, 125 mg of Solu-Medrol, 50 mg of Benadryl. ANTIBIOTICS: Two grams of Ancef. INTRAVENOUS FLUIDS: 230 mL. IV CONTRAST: 20 mL. URINE OUTPUT: Not applicable. SPECIMENS: None. FINDINGS: See below. DRAINS: None. CONDITION: Stable. COMPLICATIONS: None evident. INDICATIONS: This is a 74-year-old female with a past medical history for nonischemic cardiomyopathy that was diagnosed in February of 2019. Her ejection fraction remained low on a repeat echo in May 2019 at 20%, paroxysmal atrial fibrillation with rapid ventricular response and aberrant conduction, admitted to [facility] on 05/19/2019. She was started on Eliquis and amiodarone. Her CHADS2-VASc score is 5 for age female, hypertension, diabetes, heart failure, chronic systolic and diastolic heart failure, [place] Heart Association class 2, left bundle branch block, sinus bradycardia, hyperlipidemia and papillary thyroid cancer status post thyroidectomy and radical neck lymph node dissection on 05/16/2019. Due to the nonischemic cardiomyopathy, left bundle and chronic systolic heart failure, she was recommended biventricular defibrillator. CONSENT: Consent was obtained prior to the patient going into electrophysiology lab. The patient was informed of risks, benefits and alternatives to the procedure. Risks include but not limited to sudden cardiac , cardiac arrhythmias, cerebrovascular accident, myocardial infarction, injury to the blood vessels, chamber of the heart, lung, bleeding, and infection. The patient understood these risks and agreed to the procedure as planned. Informed consent was obtained. DESCRIPTION OF THE PROCEDURE: The patient was brought into electrophysiology lab in a fasting state. She was connected to continuous inspector glass or mirror. A timeout was performed to ensure patient identity and procedure correctly. She received prophylactic antibiotics prior to incision as well as she received pretreatment for contrast allergy. Monitored anesthetic care was administered via anesthesiology throughout the case for patient's comfort level. [place] precautions were maintained throughout the procedure. The patient was prepped and draped over the left infraclavicular space in normal surgical standard fashion. Then, 10 mL of 1% lidocaine, bupivacaine mixture were given in the left deltopectoral groove. Incision was made in left deltopectoral groove. Blunt dissection performed down to identify the cephalic vein. The cephalic vein was identified and isolated using 0 silk ties. Then, we set up to do a peripheral venogram using 10 mL of IV contrast diluted in 10 mL of saline followed by 20 mL flush to identify the axillary vein. Then, an axillary venous access was obtained through a needlestick without any problems. The guidewire was inserted without any resistance. Then, I went back to the cephalic vein, I nicked it with an 11 blade and a guidewire was inserted without any resistance. An 8-Barbadian sheath was inserted over the guidewire without any resistance. Dilator was removed and a second guidewire was inserted through the 8-Barbadian sheath to allow for retained venous access. The sheath was removed and a 9.5-Barbadian sheath was inserted over one of the guidewires through the cephalic vein access site. The guidewire and dilator removed and the right ventricular defibrillator lead was advanced into right ventricle and positioned in ventricular apex under fluoroscopic guidance. There was adequate pacing and sensing thresholds and no diaphragmatic stimulation with high output pacing. The 9.5-Barbadian sheath was peeled away and lead was fixated to pectoralis muscle using 0 silk suture. The 8-Barbadian sheath was then advanced over the retained guidewire without any resistance. The guidewire and dilator removed. The right atrial pacing lead was then advanced into right atrium and positioned interatrial appendage under fluoroscopic guidance. There was adequate pacing and sensing thresholds and no diaphragmatic stimulation with high output pacing. The 8-Barbadian sheath was peeled away and lead was fixated to pectoralis muscle using 0 silk suture. There was some backbleeding at the cephalic site, so a pursestring was placed around this using a 2-[address] needle and this stopped the backbleeding. Then, we set up to do the left ventricular lead. A 9.5-Barbadian sheath was inserted over the guidewire through the axillary venous access site. Then, the guidewire and dilator removed and the Medtronic outer MPX coronary sinus sheath was advanced over a Glidewire into the right atrium. The Glidewire and dilator removed. Then, the coronary sinus was cannulated using a diagnostic Decapolar EP catheter and the MPX outer sheath was then advanced over it. We did a venogram of the coronary sinus, which was located in a posterolateral branch. It did have a little bit of an S turn on it, so I used an inner 90 to help wire down into this branch with a Whisper wire and I advanced the inner 90 down into the branch. Then, the left ventricular pacing lead was tracked over the Whisper wire out into the branch. There was adequate pacing and sensing thresholds and no diaphragmatic stimulation with high output pacing. The Whisper wire was removed and a stylet was placed down into the LV lead. Then, the inner 90 was slit under fluoroscopic guidance followed then by the outer MPX sheath followed then by the 9.5-Barbadian sheath was peeled away. The lead was then fixated to pectoralis muscle using 0 silk suture. Then, an additional 10 mL of 1% lidocaine, bupivacaine mixture were given in the deltopectoral pocket area and then I created a pocket over the pectoralis muscle within the pectoralis fascia and using blunt dissection, pocket was flushed with copious amounts of bacitracin saline wash and inspected for hemostasis. The defibrillator was then attached to all leads, making sure that the pins were in appropriate position, passed set screw and set screws were all tightened. Defibrillator was then placed in the pocket, making sure that the leads were lying flat beneath the device. John stat was placed in the pocket as patient is going back on [facility], then the incision was closed in 3-layer fashion using 2-0 Vicryl interrupted suture followed by 3-0 Vicryl interrupted suture followed by a 4-0 Monocryl running stitch, followed then by Dermabond and a Robert and micropore dressing. EQUIPMENT: 1. Pulse generator is a [employer] MRI Quad PROTECTIVE OFFICER-D SureScan [id number], serial number [id number]. 2. Right atrial lead Medtronic 5076-52 cm, serial number [id number]. 3. Right ventricular lead, Medtronic 6935M-62 cm, serial number [id number]. 4. Left ventricular lead, Medtronic 4598-88 cm, serial number [id number]. INTRAOPERATIVE TESTIN. Right atrial lead: P-wave 2.7 millivolts, impedance 497 ohms, threshold 1.25 volts at 0.5 milliseconds. 2. Right ventricular lead: R-wave 8.5 millivolts, impedance 830 ohms, threshold 0.75 volts at 0.5 milliseconds. 3. Left ventricular lead programmed bipolar, LV1-LV2, impedance 597 ohms, threshold 0.5 volts at 0.5 milliseconds. FINAL MEASUREMENTS THROUGH THE DEVICE: 1. Right atrial lead: P waves 1.8 millivolts, impedance 380 ohms, threshold 1.25 volts at 0.4 milliseconds. 2. Right ventricular lead: R-wave 7.1 millivolts, impedance 646 ohms, threshold 0.75 volts at 0.4 milliseconds. 3. Left ventricular lead: Programmed bipolar LV1-LV4, impedance 551 ohms, threshold 0.75 volts at 0.4 milliseconds. 4. RV coil was 64 ohms. FINAL PARAMETERS: DDDR 60/130, right atrial and right ventricular amplitude 3.5 volts, pulse width 0.4 milliseconds, sensitivity 0.3 millivolts. The left ventricular amplitude 4 volts, pulse width 0.4 milliseconds. A VT monitor zone was programmed at 140 beats per minute for 32 detection intervals, VT zone 167 beats per minute for 20 detection intervals and a VF zone at 200 beats per minute for 30/40 detection intervals. IMPRESSION: Successful implantation of biventricular rate responsive implantable cardiac defibrillator under fluoroscopic guidance along with peripheral and coronary sinus venogram secondary to nonischemic cardiomyopathy, left bundle branch block, chronic systolic and diastolic heart failure, [place] Heart Association class 2. PLAN: Monitor patient overnight, 12-lead ECG, chest x-ray. She is not allowed to lift left elbow or left shoulder for 1 month. She cannot lift more than 10 pounds with the left arm for 2 weeks. She is to keep the dressing on in the site dry for 1 week and then she can shower. She will have a device and wound check in about 10 days in our [facility] office. We can restart her Eliquis and continue her on all her other medicines and she will follow up with general cardiology as scheduled. I attest to the content of the Intraoperative Record and any orders documented therein. Any exceptions are noted below. SUZANNE
[2019-07-17 11:47] LABS: Creatinine Clr Calc Pharmacy 50.7 ml/min; Est GFR (African American) 60.3
[2019-07-17] MEDS: METOPROLOL SUCC 25MG EXT REL TAB PO SCH (20:03)
[2019-07-17] MEDS: APIXABAN 5 MG TABLET PO SCH (20:04)
[2019-07-17] MEDS: SACUBITRIL-VALSARTAN 24-26 MG TAB PO SCH (20:04)
[2019-07-17] MEDS ORDERED: ATORVASTATIN 40 MG TAB PO SCH (21:00)
[2019-07-18] MEDS ORDERED: LEVOTHYROXINE SODIUM 125 MCG TABLET PO SCH (06:30)
--- NOTE | 2019-07-18 06:39 | XRay Report ---
XR chest 2V PA/lateral HISTORY: 74 years-old Female post implant status post placement of a left subclavian pacer/AICD COMPARISON: Chest radiograph 05/01/2019 TECHNIQUE: PA and lateral views of the chest FINDINGS: Positioning of the patient's left upper extremity limits the lateral view. Left subclavian pacer/AICD is noted. 3 leads appear to be intact. There is no postprocedural pneumothorax identified. Cardiac s ilhouette is mildly enlarged. No large pleural effusion, focal airspace consolidation or overt pulmon abril edema. Surgical clips project over the right lower neck. Degenerative changes of the shoulders an d spine. IMPRESSION: Status post placement of a left subclavian pacer/AICD. No postprocedural pneumothorax. ACT 112: Negative or not required by law. The above report was generated using voice recognition software. It may contain grammatical, syntax o r spelling errors. Electronically signed by: Curt Jackson M.D. 07/18/2019 6:38 AM
[2019-07-18 07:15] LABS: Creatinine Clr Calc Pharmacy 51.9 ml/min; Est GFR (Non-African American) 55.2
[2019-07-18] MEDS ORDERED: METFORMIN HCL 500 MG TAB PO SCH (08:00)
[2019-07-18] MEDS: SACUBITRIL-VALSARTAN 24-26 MG TAB PO SCH (08:17)
[2019-07-18] MEDS: METOPROLOL SUCC 25MG EXT REL TAB PO SCH (08:17)
[2019-07-18] MEDS: APIXABAN 5 MG TABLET PO SCH (08:17)
[2019-07-18] MEDS ORDERED: AMIODARONE 200 MG TAB PO SCH (09:00)
[2019-07-18] MEDS ORDERED: SPIRONOLACTONE 25 MG TAB PO SCH (09:00)
== END 2019-07-18 09:49 | disposition home or self-care (01) ==
LOC: 2S 06:19 → EP 06:19
PROC: EPB.ICD (2019-07-17 08:00)